=== PATIENT | female | born 1950 | race Caucasian/White ===

== ENCOUNTER 2021-05-14 18:04 | Emergency (ER) | payer OTHER, MEDICAID ==
[~2021-05-14] VITALS: Ht 162.6 cm; Wt 90.7 kg
[~2021-05-14 18:04] MED LIST: ARIP2TAB PO; DULO60CA PO; LEV50T PO; MELO1TAB73 PO; METO25TA93 PO; OMEP20CA74 PO; TRAZ100T3 PO
[2021-05-14] MEDS ORDERED: LORazepam 2MG/ML-1ML VIAL IV ONE (18:45)
[2021-05-14 19:38] LABS: Basophils # (auto) 0 10 ^3/uL (0-0.2); Basophils % (auto) 0.4 % (0.0-2.0); Eosinophils # (auto) 0.1 10 ^3/uL (0-0.8); Eosinophils % (auto) 1.6 % (0.0-7.0); Hematocrit 45.7 % (36.0-46.0); Hemoglobin 14.9 g/dL (12.2-16.2); Lymphocytes # (auto) 1.9 10 ^3/uL (0.4-5.4); Lymphocytes % (auto) 24.9 % (10.0-50.0); Mean Corpuscular Hemoglobin 29.3 pg (28.0-32.0); Mean Corpuscular Hgb Conc. 32.7 g/dL (32.0-36.0); Mean Corpuscular Volume 89.7 fL (80.0-100.0); Monocytes # (auto) 0.6 10 ^3/uL (0-1.3); Monocytes % (auto) 7.2 % (0.0-12.0); Neutrophils # (auto) 5.1 10 ^3/uL (1.6-8.6); Neutrophils % (auto) 65.9 % (37.0-80.0); Nucleated Red Blood Cells % 0.1 %; Red Blood Cells 5.09 10^6/uL (4.0-5.20); Red Cell Distribution Width 13.9 % (11.8-14.3); White Blood Cell 7.8 10^3/uL (4.4-10.8)
[2021-05-14 19:52] LABS: Albumin 3.2 g/dL (3.4-5.0); Calcium 8.7 mg/dL (8.5-10.1)
[2021-05-14 19:56] LABS: BUN/Creatinine Ratio 9.7; Bilirubin, Total 0.7 mg/dL (0.2-1.0); Total Protein 7.4 g/dL (6.4-8.2)
[2021-05-14] MEDS ORDERED: levETIRAcetam 500 MG/5ML INJ IV ONE (20:57)
[2021-05-14 21:04] LABS: Lactic Acid w/Reflex 3.2 mmol/L (0.4-2.0)
[2021-05-14] MEDS ORDERED: KETOROLAC TROMETH 30 MG/ML 1ML VIAL IV ONE (21:45)
[2021-05-14 22:05] LABS: Lipase 110 U/L (73-393)
[2021-05-14 23:00] VITALS: BP 125/66
== END 2021-05-15 00:24 | disposition home or self-care (01) ==
LOC: EDBD 18:04 → ER 18:06
DX: R56.9 Unspecified convulsions (principal); I10 Essential (primary) hypertension; E78.5 Hyperlipidemia, unspecified; M19.90 Unspecified osteoarthritis, unspecified site; Z88.1 Allergy status to other antibiotic agents; Z79.899 Other long term (current) drug therapy
CPT/HCPCS: 36415; 70450; 71045; 80053; 82542; 83605; 83690; 84484; 85025; 96365; 96375; 99285; J1885; J1953; J2060; J7060

== ENCOUNTER 2021-09-11 03:31 | Inpatient (IN) | payer OTHER, MEDICAID ==
[~2021-09-11] VITALS: Ht 172.7 cm; Wt 104.4 kg
[2021-09-11] MEDS ORDERED: LORazepam 2MG/ML-1ML VIAL IV ONE (03:50)
[2021-09-11] MEDS ORDERED: ACETAMINOPHEN 650 MG RECT SUPP PR ONE (04:15)
[2021-09-11 05:03] LABS: Basophils # (auto) 0 10 ^3/uL (0-0.2); Basophils % (auto) 0.3 % (0.0-2.0); Eosinophils # (auto) 0 10 ^3/uL (0-0.8); Hematocrit 42.5 % (36.0-46.0); Hemoglobin 14.4 g/dL (12.2-16.2); Lymphocytes # (auto) 0.7 10 ^3/uL (0.4-5.4); Lymphocytes % (auto) 5.7 % (10.0-50.0); Mean Corpuscular Hgb Conc. 33.9 g/dL (32.0-36.0); Mean Corpuscular Volume 88.4 fL (80.0-100.0); Monocytes # (auto) 0.5 10 ^3/uL (0-1.3); Monocytes % (auto) 4.1 % (0.0-12.0); Neutrophils # (auto) 10.5 10 ^3/uL (1.6-8.6); Neutrophils % (auto) 89.9 % (37.0-80.0); Nucleated Red Blood Cells % 0.2 %; Red Blood Cells 4.81 10^6/uL (4.0-5.20); White Blood Cell 11.7 10^3/uL (4.4-10.8)
[2021-09-11 05:21] LABS: Albumin 3.5 g/dL (3.4-5.0); Calcium 9.4 mg/dL (8.5-10.1); Potassium 4.8 mmol/L (3.5-5.1)
[2021-09-11 05:24] LABS: Lactic Acid w/Reflex 2.2 mmol/L (0.4-2.0)
[2021-09-11 05:28] LABS: BUN/Creatinine Ratio 10.9; Bilirubin, Total 0.7 mg/dL (0.2-1.0); Total Protein 7.4 g/dL (6.4-8.2)
[2021-09-11 05:38] LABS: INR 1.06 (0.9-1.15); Partial Thromboplastin Time 23.6 sec (23.6-33.0)
[2021-09-11] MEDS ORDERED: SODIUM CHLORIDE 0.9% 1,000 ML IV ONE (06:00)
[2021-09-11] MEDS ORDERED: levoFLOXacin 750MG 150 ML IV ONE (06:00)
[2021-09-11] MEDS ORDERED: ENOXAPARIN SOD 100 MG/1 ML SYRINGE SC ONE (06:15)
[2021-09-11] MEDS ORDERED: ASPirin 300 MG RECTAL SUPP PR ONE (06:15)
[2021-09-11 06:29] LABS: Urine Bacteria MANY /hpf (None Seen); Urine Blood 1+ /uL (Negative); Urine Hyaline Cast FEW /lpf (0 - 2); Urine Mucus FEW (None Seen); Urine Specific Gravity 1.019 (1.001-1.035); Urine WBC 1169 /hpf (0 - 5); Urine WBC Clumps PRESENT /hpf (None Seen)
[2021-09-11] MEDS ORDERED: MORPHINE SULFATE INJECTION 2 MG/ML SYRG IV PRN ×2 (10:30→11:45)
[2021-09-11] MEDS ORDERED: NITROGLYCERIN 0.4 MG SL TAB SL PRN (10:30)
[2021-09-11] MEDS ORDERED: METOPROLOL SUCCINATE XL 50 MG TAB PO ONE (11:45)
[2021-09-11] MEDS ORDERED: VANCOMYCIN PER PHARMACY 0 MG IV SCH (11:45)
[2021-09-11] MEDS ORDERED: FOLIC ACID 1 MG TAB PO ONE (11:45)
[2021-09-11] MEDS ORDERED: MEROPENEM 1GM IVPB 100 ML IV ONE (11:45)
[2021-09-11] MEDS ORDERED: LACTULOSE 20Gm/30ML SOLN PO PRN (11:45)
[2021-09-11] MEDS ORDERED: ASPirin 81 mg TAB PO ONE (11:45)
[2021-09-11] MEDS ORDERED: ATORVASTATIN 20 MG TAB PO ONE (11:45)
[2021-09-11] MEDS ORDERED: PANTOPRAZOLE 40 MG/10 ML VIAL INJ IV ONE (11:45)
[2021-09-11] MEDS ORDERED: SUCRALFATE 1 GM/10 ML ORAL SUSP PO ONE (11:45)
[2021-09-11] MEDS ORDERED: HYDROcodone-ACET 5/325MG TAB PO ONE (11:45)
[2021-09-11] MEDS ORDERED: LORazepam 0.5 MG TAB PO PRN (11:45)
[2021-09-11] MEDS ORDERED: DOCUSATE SOD 100 MG CAP PO PRN (11:45)
[2021-09-11] MEDS ORDERED: HYDROcodone-ACET 5/325MG TAB PO PRN (11:45)
[2021-09-11] MEDS ORDERED: LORazepam 2MG/ML-1ML VIAL IV PRN (11:45)
[2021-09-11] MEDS ORDERED: IPRATROPIUM BROM 0.5 MG/2.5ML INH SOL NEB ONE (11:45)
[2021-09-11] MEDS ORDERED: ONDANSETRON HCL 4 MG/2 ML VIAL IV PRN (11:45)
[2021-09-11 13:00] VITALS: BP 94/68
[2021-09-11] MEDS: SODIUM CHLORIDE 0.9% 1,000 ML IV SCH (13:06)
[2021-09-11 13:26] VITALS: BP 110/76
[2021-09-11 14:16] VITALS: BP 99/68
[2021-09-11] MEDS: VANCOMYCIN 1GM/250ML 250 ML IV SCH (16:32)
[2021-09-11] MEDS: SUCRALFATE 1 GM/10 ML ORAL SUSP PO SCH ×2 (16:32→22:00)
[2021-09-11 17:00] VITALS: BP 117/72
[2021-09-11] MEDS: IPRATROPIUM BROM 0.5 MG/2.5ML INH SOL NEB SCH ×2 (18:35→22:00)
[2021-09-11 22:00] VITALS: BP 115/76
[2021-09-11] MEDS ORDERED: MEROPENEM 1GM IVPB 100 ML IV SCH (22:00)
[2021-09-11] MEDS: HEPARIN SODIUM (PORCINE) 5000 UNITS/ML 1ML VIAL SC SCH (22:05)
[2021-09-11] MEDS: CEFEPIME 1 GM in SODIUM CHL 0.9% 50 ML IV SCH (22:40)
[2021-09-12] VITALS (10 sets, daily range): BP systolic 81–113; BP diastolic 36–65
[2021-09-12] MEDS: IPRATROPIUM BROM 0.5 MG/2.5ML INH SOL NEB SCH ×6 (02:00→22:12)
[2021-09-12] MEDS: CEFEPIME 1 GM in SODIUM CHL 0.9% 50 ML IV SCH ×3 (02:40→22:46)
[2021-09-12] MEDS: SODIUM CHLORIDE 0.9% 1,000 ML IV SCH ×2 (04:45→18:54)
[2021-09-12 06:00] LABS: Basophils # (auto) 0 10 ^3/uL (0-0.2); Basophils % (auto) 0.2 % (0.0-2.0); Eosinophils # (auto) 0 10 ^3/uL (0-0.8); Hematocrit 36.6 % (36.0-46.0); Hemoglobin 12.6 g/dL (12.2-16.2); Lymphocytes % (auto) 9.1 % (10.0-50.0); Mean Corpuscular Hgb Conc. 34.3 g/dL (32.0-36.0); Mean Corpuscular Volume 87.3 fL (80.0-100.0); Monocytes # (auto) 0.6 10 ^3/uL (0-1.3); Monocytes % (auto) 5.5 % (0.0-12.0); Neutrophils # (auto) 9.4 10 ^3/uL (1.6-8.6); Neutrophils % (auto) 85.2 % (37.0-80.0); Red Cell Distribution Width 15.2 % (11.8-14.3)
[2021-09-12 06:15] LABS: BUN/Creatinine Ratio 19.1; Calcium 8.8 mg/dL (8.5-10.1); Potassium 3.5 mmol/L (3.5-5.1)
[2021-09-12] MEDS: SUCRALFATE 1 GM/10 ML ORAL SUSP PO SCH ×4 (06:46→22:00)
[2021-09-12] MEDS ORDERED: LEVOTHYROXINE SODIUM 50 MCG TAB PO SCH (07:00)
[2021-09-12] MEDS ORDERED: ASPirin 81 mg TAB PO SCH (10:00)
[2021-09-12] MEDS: CHOLECALCIFEROL (VITD3) 2,000 UNIT CAP/TAB PO SCH (10:00)
[2021-09-12] MEDS: CYANOCOBALAMIN 500 MCG TAB PO SCH (10:00)
[2021-09-12] MEDS: FOLIC ACID 1 MG TAB PO SCH (10:00)
[2021-09-12] MEDS ORDERED: METOPROLOL SUCCINATE XL 50 MG TAB PO SCH (10:00)
[2021-09-12] MEDS ORDERED: DULoxetine HCL 30 MG CAP PO SCH (10:00)
[2021-09-12] MEDS: THIAMINE HCL 100 MG TAB PO SCH (10:00)
[2021-09-12] MEDS: PANTOPRAZOLE 40 MG/10 ML VIAL INJ IV SCH (10:47)
[2021-09-12] MEDS: HEPARIN SODIUM (PORCINE) 5000 UNITS/ML 1ML VIAL SC SCH ×2 (11:02→22:07)
[2021-09-12] MEDS: VANCOMYCIN 1GM/250ML 250 ML IV SCH (11:33)
[2021-09-12] MEDS ORDERED: ACETAMINOPHEN 650 MG RECT SUPP PR PRN (14:30)
[2021-09-12] MEDS ORDERED: SODIUM CHLORIDE 0.9% 1,000 ML IV ONE ×2 (14:30→15:00)
[2021-09-12] MEDS ORDERED: ASPirin 300 MG RECTAL SUPP PR SCH (14:49)
[2021-09-12] MEDS: ACETAMINOPHEN 650 MG RECT SUPP PR PRN ×2 (15:30→17:57)
[2021-09-12] MEDS ORDERED: DEXTROSE (50%) 50ML SYRG IV PRN (16:00)
[2021-09-12] MEDS ORDERED: CLOP75TA28 PO (16:33)
[2021-09-12] MEDS ORDERED: FOLI1TAB6 PO (16:33)
[2021-09-12] MEDS ORDERED: ATOR20TA PO (16:33)
[2021-09-12] MEDS ORDERED: LEVE500T32 PO (16:33)
[2021-09-12] MEDS: InsuLIN REG 1unit/0.01ml Soln (100units/ml) SC SCH (18:00)
[2021-09-12] MEDS: ACCU-CHEK COMFORT CURVE STRIP VI SCH (18:00)
[2021-09-12] MEDS: LEVOTHYROXINE SODIUM 100 MCG/5 ML INJ IV SCH (18:54)
[2021-09-12] MEDS ORDERED: ATORVASTATIN 20 MG TAB PO SCH (22:00)
[2021-09-12] MEDS: ATORVASTATIN 20 MG TAB PO SCH (22:30)
[2021-09-13] VITALS (56 sets, daily range): BP systolic 87–122; BP diastolic 46–97
[2021-09-13] MEDS: InsuLIN REG 1unit/0.01ml Soln (100units/ml) SC SCH ×5 (01:22→23:44)
[2021-09-13] MEDS: ACCU-CHEK COMFORT CURVE STRIP VI SCH ×5 (01:22→23:36)
[2021-09-13] MEDS: SODIUM CHLORIDE 0.9% 1,000 ML IV SCH ×3 (02:00→21:32)
[2021-09-13] MEDS: IPRATROPIUM BROM 0.5 MG/2.5ML INH SOL NEB SCH ×6 (02:17→22:11)
[2021-09-13] MEDS: VANCOMYCIN 1GM/250ML 250 ML IV SCH ×2 (03:43→21:31)
[2021-09-13 05:17] LABS: Calcium 8.8 mg/dL (8.5-10.1); Potassium 3.3 mmol/L (3.5-5.1)
[2021-09-13] MEDS: CEFEPIME 1 GM in SODIUM CHL 0.9% 50 ML IV SCH ×3 (05:50→21:32)
[2021-09-13] MEDS: SUCRALFATE 1 GM/10 ML ORAL SUSP PO SCH ×4 (05:53→22:00)
[2021-09-13] MEDS: PANTOPRAZOLE 40 MG/10 ML VIAL INJ IV SCH (09:31)
[2021-09-13] MEDS: HEPARIN SODIUM (PORCINE) 5000 UNITS/ML 1ML VIAL SC SCH ×2 (09:34→22:28)
[2021-09-13] MEDS: CYANOCOBALAMIN 500 MCG TAB PO SCH (09:37)
[2021-09-13] MEDS: CHOLECALCIFEROL (VITD3) 2,000 UNIT CAP/TAB PO SCH (09:37)
[2021-09-13] MEDS: FOLIC ACID 1 MG TAB PO SCH (09:37)
[2021-09-13] MEDS: THIAMINE HCL 100 MG TAB PO SCH (09:37)
[2021-09-13] MEDS: LEVOTHYROXINE SODIUM 100 MCG/5 ML INJ IV SCH (10:15)
[2021-09-13] MEDS: ASPirin 300 MG RECTAL SUPP PR SCH (10:15)
[2021-09-13] MEDS: LORazepam 2MG/ML-1ML VIAL IV PRN ×3 (10:26→17:22)
[2021-09-13] MEDS ORDERED: FUROSEMIDE 40 MG/4 ML VIAL IV ONE (11:15)
[2021-09-13] MEDS ORDERED: methylPREDNISolone SOD SUCC 125 MG/2 ML VL IV ONE (11:15)
[2021-09-13] MEDS: NOREPINEPHRINE 8 MG/250ML KIT 250 ML IV SCH (12:30)
[2021-09-13] MEDS ORDERED: POTASSIUM CHL 20MEQ/100ML 100 ML IV ONE (13:30)
[2021-09-13] MEDS ORDERED: MEROPENEM 500MG IVPB 50 ML IV SCH (14:00)
[2021-09-13 14:15] LABS: Basophils # (auto) 0 10 ^3/uL (0-0.2); Basophils % (auto) 0.3 % (0.0-2.0); Eosinophils # (auto) 0 10 ^3/uL (0-0.8); Eosinophils % (auto) 0.2 % (0.0-7.0); Hematocrit 41.7 % (36.0-46.0); Hemoglobin 13.8 g/dL (12.2-16.2); Lymphocytes # (auto) 1.7 10 ^3/uL (0.4-5.4); Lymphocytes % (auto) 11.7 % (10.0-50.0); Mean Corpuscular Hemoglobin 29.5 pg (28.0-32.0); Mean Corpuscular Hgb Conc. 33.1 g/dL (32.0-36.0); Mean Corpuscular Volume 88.9 fL (80.0-100.0); Monocytes % (auto) 6.8 % (0.0-12.0); Neutrophils # (auto) 11.5 10 ^3/uL (1.6-8.6); Nucleated Red Blood Cells % 0.1 %; Red Blood Cells 4.69 10^6/uL (4.0-5.20); White Blood Cell 14.2 10^3/uL (4.4-10.8)
[2021-09-13] MEDS ORDERED: ROCURONIUM 10MG/ML 10ML VIAL IV ONE (14:45)
[2021-09-13] MEDS ORDERED: ETOMIDATE (2MG/ML) 20ML VIAL IV ONE (14:45)
[2021-09-13] MEDS ORDERED: MIDAZOLAM DRIP 50 mg/50mL 50 ML IV SCH (14:45)
[2021-09-13] MEDS: PROPOFOL 100 ML IV SCH ×2 (15:11→21:00)
[2021-09-13] MEDS: fentaNYL Drip 2500mCg/250mlNS 250 ML IV SCH (15:13)
[2021-09-13] MEDS: ATORVASTATIN 20 MG TAB PO SCH (22:00)
[2021-09-14] VITALS (50 sets, daily range): BP systolic 80–128; BP diastolic 40–84
[2021-09-14] MEDS: IPRATROPIUM BROM 0.5 MG/2.5ML INH SOL NEB SCH ×6 (02:05→22:16)
[2021-09-14 05:11] LABS: Basophils # (auto) 0 10 ^3/uL (0-0.2); Basophils % (auto) 0.2 % (0.0-2.0); Eosinophils # (auto) 0 10 ^3/uL (0-0.8); Hematocrit 36.3 % (36.0-46.0); Hemoglobin 12.4 g/dL (12.2-16.2); Lymphocytes # (auto) 1.1 10 ^3/uL (0.4-5.4); Lymphocytes % (auto) 10.9 % (10.0-50.0); Mean Corpuscular Hemoglobin 29.8 pg (28.0-32.0); Mean Corpuscular Hgb Conc. 34.1 g/dL (32.0-36.0); Mean Corpuscular Volume 87.4 fL (80.0-100.0); Monocytes # (auto) 0.4 10 ^3/uL (0-1.3); Monocytes % (auto) 4.2 % (0.0-12.0); Neutrophils # (auto) 8.3 10 ^3/uL (1.6-8.6); Neutrophils % (auto) 84.7 % (37.0-80.0); Nucleated Red Blood Cells % 0.1 %; Red Blood Cells 4.15 10^6/uL (4.0-5.20); Red Cell Distribution Width 14.6 % (11.8-14.3); White Blood Cell 9.8 10^3/uL (4.4-10.8)
[2021-09-14] MEDS: PROPOFOL 100 ML IV SCH ×4 (05:15→19:49)
[2021-09-14 05:24] LABS: Calcium 8.7 mg/dL (8.5-10.1); Potassium 3.2 mmol/L (3.5-5.1)
[2021-09-14 05:26] LABS: BUN/Creatinine Ratio 25.7
[2021-09-14] MEDS: CEFEPIME 1 GM in SODIUM CHL 0.9% 50 ML IV SCH ×3 (05:31→22:00)
[2021-09-14] MEDS: ACCU-CHEK COMFORT CURVE STRIP VI SCH ×3 (05:47→18:00)
[2021-09-14] MEDS: InsuLIN REG 1unit/0.01ml Soln (100units/ml) SC SCH ×3 (05:47→17:50)
[2021-09-14] MEDS: SUCRALFATE 1 GM/10 ML ORAL SUSP PO SCH ×4 (05:47→21:17)
[2021-09-14] MEDS: PANTOPRAZOLE 40 MG/10 ML VIAL INJ IV SCH (09:33)
[2021-09-14] MEDS: methylPREDNISolone SOD SUCC 40 MG/ML VL IV SCH ×2 (09:33→21:09)
[2021-09-14] MEDS: HEPARIN SODIUM (PORCINE) 5000 UNITS/ML 1ML VIAL SC SCH ×2 (09:37→21:10)
[2021-09-14] MEDS: SODIUM CHLORIDE 0.9% 1,000 ML IV SCH ×3 (09:40→23:45)
[2021-09-14] MEDS: CHOLECALCIFEROL (VITD3) 2,000 UNIT CAP/TAB PO SCH (10:00)
[2021-09-14] MEDS: FOLIC ACID 1 MG TAB PO SCH (10:00)
[2021-09-14] MEDS: CYANOCOBALAMIN 500 MCG TAB PO SCH (10:00)
[2021-09-14] MEDS: LEVOTHYROXINE SODIUM 100 MCG/5 ML INJ IV SCH (10:00)
[2021-09-14] MEDS: ASPirin 300 MG RECTAL SUPP PR SCH (10:00)
[2021-09-14] MEDS: THIAMINE HCL 100 MG TAB PO SCH (10:00)
[2021-09-14] MEDS: MIDAZOLAM DRIP 50 mg/50mL 50 ML IV SCH (11:44)
[2021-09-14] MEDS: POTASSIUM CHL 20MEQ/100ML 100 ML IV SCH ×2 (13:38→15:23)
[2021-09-14] MEDS: fentaNYL Drip 2500mCg/250mlNS 250 ML IV SCH (14:45)
[2021-09-14] MEDS: NOREPINEPHRINE 8 MG/250ML KIT 250 ML IV SCH (15:31)
[2021-09-14] MEDS: VANCOMYCIN 1GM/250ML 250 ML IV SCH (17:35)
[2021-09-14] MEDS: ATORVASTATIN 20 MG TAB PO SCH (21:09)
[2021-09-15] VITALS (97 sets, daily range): BP systolic 84–138; BP diastolic 33–107
[2021-09-15] MEDS: ACCU-CHEK COMFORT CURVE STRIP VI SCH ×5 (00:05→22:45)
[2021-09-15] MEDS: InsuLIN REG 1unit/0.01ml Soln (100units/ml) SC SCH ×5 (00:06→22:45)
[2021-09-15] MEDS: IPRATROPIUM BROM 0.5 MG/2.5ML INH SOL NEB SCH ×4 (02:00→13:55)
[2021-09-15 03:46] LABS: Basophils # (auto) 0.1 10 ^3/uL (0-0.2); Basophils % (auto) 0.9 % (0.0-2.0); Eosinophils # (auto) 0 10 ^3/uL (0-0.8); Hematocrit 37.2 % (36.0-46.0); Hemoglobin 12.5 g/dL (12.2-16.2); Lymphocytes % (auto) 6.1 % (10.0-50.0); Mean Corpuscular Hemoglobin 29.4 pg (28.0-32.0); Mean Corpuscular Hgb Conc. 33.6 g/dL (32.0-36.0); Mean Corpuscular Volume 87.5 fL (80.0-100.0); Monocytes # (auto) 0.5 10 ^3/uL (0-1.3); Monocytes % (auto) 3.3 % (0.0-12.0); Neutrophils # (auto) 14.3 10 ^3/uL (1.6-8.6); Neutrophils % (auto) 89.7 % (37.0-80.0); Nucleated Red Blood Cells % 0.7 %; Red Blood Cells 4.25 10^6/uL (4.0-5.20)
[2021-09-15 04:06] LABS: BUN/Creatinine Ratio 27.8; Calcium 8.4 mg/dL (8.5-10.1); Potassium 3.4 mmol/L (3.5-5.1)
[2021-09-15] MEDS: CEFEPIME 1 GM in SODIUM CHL 0.9% 50 ML IV SCH ×3 (05:33→14:17)
[2021-09-15] MEDS: SODIUM CHLORIDE 0.9% 1,000 ML IV SCH ×3 (05:34→23:45)
[2021-09-15] MEDS: SUCRALFATE 1 GM/10 ML ORAL SUSP PO SCH ×4 (05:34→22:20)
[2021-09-15] MEDS: HEPARIN SODIUM (PORCINE) 5000 UNITS/ML 1ML VIAL SC SCH ×2 (09:25→22:20)
[2021-09-15] MEDS: FOLIC ACID 1 MG TAB PO SCH (09:34)
[2021-09-15] MEDS: THIAMINE HCL 100 MG TAB PO SCH (09:34)
[2021-09-15] MEDS: PANTOPRAZOLE 40 MG/10 ML VIAL INJ IV SCH (09:34)
[2021-09-15] MEDS: methylPREDNISolone SOD SUCC 40 MG/ML VL IV SCH ×2 (09:34→22:20)
[2021-09-15] MEDS: CHOLECALCIFEROL (VITD3) 2,000 UNIT CAP/TAB PO SCH (09:34)
[2021-09-15] MEDS: CYANOCOBALAMIN 500 MCG TAB PO SCH (09:34)
[2021-09-15] MEDS: ASPirin 300 MG RECTAL SUPP PR SCH (09:35)
[2021-09-15] MEDS: LEVOTHYROXINE SODIUM 100 MCG/5 ML INJ IV SCH (09:35)
[2021-09-15] MEDS: VANCOMYCIN 1GM/250ML 250 ML IV SCH ×2 (09:42→22:59)
[2021-09-15] MEDS: NOREPINEPHRINE 8 MG/250ML KIT 250 ML IV SCH ×2 (11:15→12:06)
[2021-09-15] MEDS: MIDAZOLAM DRIP 50 mg/50mL 50 ML IV SCH (11:30)
[2021-09-15] MEDS ORDERED: POTASSIUM CHL 20MEQ/100ML 100 ML IV ONE (14:00)
[2021-09-15 14:16] LABS: Urine Bacteria FEW /hpf (None Seen); Urine Blood Negative /uL (Negative); Urine Mucus FEW (None Seen); Urine Specific Gravity 1.022 (1.001-1.035); Urine WBC 6 /hpf (0 - 5)
[2021-09-15] MEDS: fentaNYL Drip 2500mCg/250mlNS 250 ML IV SCH (14:43)
[2021-09-16] VITALS (75 sets, daily range): BP systolic 96–143; BP diastolic 43–79
[2021-09-16] MEDS: ATORVASTATIN 20 MG TAB PO SCH ×2 (00:40→23:00)
[2021-09-16] MEDS: CEFEPIME 1 GM in SODIUM CHL 0.9% 50 ML IV SCH ×3 (00:40→14:20)
[2021-09-16 04:22] LABS: Basophils # (auto) 0 10 ^3/uL (0-0.2); Basophils % (auto) 0.2 % (0.0-2.0); Eosinophils # (auto) 0 10 ^3/uL (0-0.8); Hematocrit 35.8 % (36.0-46.0); Hemoglobin 12.2 g/dL (12.2-16.2); Lymphocytes # (auto) 0.9 10 ^3/uL (0.4-5.4); Lymphocytes % (auto) 7.8 % (10.0-50.0); Mean Corpuscular Hgb Conc. 34.2 g/dL (32.0-36.0); Mean Corpuscular Volume 87.7 fL (80.0-100.0); Monocytes # (auto) 0.5 10 ^3/uL (0-1.3); Monocytes % (auto) 3.8 % (0.0-12.0); Neutrophils # (auto) 10.5 10 ^3/uL (1.6-8.6); Neutrophils % (auto) 88.2 % (37.0-80.0); Nucleated Red Blood Cells % 0.1 %; Red Blood Cells 4.08 10^6/uL (4.0-5.20); Red Cell Distribution Width 14.9 % (11.8-14.3); White Blood Cell 11.9 10^3/uL (4.4-10.8)
[2021-09-16 04:37] LABS: BUN/Creatinine Ratio 20.5; Calcium 8.1 mg/dL (8.5-10.1); Potassium 3.7 mmol/L (3.5-5.1)
[2021-09-16] MEDS: ACCU-CHEK COMFORT CURVE STRIP VI SCH ×3 (05:59→17:03)
[2021-09-16] MEDS: InsuLIN REG 1unit/0.01ml Soln (100units/ml) SC SCH ×3 (06:00→17:03)
[2021-09-16] MEDS: SUCRALFATE 1 GM/10 ML ORAL SUSP PO SCH ×4 (06:09→23:00)
[2021-09-16] MEDS: fentaNYL Drip 2500mCg/250mlNS 250 ML IV SCH ×2 (08:02→21:35)
[2021-09-16] MEDS: NOREPINEPHRINE 8 MG/250ML KIT 250 ML IV SCH (08:03)
[2021-09-16] MEDS: SODIUM CHLORIDE 0.9% 1,000 ML IV SCH ×3 (08:05→23:45)
[2021-09-16] MEDS: LEVOTHYROXINE SODIUM 100 MCG/5 ML INJ IV SCH (09:12)
[2021-09-16] MEDS: PANTOPRAZOLE 40 MG/10 ML VIAL INJ IV SCH (09:12)
[2021-09-16] MEDS: methylPREDNISolone SOD SUCC 40 MG/ML VL IV SCH ×2 (09:12→23:00)
[2021-09-16] MEDS: THIAMINE HCL 100 MG TAB PO SCH (09:13)
[2021-09-16] MEDS: FOLIC ACID 1 MG TAB PO SCH (09:13)
[2021-09-16] MEDS: CYANOCOBALAMIN 500 MCG TAB PO SCH (09:13)
[2021-09-16] MEDS: CHOLECALCIFEROL (VITD3) 2,000 UNIT CAP/TAB PO SCH (09:14)
[2021-09-16] MEDS: HEPARIN SODIUM (PORCINE) 5000 UNITS/ML 1ML VIAL SC SCH ×2 (09:21→23:00)
[2021-09-16] MEDS: VANCOMYCIN 1GM/250ML 250 ML IV SCH ×2 (10:11→23:00)
[2021-09-16] MEDS: ASPirin 300 MG RECTAL SUPP PR SCH (10:11)
[2021-09-16 10:50] LABS: INR 1.03 (0.9-1.15)
[2021-09-16] MEDS: MIDAZOLAM DRIP 50 mg/50mL 50 ML IV SCH (11:17)
[2021-09-16] MEDS: PROPOFOL 100 ML IV SCH (14:25)
[2021-09-17] VITALS (103 sets, daily range): BP systolic 61–139; BP diastolic 35–123
[2021-09-17] MEDS: CEFEPIME 1 GM in SODIUM CHL 0.9% 50 ML IV SCH ×4 (00:30→23:50)
[2021-09-17 04:54] LABS: Basophils # (auto) 0 10 ^3/uL (0-0.2); Basophils % (auto) 0.2 % (0.0-2.0); Eosinophils # (auto) 0 10 ^3/uL (0-0.8); Lymphocytes # (auto) 1.1 10 ^3/uL (0.4-5.4); Lymphocytes % (auto) 11.5 % (10.0-50.0); Mean Corpuscular Hemoglobin 29.9 pg (28.0-32.0); Mean Corpuscular Hgb Conc. 34.2 g/dL (32.0-36.0); Mean Corpuscular Volume 87.3 fL (80.0-100.0); Monocytes # (auto) 0.5 10 ^3/uL (0-1.3); Monocytes % (auto) 5.6 % (0.0-12.0); Neutrophils # (auto) 7.8 10 ^3/uL (1.6-8.6); Neutrophils % (auto) 82.7 % (37.0-80.0); Nucleated Red Blood Cells % 0.1 %; Red Blood Cells 4.01 10^6/uL (4.0-5.20); White Blood Cell 9.4 10^3/uL (4.4-10.8)
[2021-09-17 05:02] LABS: Potassium 3.5 mmol/L (3.5-5.1)
[2021-09-17 05:04] LABS: BUN/Creatinine Ratio 17.2
[2021-09-17] MEDS: ACCU-CHEK COMFORT CURVE STRIP VI SCH ×4 (06:00→17:15)
[2021-09-17] MEDS: InsuLIN REG 1unit/0.01ml Soln (100units/ml) SC SCH ×4 (06:00→17:14)
[2021-09-17] MEDS: SUCRALFATE 1 GM/10 ML ORAL SUSP PO SCH ×4 (07:17→21:08)
[2021-09-17] MEDS: SODIUM CHLORIDE 0.9% 1,000 ML IV SCH ×3 (08:04→23:45)
[2021-09-17] MEDS: LEVOTHYROXINE SODIUM 100 MCG/5 ML INJ IV SCH (09:56)
[2021-09-17] MEDS: methylPREDNISolone SOD SUCC 40 MG/ML VL IV SCH ×2 (09:58→21:07)
[2021-09-17] MEDS: FOLIC ACID 1 MG TAB PO SCH (10:00)
[2021-09-17] MEDS: PANTOPRAZOLE 40 MG/10 ML VIAL INJ IV SCH (10:00)
[2021-09-17] MEDS: CHOLECALCIFEROL (VITD3) 2,000 UNIT CAP/TAB PO SCH (10:01)
[2021-09-17] MEDS: CYANOCOBALAMIN 500 MCG TAB PO SCH (10:01)
[2021-09-17] MEDS: ASPirin 81 mg TAB PO SCH (10:02)
[2021-09-17] MEDS: HEPARIN SODIUM (PORCINE) 5000 UNITS/ML 1ML VIAL SC SCH ×2 (10:15→21:08)
[2021-09-17] MEDS: THIAMINE HCL 100 MG TAB PO SCH (10:28)
[2021-09-17] MEDS: NOREPINEPHRINE 8 MG/250ML KIT 250 ML IV SCH ×2 (11:15→18:30)
[2021-09-17] MEDS: MIDAZOLAM DRIP 50 mg/50mL 50 ML IV SCH (12:16)
[2021-09-17] MEDS: PROPOFOL 100 ML IV SCH (14:45)
[2021-09-17] MEDS: fentaNYL Drip 2500mCg/250mlNS 250 ML IV SCH (18:28)
[2021-09-17] MEDS: ATORVASTATIN 20 MG TAB PO SCH (21:09)
[2021-09-17] MEDS ORDERED: VERAPAMIL 2.5MG/ML INJ 2ML VIAL IV ONE ×2 (22:15→23:00)
[2021-09-18] VITALS (91 sets, daily range): BP systolic 88–138; BP diastolic 41–83
[2021-09-18] MEDS: ACCU-CHEK COMFORT CURVE STRIP VI SCH ×5 (00:30→23:37)
[2021-09-18] MEDS: InsuLIN REG 1unit/0.01ml Soln (100units/ml) SC SCH ×5 (00:30→23:37)
[2021-09-18] MEDS: NOREPINEPHRINE 8 MG/250ML KIT 250 ML IV SCH (02:00)
[2021-09-18 04:08] LABS: Basophils # (auto) 0 10 ^3/uL (0-0.2); Basophils % (auto) 0.1 % (0.0-2.0); Eosinophils # (auto) 0 10 ^3/uL (0-0.8); Hematocrit 34.5 % (36.0-46.0); Hemoglobin 11.7 g/dL (12.2-16.2); Lymphocytes # (auto) 1.2 10 ^3/uL (0.4-5.4); Lymphocytes % (auto) 12.1 % (10.0-50.0); Mean Corpuscular Hemoglobin 29.9 pg (28.0-32.0); Mean Corpuscular Volume 87.8 fL (80.0-100.0); Monocytes # (auto) 0.6 10 ^3/uL (0-1.3); Monocytes % (auto) 5.6 % (0.0-12.0); Neutrophils # (auto) 8.1 10 ^3/uL (1.6-8.6); Neutrophils % (auto) 82.2 % (37.0-80.0); Nucleated Red Blood Cells % 0.1 %; Red Blood Cells 3.93 10^6/uL (4.0-5.20); Red Cell Distribution Width 15.3 % (11.8-14.3); White Blood Cell 9.9 10^3/uL (4.4-10.8)
[2021-09-18 04:11] LABS: Calcium 7.9 mg/dL (8.5-10.1); Potassium 3.5 mmol/L (3.5-5.1)
[2021-09-18] MEDS: CEFEPIME 1 GM in SODIUM CHL 0.9% 50 ML IV SCH ×3 (05:21→23:03)
[2021-09-18] MEDS: SUCRALFATE 1 GM/10 ML ORAL SUSP PO SCH ×4 (05:22→21:08)
[2021-09-18] MEDS: HEPARIN SODIUM (PORCINE) 5000 UNITS/ML 1ML VIAL SC SCH (08:41)
[2021-09-18] MEDS: VANCOMYCIN 1GM/250ML 250 ML IV SCH (08:46)
[2021-09-18] MEDS: SODIUM CHLORIDE 0.9% 1,000 ML IV SCH ×3 (08:53→23:37)
[2021-09-18] MEDS: APIXABAN 2.5 MG TAB PO SCH ×2 (10:00→21:08)
[2021-09-18] MEDS: LEVOTHYROXINE SODIUM 100 MCG/5 ML INJ IV SCH (10:58)
[2021-09-18] MEDS: FOLIC ACID 1 MG TAB PO SCH (10:59)
[2021-09-18] MEDS: CYANOCOBALAMIN 500 MCG TAB PO SCH (10:59)
[2021-09-18] MEDS: CHOLECALCIFEROL (VITD3) 2,000 UNIT CAP/TAB PO SCH (10:59)
[2021-09-18] MEDS: THIAMINE HCL 100 MG TAB PO SCH (10:59)
[2021-09-18] MEDS: methylPREDNISolone SOD SUCC 40 MG/ML VL IV SCH ×2 (11:00→22:07)
[2021-09-18] MEDS: AMIODARONE HCL 200 MG TAB PO SCH (11:00)
[2021-09-18] MEDS: ASPirin 81 mg TAB PO SCH (11:00)
[2021-09-18] MEDS: POTASSIUM CHL 20MEQ/100ML 100 ML IV SCH ×2 (11:01→12:47)
[2021-09-18] MEDS: PANTOPRAZOLE 40 MG/10 ML VIAL INJ IV SCH (11:01)
[2021-09-18] MEDS: MIDAZOLAM DRIP 50 mg/50mL 50 ML IV SCH (11:30)
[2021-09-18] MEDS: PROPOFOL 100 ML IV SCH (14:45)
[2021-09-18] MEDS ORDERED: FUROSEMIDE 20 MG/2 ML VIAL IV ONE (18:30)
[2021-09-18] MEDS: ATORVASTATIN 20 MG TAB PO SCH (21:07)
[2021-09-19] VITALS (25 sets, daily range): BP systolic 94–152; BP diastolic 49–102
[2021-09-19] MEDS: InsuLIN REG 1unit/0.01ml Soln (100units/ml) SC SCH ×3 (06:00→18:00)
[2021-09-19 06:01] LABS: Basophils # (auto) 0 10 ^3/uL (0-0.2); Basophils % (auto) 0.3 % (0.0-2.0); Eosinophils # (auto) 0 10 ^3/uL (0-0.8); Hematocrit 36.2 % (36.0-46.0); Hemoglobin 12.4 g/dL (12.2-16.2); Lymphocytes % (auto) 9.7 % (10.0-50.0); Mean Corpuscular Hemoglobin 29.8 pg (28.0-32.0); Mean Corpuscular Hgb Conc. 34.2 g/dL (32.0-36.0); Mean Corpuscular Volume 87.1 fL (80.0-100.0); Monocytes # (auto) 0.9 10 ^3/uL (0-1.3); Monocytes % (auto) 8.2 % (0.0-12.0); Neutrophils # (auto) 8.8 10 ^3/uL (1.6-8.6); Neutrophils % (auto) 81.8 % (37.0-80.0); Nucleated Red Blood Cells % 0.1 %; Red Blood Cells 4.16 10^6/uL (4.0-5.20); Red Cell Distribution Width 14.8 % (11.8-14.3); White Blood Cell 10.8 10^3/uL (4.4-10.8)
[2021-09-19] MEDS: CEFEPIME 1 GM in SODIUM CHL 0.9% 50 ML IV SCH ×3 (06:08→21:28)
[2021-09-19] MEDS: ACCU-CHEK COMFORT CURVE STRIP VI SCH ×3 (06:08→18:17)
[2021-09-19 06:17] LABS: INR 1.16 (0.9-1.15); Partial Thromboplastin Time 22.5 sec (23.6-33.0)
[2021-09-19] MEDS: SUCRALFATE 1 GM/10 ML ORAL SUSP PO SCH ×3 (06:20→21:28)
[2021-09-19 06:24] LABS: Calcium 8.6 mg/dL (8.5-10.1); Potassium 3.5 mmol/L (3.5-5.1)
[2021-09-19 06:26] LABS: BUN/Creatinine Ratio 24.6
[2021-09-19] MEDS: SODIUM CHLORIDE 0.9% 1,000 ML IV SCH ×3 (07:45→23:45)
[2021-09-19] MEDS ORDERED: LORazepam 2MG/ML-1ML VIAL IV ONE (08:30)
[2021-09-19] MEDS: POTASSIUM CHL 20MEQ/100ML 100 ML IV SCH ×2 (09:51→18:16)
[2021-09-19] MEDS: VANCOMYCIN 1GM/250ML 250 ML IV SCH (09:52)
[2021-09-19] MEDS: PANTOPRAZOLE 40 MG/10 ML VIAL INJ IV SCH (09:53)
[2021-09-19] MEDS: ASPirin 81 mg TAB PO SCH (09:54)
[2021-09-19] MEDS: LEVOTHYROXINE SODIUM 100 MCG/5 ML INJ IV SCH (09:54)
[2021-09-19] MEDS: APIXABAN 2.5 MG TAB PO SCH ×2 (09:55→21:29)
[2021-09-19] MEDS: THIAMINE HCL 100 MG TAB PO SCH (09:55)
[2021-09-19] MEDS: AMIODARONE HCL 200 MG TAB PO SCH (09:55)
[2021-09-19] MEDS: FOLIC ACID 1 MG TAB PO SCH (09:55)
[2021-09-19] MEDS: CYANOCOBALAMIN 500 MCG TAB PO SCH (09:56)
[2021-09-19] MEDS: CHOLECALCIFEROL (VITD3) 2,000 UNIT CAP/TAB PO SCH (09:56)
[2021-09-19] MEDS: methylPREDNISolone SOD SUCC 40 MG/ML VL IV SCH ×2 (10:00→21:28)
[2021-09-19] MEDS ORDERED: FUROSEMIDE 20 MG/2 ML VIAL IV SCH (10:00)
[2021-09-19] MEDS: MORPHINE SULFATE INJECTION 2 MG/ML SYRG IV PRN (13:15)
[2021-09-19] MEDS: hydrALAZINE HCL 20 MG/ML VL IV PRN (13:45)
[2021-09-19] MEDS ORDERED: LIDOCAINE 2%HCL (LOCAL ANESTH.) INJ 10ml MDV ONE (14:11)
[2021-09-19] MEDS: LORazepam 2MG/ML-1ML VIAL IV PRN (15:25)
[2021-09-19 17:03] LABS: Protein, CSF 76.4 mg/dL (15-45)
[2021-09-19 17:05] LABS: CSF White Blood Cells 2 CUMM (0-5)
[2021-09-19] MEDS ORDERED: MORPHINE SULFATE INJECTION 2 MG/ML SYRG IV PRN (19:30)
[2021-09-19] MEDS: ATORVASTATIN 20 MG TAB PO SCH (21:29)
[2021-09-20] VITALS (42 sets, daily range): BP systolic 92–174; BP diastolic 46–90
[2021-09-20 04:22] LABS: BUN/Creatinine Ratio 27.5; Calcium 7.9 mg/dL (8.5-10.1); Potassium 3.1 mmol/L (3.5-5.1)
[2021-09-20] MEDS: MORPHINE SULFATE INJECTION 2 MG/ML SYRG IV PRN ×2 (05:30→20:36)
[2021-09-20] MEDS: InsuLIN REG 1unit/0.01ml Soln (100units/ml) SC SCH ×3 (05:54→12:00)
[2021-09-20] MEDS: SUCRALFATE 1 GM/10 ML ORAL SUSP PO SCH ×3 (05:54→22:39)
[2021-09-20] MEDS: ACCU-CHEK COMFORT CURVE STRIP VI SCH ×4 (05:54→17:35)
[2021-09-20] MEDS: CEFEPIME 1 GM in SODIUM CHL 0.9% 50 ML IV SCH (05:54)
[2021-09-20] MEDS: SODIUM CHLORIDE 0.9% 1,000 ML IV SCH ×3 (07:45→23:45)
[2021-09-20] MEDS: APIXABAN 2.5 MG TAB PO SCH ×2 (10:00→21:34)
[2021-09-20] MEDS: AMIODARONE HCL 200 MG TAB PO SCH (10:00)
[2021-09-20] MEDS: LEVOTHYROXINE SODIUM 100 MCG/5 ML INJ IV SCH (10:39)
[2021-09-20] MEDS: PANTOPRAZOLE 40 MG/10 ML VIAL INJ IV SCH (10:39)
[2021-09-20] MEDS: ASPirin 81 mg TAB PO SCH (10:40)
[2021-09-20] MEDS: FOLIC ACID 1 MG TAB PO SCH (10:40)
[2021-09-20] MEDS: THIAMINE HCL 100 MG TAB PO SCH (10:40)
[2021-09-20] MEDS: CYANOCOBALAMIN 500 MCG TAB PO SCH (10:40)
[2021-09-20] MEDS: CHOLECALCIFEROL (VITD3) 2,000 UNIT CAP/TAB PO SCH (10:41)
[2021-09-20] MEDS ORDERED: methylPREDNISolone SOD SUCC 40 MG/ML VL ONE (10:42)
[2021-09-20] MEDS: methylPREDNISolone SOD SUCC 40 MG/ML VL IV SCH ×3 (11:07→21:32)
[2021-09-20] MEDS: ATORVASTATIN 20 MG TAB PO SCH (21:33)
[2021-09-20] MEDS: hydrALAZINE HCL 20 MG/ML VL IV PRN (21:36)
[2021-09-20 22:02] LABS: Cholesterol 128 mg/dL (< 200)
[2021-09-20 22:05] LABS: HDL Cholesterol 52 mg/dL (40-59); LDL Cholesterol 61 mg/dL (< 100); Triglycerides 65 mg/dL (< 150)
[2021-09-21] VITALS (31 sets, daily range): BP systolic 90–159; BP diastolic 47–86
[2021-09-21] MEDS: ACCU-CHEK COMFORT CURVE STRIP VI SCH ×4 (00:16→18:12)
[2021-09-21] MEDS ORDERED: LORazepam 2MG/ML-1ML VIAL ONE (03:53)
[2021-09-21 05:16] LABS: BUN/Creatinine Ratio 27.6
[2021-09-21 05:24] LABS: Potassium 2.9 mmol/L (3.5-5.1)
[2021-09-21] MEDS: InsuLIN REG 1unit/0.01ml Soln (100units/ml) SC SCH ×4 (05:33→18:00)
[2021-09-21] MEDS: methylPREDNISolone SOD SUCC 40 MG/ML VL IV SCH ×3 (05:33→21:40)
[2021-09-21] MEDS: SUCRALFATE 1 GM/10 ML ORAL SUSP PO SCH ×4 (08:17→21:40)
[2021-09-21] MEDS: MORPHINE SULFATE INJECTION 2 MG/ML SYRG IV PRN (09:48)
[2021-09-21] MEDS: THIAMINE HCL 100 MG TAB PO SCH (10:11)
[2021-09-21] MEDS: CHOLECALCIFEROL (VITD3) 2,000 UNIT CAP/TAB PO SCH (10:11)
[2021-09-21] MEDS: CYANOCOBALAMIN 500 MCG TAB PO SCH (10:12)
[2021-09-21] MEDS: ASPirin 81 mg TAB PO SCH (10:12)
[2021-09-21] MEDS: AMIODARONE HCL 200 MG TAB PO SCH (10:12)
[2021-09-21] MEDS: APIXABAN 2.5 MG TAB PO SCH ×2 (10:12→21:40)
[2021-09-21] MEDS: FOLIC ACID 1 MG TAB PO SCH (10:12)
[2021-09-21] MEDS: PANTOPRAZOLE 40 MG/10 ML VIAL INJ IV SCH (10:13)
[2021-09-21] MEDS: LEVOTHYROXINE SODIUM 100 MCG/5 ML INJ IV SCH (10:13)
[2021-09-21] MEDS ORDERED: POTASSIUM EFFERVESENT TAB 25 MEQ GT ONE (12:30)
[2021-09-21] MEDS: POTASSIUM CHL 20MEQ/100ML 100 ML IV SCH ×2 (13:14→15:11)
[2021-09-21] MEDS ORDERED: Glucerna 1.2 Cal 1Liter BOTTLE GT SCH (14:45)
[2021-09-21] MEDS ORDERED: LORazepam 2MG/ML-1ML VIAL IV PRN (15:15)
[2021-09-21] MEDS: SODIUM CHLORIDE 0.9% 1,000 ML IV SCH ×3 (15:45→23:45)
[2021-09-21 19:13] LABS: BUN/Creatinine Ratio 26.5; Calcium 8.3 mg/dL (8.5-10.1); Potassium 4.3 mmol/L (3.5-5.1)
[2021-09-21] MEDS: ATORVASTATIN 20 MG TAB PO SCH (21:41)
[2021-09-21] MEDS: LORazepam 2MG/ML-1ML VIAL IV PRN (22:57)
[2021-09-22] VITALS (25 sets, daily range): BP systolic 89–153; BP diastolic 42–81
[2021-09-22] MEDS: ACCU-CHEK COMFORT CURVE STRIP VI SCH ×5 (00:24→23:54)
[2021-09-22 05:58] LABS: Basophils # (auto) 0 10 ^3/uL (0-0.2); Basophils % (auto) 0.2 % (0.0-2.0); Eosinophils # (auto) 0 10 ^3/uL (0-0.8); Hematocrit 32.1 % (36.0-46.0); Hemoglobin 10.8 g/dL (12.2-16.2); Lymphocytes # (auto) 0.7 10 ^3/uL (0.4-5.4); Lymphocytes % (auto) 7.9 % (10.0-50.0); Mean Corpuscular Hemoglobin 29.6 pg (28.0-32.0); Mean Corpuscular Hgb Conc. 33.8 g/dL (32.0-36.0); Mean Corpuscular Volume 87.8 fL (80.0-100.0); Monocytes # (auto) 0.2 10 ^3/uL (0-1.3); Monocytes % (auto) 2.7 % (0.0-12.0); Neutrophils # (auto) 7.9 10 ^3/uL (1.6-8.6); Neutrophils % (auto) 89.2 % (37.0-80.0); Nucleated Red Blood Cells % 0.1 %; Red Blood Cells 3.65 10^6/uL (4.0-5.20); Red Cell Distribution Width 15.2 % (11.8-14.3); White Blood Cell 8.9 10^3/uL (4.4-10.8)
[2021-09-22] MEDS: InsuLIN REG 1unit/0.01ml Soln (100units/ml) SC SCH ×5 (06:00→23:54)
[2021-09-22] MEDS: methylPREDNISolone SOD SUCC 40 MG/ML VL IV SCH ×3 (06:15→21:33)
[2021-09-22 06:32] LABS: BUN/Creatinine Ratio 34.6; Calcium 7.7 mg/dL (8.5-10.1); Potassium 3.8 mmol/L (3.5-5.1)
[2021-09-22] MEDS: SODIUM CHLORIDE 0.9% 1,000 ML IV SCH ×3 (06:55→23:54)
[2021-09-22] MEDS: SUCRALFATE 1 GM/10 ML ORAL SUSP PO SCH ×4 (07:39→21:34)
[2021-09-22] MEDS: THIAMINE HCL 100 MG TAB PO SCH (09:37)
[2021-09-22] MEDS: ASPirin 81 mg TAB PO SCH (09:37)
[2021-09-22] MEDS: AMIODARONE HCL 200 MG TAB PO SCH (09:37)
[2021-09-22] MEDS: APIXABAN 2.5 MG TAB PO SCH ×2 (09:37→21:34)
[2021-09-22] MEDS: PANTOPRAZOLE 40 MG/10 ML VIAL INJ IV SCH (09:37)
[2021-09-22] MEDS: CHOLECALCIFEROL (VITD3) 2,000 UNIT CAP/TAB PO SCH (09:37)
[2021-09-22] MEDS: LEVOTHYROXINE SODIUM 100 MCG/5 ML INJ IV SCH (09:37)
[2021-09-22] MEDS: CYANOCOBALAMIN 500 MCG TAB PO SCH (09:38)
[2021-09-22] MEDS: FOLIC ACID 1 MG TAB PO SCH (09:38)
[2021-09-22] MEDS: LORazepam 2MG/ML-1ML VIAL IV PRN (17:09)
[2021-09-22] MEDS: ATORVASTATIN 20 MG TAB PO SCH (21:34)
[2021-09-23] VITALS (19 sets, daily range): BP systolic 95–150; BP diastolic 45–65
[2021-09-23] MEDS: LORazepam 2MG/ML-1ML VIAL IV PRN (03:33)
[2021-09-23 03:39] LABS: Basophils # (auto) 0 10 ^3/uL (0-0.2); Basophils % (auto) 0.1 % (0.0-2.0); Eosinophils # (auto) 0 10 ^3/uL (0-0.8); Hematocrit 33.9 % (36.0-46.0); Hemoglobin 11.2 g/dL (12.2-16.2); Lymphocytes # (auto) 0.6 10 ^3/uL (0.4-5.4); Lymphocytes % (auto) 5.6 % (10.0-50.0); Mean Corpuscular Hemoglobin 29.1 pg (28.0-32.0); Mean Corpuscular Volume 88.2 fL (80.0-100.0); Monocytes # (auto) 0.4 10 ^3/uL (0-1.3); Monocytes % (auto) 3.1 % (0.0-12.0); Neutrophils # (auto) 10.5 10 ^3/uL (1.6-8.6); Neutrophils % (auto) 91.2 % (37.0-80.0); Red Blood Cells 3.84 10^6/uL (4.0-5.20); Red Cell Distribution Width 15.6 % (11.8-14.3); White Blood Cell 11.5 10^3/uL (4.4-10.8)
[2021-09-23 03:53] LABS: BUN/Creatinine Ratio 33.3; Calcium 7.8 mg/dL (8.5-10.1); Potassium 3.9 mmol/L (3.5-5.1)
[2021-09-23] MEDS: methylPREDNISolone SOD SUCC 40 MG/ML VL IV SCH ×3 (05:26→22:43)
[2021-09-23] MEDS: ACCU-CHEK COMFORT CURVE STRIP VI SCH ×3 (05:26→17:23)
[2021-09-23] MEDS: InsuLIN REG 1unit/0.01ml Soln (100units/ml) SC SCH ×3 (05:27→17:23)
[2021-09-23] MEDS: SUCRALFATE 1 GM/10 ML ORAL SUSP PO SCH ×4 (06:14→22:43)
[2021-09-23] MEDS: PANTOPRAZOLE 40 MG/10 ML VIAL INJ IV SCH (09:42)
[2021-09-23] MEDS: CYANOCOBALAMIN 500 MCG TAB PO SCH (09:42)
[2021-09-23] MEDS: ASPirin 81 mg TAB PO SCH (09:42)
[2021-09-23] MEDS: CHOLECALCIFEROL (VITD3) 2,000 UNIT CAP/TAB PO SCH (09:43)
[2021-09-23] MEDS: FOLIC ACID 1 MG TAB PO SCH (09:43)
[2021-09-23] MEDS: AMIODARONE HCL 200 MG TAB PO SCH (09:43)
[2021-09-23] MEDS: THIAMINE HCL 100 MG TAB PO SCH (09:43)
[2021-09-23] MEDS: LEVOTHYROXINE SODIUM 100 MCG/5 ML INJ IV SCH (09:44)
[2021-09-23] MEDS: APIXABAN 2.5 MG TAB PO SCH ×2 (09:44→22:43)
[2021-09-23] MEDS: SODIUM CHLORIDE 0.9% 1,000 ML IV SCH (14:11)
[2021-09-23] MEDS: ATORVASTATIN 20 MG TAB PO SCH (22:43)
[2021-09-24] MEDS: InsuLIN REG 1unit/0.01ml Soln (100units/ml) SC SCH ×4 (00:35→17:45)
[2021-09-24 05:00] VITALS: BP 141/79
[2021-09-24] MEDS: SODIUM CHLORIDE 0.9% 1,000 ML IV SCH (05:13)
[2021-09-24] MEDS: methylPREDNISolone SOD SUCC 40 MG/ML VL IV SCH ×2 (05:22→17:35)
[2021-09-24 05:36] LABS: Basophils # (auto) 0 10 ^3/uL (0-0.2); Basophils % (auto) 0.2 % (0.0-2.0); Eosinophils # (auto) 0 10 ^3/uL (0-0.8); Hematocrit 35.9 % (36.0-46.0); Hemoglobin 12.1 g/dL (12.2-16.2); Lymphocytes # (auto) 0.5 10 ^3/uL (0.4-5.4); Lymphocytes % (auto) 4.4 % (10.0-50.0); Mean Corpuscular Hemoglobin 29.6 pg (28.0-32.0); Mean Corpuscular Hgb Conc. 33.6 g/dL (32.0-36.0); Mean Corpuscular Volume 88.1 fL (80.0-100.0); Monocytes # (auto) 0.4 10 ^3/uL (0-1.3); Monocytes % (auto) 3.1 % (0.0-12.0); Neutrophils % (auto) 92.3 % (37.0-80.0); Red Blood Cells 4.07 10^6/uL (4.0-5.20); Red Cell Distribution Width 15.4 % (11.8-14.3); White Blood Cell 11.9 10^3/uL (4.4-10.8)
[2021-09-24] MEDS: ACCU-CHEK COMFORT CURVE STRIP VI SCH ×4 (05:43→17:30)
[2021-09-24 06:01] LABS: Potassium 3.9 mmol/L (3.5-5.1)
[2021-09-24] MEDS: SUCRALFATE 1 GM/10 ML ORAL SUSP PO SCH ×4 (06:07→22:00)
[2021-09-24 06:11] LABS: BUN/Creatinine Ratio 32.8; Calcium 8.1 mg/dL (8.5-10.1)
[2021-09-24 09:09] VITALS: BP 152/74
[2021-09-24] MEDS: APIXABAN 2.5 MG TAB PO SCH (10:00)
[2021-09-24] MEDS: CHOLECALCIFEROL (VITD3) 2,000 UNIT CAP/TAB PO SCH (10:10)
[2021-09-24] MEDS: CYANOCOBALAMIN 500 MCG TAB PO SCH (10:10)
[2021-09-24] MEDS: THIAMINE HCL 100 MG TAB PO SCH (10:10)
[2021-09-24] MEDS: FOLIC ACID 1 MG TAB PO SCH (10:11)
[2021-09-24] MEDS: AMIODARONE HCL 200 MG TAB PO SCH (10:11)
[2021-09-24] MEDS: PANTOPRAZOLE 40 MG/10 ML VIAL INJ IV SCH (10:11)
[2021-09-24] MEDS: LEVOTHYROXINE SODIUM 100 MCG/5 ML INJ IV SCH (10:11)
[2021-09-24] MEDS ORDERED: FUROSEMIDE 20 MG/2 ML VIAL IV ONE (12:15)
[2021-09-24] MEDS ORDERED: POTASSIUM CHL 20MEQ/100ML 100 ML IV PRN (12:15)
[2021-09-24 13:00] VITALS: BP 120/63
[2021-09-24 14:52] VITALS: BP 120/63
[2021-09-24 17:10] VITALS: BP 118/73
[2021-09-24 22:00] VITALS: BP 155/73
[2021-09-24] MEDS: ATORVASTATIN 20 MG TAB PO SCH (22:00)
[2021-09-25] MEDS: ACCU-CHEK COMFORT CURVE STRIP VI SCH ×4 (00:55→18:00)
[2021-09-25] MEDS: InsuLIN REG 1unit/0.01ml Soln (100units/ml) SC SCH ×4 (00:56→18:09)
[2021-09-25 05:00] VITALS: BP 131/59
[2021-09-25] MEDS: methylPREDNISolone SOD SUCC 40 MG/ML VL IV SCH ×2 (06:11→18:08)
[2021-09-25] MEDS: SUCRALFATE 1 GM/10 ML ORAL SUSP PO SCH ×4 (06:12→22:00)
[2021-09-25] MEDS: LORazepam 2MG/ML-1ML VIAL IV PRN ×2 (07:12→23:25)
[2021-09-25 09:00] VITALS: BP 127/72
[2021-09-25] MEDS: PANTOPRAZOLE 40 MG/10 ML VIAL INJ IV SCH (09:11)
[2021-09-25] MEDS: FUROSEMIDE 20 MG/2 ML VIAL IV SCH (09:11)
[2021-09-25] MEDS: LEVOTHYROXINE SODIUM 100 MCG/5 ML INJ IV SCH (09:11)
[2021-09-25] MEDS: CHOLECALCIFEROL (VITD3) 2,000 UNIT CAP/TAB PO SCH (09:11)
[2021-09-25] MEDS: THIAMINE HCL 100 MG TAB PO SCH (09:12)
[2021-09-25] MEDS: AMIODARONE HCL 200 MG TAB PO SCH (09:12)
[2021-09-25] MEDS: CYANOCOBALAMIN 500 MCG TAB PO SCH (09:12)
[2021-09-25] MEDS: FOLIC ACID 1 MG TAB PO SCH (09:12)
[2021-09-25 13:00] VITALS: BP 95/64
[2021-09-25 17:00] VITALS: BP 95/51
[2021-09-25 22:00] VITALS: BP 101/52
[2021-09-25] MEDS: ATORVASTATIN 20 MG TAB PO SCH (22:00)
[2021-09-26] MEDS: ACCU-CHEK COMFORT CURVE STRIP VI SCH ×4 (00:26→18:00)
[2021-09-26 05:30] VITALS: BP 127/70
[2021-09-26] MEDS: InsuLIN REG 1unit/0.01ml Soln (100units/ml) SC SCH ×4 (06:00→18:00)
[2021-09-26 06:23] LABS: Basophils # (auto) 0 10 ^3/uL (0-0.2); Basophils % (auto) 0.1 % (0.0-2.0); Eosinophils # (auto) 0 10 ^3/uL (0-0.8); Hematocrit 36.9 % (36.0-46.0); Hemoglobin 12.6 g/dL (12.2-16.2); Lymphocytes # (auto) 1.1 10 ^3/uL (0.4-5.4); Lymphocytes % (auto) 9.1 % (10.0-50.0); Mean Corpuscular Hgb Conc. 34.3 g/dL (32.0-36.0); Mean Corpuscular Volume 87.6 fL (80.0-100.0); Monocytes # (auto) 0.7 10 ^3/uL (0-1.3); Neutrophils # (auto) 10.4 10 ^3/uL (1.6-8.6); Neutrophils % (auto) 84.8 % (37.0-80.0); Nucleated Red Blood Cells % 0.1 %; Red Blood Cells 4.21 10^6/uL (4.0-5.20); Red Cell Distribution Width 15.3 % (11.8-14.3); White Blood Cell 12.3 10^3/uL (4.4-10.8)
[2021-09-26] MEDS: methylPREDNISolone SOD SUCC 40 MG/ML VL IV SCH ×2 (06:23→18:42)
[2021-09-26] MEDS: SUCRALFATE 1 GM/10 ML ORAL SUSP PO SCH ×4 (06:24→22:00)
[2021-09-26 06:39] LABS: Potassium 3.4 mmol/L (3.5-5.1)
[2021-09-26 06:47] LABS: BUN/Creatinine Ratio 30.5; Calcium 8.2 mg/dL (8.5-10.1)
[2021-09-26 08:00] VITALS: BP 124/72
[2021-09-26] MEDS: LEVOTHYROXINE SODIUM 100 MCG/5 ML INJ IV SCH (09:07)
[2021-09-26] MEDS: PANTOPRAZOLE 40 MG/10 ML VIAL INJ IV SCH (09:08)
[2021-09-26] MEDS: FUROSEMIDE 20 MG/2 ML VIAL IV SCH (09:09)
[2021-09-26] MEDS: THIAMINE HCL 100 MG TAB PO SCH (10:00)
[2021-09-26] MEDS: CYANOCOBALAMIN 500 MCG TAB PO SCH (10:00)
[2021-09-26] MEDS: FOLIC ACID 1 MG TAB PO SCH (10:00)
[2021-09-26] MEDS: AMIODARONE HCL 200 MG TAB PO SCH (10:00)
[2021-09-26] MEDS: CHOLECALCIFEROL (VITD3) 2,000 UNIT CAP/TAB PO SCH (10:00)
[2021-09-26 13:00] VITALS: BP 102/60
[2021-09-26 17:04] VITALS: BP 102/61
[2021-09-26] MEDS ORDERED: CLINIMIX PER PHARMACY 0 ML IV SCH (18:15)
[2021-09-26] MEDS: AMINO ACID INFUSION IN D10W 1,000 ML IV SCH (20:09)
[2021-09-26 22:00] VITALS: BP 128/70
[2021-09-26] MEDS: ATORVASTATIN 20 MG TAB PO SCH (22:00)
[2021-09-26 23:56] VITALS: BP 128/70
[2021-09-27] MEDS: ACCU-CHEK COMFORT CURVE STRIP VI SCH ×4 (00:24→17:51)
[2021-09-27] MEDS: InsuLIN REG 1unit/0.01ml Soln (100units/ml) SC SCH ×4 (00:25→18:03)
[2021-09-27] MEDS: LORazepam 2MG/ML-1ML VIAL IV PRN (03:40)
[2021-09-27 05:00] VITALS: BP 132/65
[2021-09-27] MEDS: methylPREDNISolone SOD SUCC 40 MG/ML VL IV SCH ×2 (06:03→17:51)
[2021-09-27] MEDS: SUCRALFATE 1 GM/10 ML ORAL SUSP PO SCH ×4 (06:26→22:00)
[2021-09-27 07:33] LABS: Albumin 2.4 g/dL (3.4-5.0); BUN/Creatinine Ratio 29.7; Calcium 8.1 mg/dL (8.5-10.1); Magnesium 2.2 mg/dL (1.6-2.6); Phosphorus 2.8 mg/dL (2.5-4.90)
[2021-09-27] MEDS: FOLIC ACID 1 MG TAB PO SCH (08:02)
[2021-09-27] MEDS: AMIODARONE HCL 200 MG TAB PO SCH (08:03)
[2021-09-27] MEDS: THIAMINE HCL 100 MG TAB PO SCH (08:03)
[2021-09-27] MEDS: CYANOCOBALAMIN 500 MCG TAB PO SCH (08:03)
[2021-09-27] MEDS: CHOLECALCIFEROL (VITD3) 2,000 UNIT CAP/TAB PO SCH (08:03)
[2021-09-27 09:00] VITALS: BP_SYST 113; BP_DIAS 65; BP_DIAS 68
[2021-09-27] MEDS: FUROSEMIDE 20 MG/2 ML VIAL IV SCH (11:05)
[2021-09-27] MEDS: POTASSIUM CHL 20MEQ/100ML 100 ML IV SCH ×2 (11:06→14:10)
[2021-09-27] MEDS: PANTOPRAZOLE 40 MG/10 ML VIAL INJ IV SCH (11:07)
[2021-09-27] MEDS: LEVOTHYROXINE SODIUM 100 MCG/5 ML INJ IV SCH (11:11)
[2021-09-27 13:00] VITALS: BP 105/54
[2021-09-27 17:00] VITALS: BP 89/51
[2021-09-27 21:01] VITALS: BP 96/55
[2021-09-27] MEDS: ATORVASTATIN 20 MG TAB PO SCH (22:00)
[2021-09-27] MEDS: AMINO ACID INFUSION IN D10W 1,000 ML IV SCH (22:56)
[2021-09-27] MEDS: LEVETIRACETAM IV SCH (22:56)
[2021-09-27] MEDS: SODIUM CHL 0.9% IV SCH (22:56)
[2021-09-28 05:08] VITALS: BP 105/61
[2021-09-28 05:32] LABS: Basophils # (auto) 0 10 ^3/uL (0-0.2); Basophils % (auto) 0.3 % (0.0-2.0); Eosinophils # (auto) 0 10 ^3/uL (0-0.8); Eosinophils % (auto) 0.1 % (0.0-7.0); Hematocrit 34.3 % (36.0-46.0); Hemoglobin 11.9 g/dL (12.2-16.2); Lymphocytes # (auto) 0.9 10 ^3/uL (0.4-5.4); Lymphocytes % (auto) 7.7 % (10.0-50.0); Mean Corpuscular Hemoglobin 30.5 pg (28.0-32.0); Mean Corpuscular Hgb Conc. 34.9 g/dL (32.0-36.0); Mean Corpuscular Volume 87.4 fL (80.0-100.0); Monocytes # (auto) 0.6 10 ^3/uL (0-1.3); Neutrophils # (auto) 10.2 10 ^3/uL (1.6-8.6); Neutrophils % (auto) 86.9 % (37.0-80.0); Nucleated Red Blood Cells % 0.1 %; Red Blood Cells 3.92 10^6/uL (4.0-5.20); Red Cell Distribution Width 15.6 % (11.8-14.3); White Blood Cell 11.7 10^3/uL (4.4-10.8)
[2021-09-28 05:50] LABS: Potassium 3.6 mmol/L (3.5-5.1)
[2021-09-28 05:53] LABS: INR 1.16 (0.9-1.15)
[2021-09-28 06:32] LABS: Albumin 2.3 g/dL (3.4-5.0); BUN/Creatinine Ratio 34.9; Bilirubin, Total 0.8 mg/dL (0.2-1.0); Calcium 7.7 mg/dL (8.5-10.1); Magnesium 2.2 mg/dL (1.6-2.6); Phosphorus 2.8 mg/dL (2.5-4.90); Total Protein 5.1 g/dL (6.4-8.2)
[2021-09-28] MEDS: methylPREDNISolone SOD SUCC 40 MG/ML VL IV SCH (06:45)
[2021-09-28] MEDS: ACCU-CHEK COMFORT CURVE STRIP VI SCH ×5 (06:45→23:27)
[2021-09-28] MEDS: SUCRALFATE 1 GM/10 ML ORAL SUSP PO SCH ×4 (06:46→21:05)
[2021-09-28] MEDS: InsuLIN REG 1unit/0.01ml Soln (100units/ml) SC SCH ×5 (06:46→23:27)
[2021-09-28] MEDS: FOLIC ACID 1 MG TAB PO SCH (07:16)
[2021-09-28] MEDS: THIAMINE HCL 100 MG TAB PO SCH (07:16)
[2021-09-28] MEDS: AMIODARONE HCL 200 MG TAB PO SCH (07:16)
[2021-09-28] MEDS: CYANOCOBALAMIN 500 MCG TAB PO SCH (07:17)
[2021-09-28] MEDS: CHOLECALCIFEROL (VITD3) 2,000 UNIT CAP/TAB PO SCH (07:17)
[2021-09-28 08:31] VITALS: BP 122/64
[2021-09-28] MEDS: LEVOTHYROXINE SODIUM 100 MCG/5 ML INJ IV SCH (10:31)
[2021-09-28] MEDS: PANTOPRAZOLE 40 MG/10 ML VIAL INJ IV SCH (10:31)
[2021-09-28] MEDS: SODIUM CHL 0.9% IV SCH ×2 (10:31→21:02)
[2021-09-28] MEDS: LEVETIRACETAM IV SCH ×2 (10:31→21:02)
[2021-09-28] MEDS: FUROSEMIDE 20 MG/2 ML VIAL IV SCH (10:32)
[2021-09-28 12:49] VITALS: BP 116/59
[2021-09-28 17:26] VITALS: BP 118/62
[2021-09-28] MEDS: AMINO ACID INFUSION IN D10W 1,000 ML IV SCH (21:04)
[2021-09-28] MEDS: ATORVASTATIN 20 MG TAB PO SCH (21:05)
[2021-09-28 22:00] VITALS: BP 130/64
[2021-09-29 05:00] VITALS: BP 126/72
[2021-09-29 05:15] LABS: Basophils # (auto) 0 10 ^3/uL (0-0.2); Basophils % (auto) 0.2 % (0.0-2.0); Eosinophils # (auto) 0 10 ^3/uL (0-0.8); Eosinophils % (auto) 0.2 % (0.0-7.0); Hematocrit 38.5 % (36.0-46.0); Hemoglobin 13.1 g/dL (12.2-16.2); Lymphocytes # (auto) 2.5 10 ^3/uL (0.4-5.4); Mean Corpuscular Hemoglobin 29.5 pg (28.0-32.0); Mean Corpuscular Hgb Conc. 34.1 g/dL (32.0-36.0); Mean Corpuscular Volume 86.5 fL (80.0-100.0); Monocytes # (auto) 0.8 10 ^3/uL (0-1.3); Monocytes % (auto) 4.1 % (0.0-12.0); Neutrophils # (auto) 16.2 10 ^3/uL (1.6-8.6); Neutrophils % (auto) 82.5 % (37.0-80.0); Red Blood Cells 4.45 10^6/uL (4.0-5.20); Red Cell Distribution Width 15.6 % (11.8-14.3); White Blood Cell 19.6 10^3/uL (4.4-10.8)
[2021-09-29 05:22] LABS: INR 1.16 (0.9-1.15); Partial Thromboplastin Time 22.8 sec (23.6-33.0)
[2021-09-29 05:30] LABS: Albumin 2.6 g/dL (3.4-5.0); Calcium 8.3 mg/dL (8.5-10.1)
[2021-09-29 05:37] LABS: BUN/Creatinine Ratio 39.1; Phosphorus 1.6 mg/dL (2.5-4.90)
[2021-09-29 06:00] LABS: Potassium 2.9 mmol/L (3.5-5.1)
[2021-09-29] MEDS: InsuLIN REG 1unit/0.01ml Soln (100units/ml) SC SCH ×3 (06:00→18:27)
[2021-09-29] MEDS: SUCRALFATE 1 GM/10 ML ORAL SUSP PO SCH ×4 (06:08→21:42)
[2021-09-29] MEDS: ACCU-CHEK COMFORT CURVE STRIP VI SCH ×3 (06:09→18:00)
[2021-09-29] MEDS: POTASSIUM CHL 20MEQ/100ML 100 ML IV SCH ×3 (06:35→10:16)
[2021-09-29] MEDS ORDERED: SODIUM PHOSPHATES 24 MEQ in SODIUM CHL 0.9% 100 ML IV ONE (08:15)
[2021-09-29 08:56] VITALS: BP 94/51
[2021-09-29] MEDS: CHOLECALCIFEROL (VITD3) 2,000 UNIT CAP/TAB PO SCH (10:00)
[2021-09-29] MEDS: FUROSEMIDE 20 MG/2 ML VIAL IV SCH (10:00)
[2021-09-29] MEDS: CYANOCOBALAMIN 500 MCG TAB PO SCH (10:00)
[2021-09-29] MEDS: FOLIC ACID 1 MG TAB PO SCH (10:00)
[2021-09-29] MEDS: THIAMINE HCL 100 MG TAB PO SCH (10:00)
[2021-09-29] MEDS: AMIODARONE HCL 200 MG TAB PO SCH (10:00)
[2021-09-29] MEDS: methylPREDNISolone SOD SUCC 40 MG/ML VL IV SCH (10:04)
[2021-09-29] MEDS: PANTOPRAZOLE 40 MG/10 ML VIAL INJ IV SCH (10:04)
[2021-09-29] MEDS: LEVOTHYROXINE SODIUM 100 MCG/5 ML INJ IV SCH (10:04)
[2021-09-29] MEDS: LEVETIRACETAM IV SCH ×2 (11:20→21:43)
[2021-09-29] MEDS: SODIUM CHL 0.9% IV SCH ×2 (11:20→21:43)
[2021-09-29] MEDS ORDERED: POTASSIUM CHL 20MEQ/100ML 100 ML IV ONE (12:00)
[2021-09-29 12:37] VITALS: BP 96/62
[2021-09-29] MEDS ORDERED: CLINDAMYCIN 600MG IV 50 ML IV ONE (14:16)
[2021-09-29] MEDS ORDERED: fentaNYL CITRATE 100 MCG/2 ML VL ONE (14:20)
[2021-09-29] MEDS ORDERED: MIDAZOLAM HCL 2MG/2ML 2ml VIAL (1mg/ml) ONE (14:20)
[2021-09-29] MEDS ORDERED: PROPOFOL 10 MG/ML 20 ML IV ONE (14:43)
[2021-09-29] MEDS ORDERED: ONDANSETRON HCL 4 MG/2 ML VIAL ONE (14:43)
[2021-09-29] MEDS ORDERED: ePHEDrine SULFATE 50 MG/ML AMP IV ONE ×2 (14:45→14:50)
[2021-09-29] MEDS ORDERED: ePHEDrine SULFATE 50 MG/ML AMP ONE (14:48)
[2021-09-29] MEDS: ePHEDrine SULFATE 50 MG/ML AMP IV PRN ×4 (15:00→15:50)
[2021-09-29] MEDS ORDERED: ONDANSETRON HCL 4 MG/2 ML VIAL IV PRN (15:15)
[2021-09-29 17:26] VITALS: BP 76/49
[2021-09-29] MEDS: AMINO ACID INFUSION IN D10W 1,000 ML IV SCH (20:45)
[2021-09-29] MEDS: ATORVASTATIN 20 MG TAB PO SCH (21:42)
[2021-09-29 21:43] VITALS: BP 98/45
[2021-09-30] MEDS: InsuLIN REG 1unit/0.01ml Soln (100units/ml) SC SCH ×4 (00:36→17:30)
[2021-09-30] MEDS: ACCU-CHEK COMFORT CURVE STRIP VI SCH ×4 (00:39→17:30)
[2021-09-30 04:08] VITALS: BP 96/56
[2021-09-30] MEDS: SUCRALFATE 1 GM/10 ML ORAL SUSP PO SCH ×4 (05:57→21:24)
[2021-09-30 06:53] LABS: Potassium 3.5 mmol/L (3.5-5.1)
[2021-09-30 07:00] LABS: Albumin 2.4 g/dL (3.4-5.0); BUN/Creatinine Ratio 34.8; Calcium 7.9 mg/dL (8.5-10.1); Magnesium 2.3 mg/dL (1.6-2.6)
[2021-09-30 07:02] LABS: Bilirubin, Total 0.9 mg/dL (0.2-1.0); Phosphorus 2.9 mg/dL (2.5-4.90); Total Protein 5.5 g/dL (6.4-8.2)
[2021-09-30 08:00] VITALS: BP 115/64
[2021-09-30] MEDS: PANTOPRAZOLE 40 MG/10 ML VIAL INJ IV SCH (09:38)
[2021-09-30] MEDS: methylPREDNISolone SOD SUCC 40 MG/ML VL IV SCH (09:38)
[2021-09-30] MEDS: LEVOTHYROXINE SODIUM 100 MCG/5 ML INJ IV SCH (09:38)
[2021-09-30] MEDS: THIAMINE HCL 100 MG TAB PO SCH (09:39)
[2021-09-30] MEDS: FOLIC ACID 1 MG TAB PO SCH (09:39)
[2021-09-30] MEDS: POTASSIUM CHL 20MEQ/100ML 100 ML IV SCH ×2 (09:39→12:11)
[2021-09-30] MEDS: AMIODARONE HCL 200 MG TAB PO SCH (09:40)
[2021-09-30] MEDS: CYANOCOBALAMIN 500 MCG TAB PO SCH (09:40)
[2021-09-30] MEDS: CHOLECALCIFEROL (VITD3) 2,000 UNIT CAP/TAB PO SCH (09:40)
[2021-09-30] MEDS: LEVETIRACETAM IV SCH ×2 (11:43→21:26)
[2021-09-30] MEDS: SODIUM CHL 0.9% IV SCH ×2 (11:43→21:26)
[2021-09-30 12:00] VITALS: BP 125/66
[2021-09-30 16:00] VITALS: BP 113/63
[2021-09-30] MEDS: AMINO ACID INFUSION IN D10W 1,000 ML IV SCH (21:22)
[2021-09-30] MEDS: ATORVASTATIN 20 MG TAB PO SCH (21:26)
[2021-10-01 05:30] VITALS: BP 101/44
[2021-10-01] MEDS: InsuLIN REG 1unit/0.01ml Soln (100units/ml) SC SCH ×4 (05:40→17:53)
[2021-10-01] MEDS: ACCU-CHEK COMFORT CURVE STRIP VI SCH ×4 (05:41→17:53)
[2021-10-01] MEDS: SUCRALFATE 1 GM/10 ML ORAL SUSP PO SCH ×4 (05:41→22:00)
[2021-10-01 07:05] LABS: Basophils # (auto) 0 10 ^3/uL (0-0.2); Basophils % (auto) 0.2 % (0.0-2.0); Eosinophils # (auto) 0 10 ^3/uL (0-0.8); Eosinophils % (auto) 0.1 % (0.0-7.0); Hematocrit 35.1 % (36.0-46.0); Lymphocytes # (auto) 1.7 10 ^3/uL (0.4-5.4); Lymphocytes % (auto) 13.3 % (10.0-50.0); Mean Corpuscular Hgb Conc. 34.2 g/dL (32.0-36.0); Mean Corpuscular Volume 87.7 fL (80.0-100.0); Monocytes # (auto) 0.8 10 ^3/uL (0-1.3); Monocytes % (auto) 6.1 % (0.0-12.0); Neutrophils # (auto) 10.1 10 ^3/uL (1.6-8.6); Neutrophils % (auto) 80.3 % (37.0-80.0); Red Cell Distribution Width 15.8 % (11.8-14.3); White Blood Cell 12.6 10^3/uL (4.4-10.8)
[2021-10-01 07:10] LABS: Potassium 3.8 mmol/L (3.5-5.1)
[2021-10-01 07:25] LABS: Albumin 2.4 g/dL (3.4-5.0); BUN/Creatinine Ratio 37.7; Calcium 8.3 mg/dL (8.5-10.1); Magnesium 2.6 mg/dL (1.6-2.6); Phosphorus 2.3 mg/dL (2.5-4.90)
[2021-10-01 08:30] VITALS: BP 127/66
[2021-10-01] MEDS ORDERED: SODIUM PHOSPHATES 24 MEQ in SODIUM CHL 0.9% 100 ML IV ONE (08:45)
[2021-10-01] MEDS: FOLIC ACID 1 MG TAB PO SCH (10:00)
[2021-10-01] MEDS: THIAMINE HCL 100 MG TAB PO SCH (10:00)
[2021-10-01] MEDS: CYANOCOBALAMIN 500 MCG TAB PO SCH (10:00)
[2021-10-01] MEDS: AMIODARONE HCL 200 MG TAB PO SCH (10:00)
[2021-10-01] MEDS: CHOLECALCIFEROL (VITD3) 2,000 UNIT CAP/TAB PO SCH (10:00)
[2021-10-01] MEDS: PANTOPRAZOLE 40 MG/10 ML VIAL INJ IV SCH (10:33)
[2021-10-01] MEDS: methylPREDNISolone SOD SUCC 40 MG/ML VL IV SCH (10:33)
[2021-10-01] MEDS: LEVOTHYROXINE SODIUM 100 MCG/5 ML INJ IV SCH (10:34)
[2021-10-01 12:00] VITALS: BP 106/56
[2021-10-01 17:00] VITALS: BP 116/65
[2021-10-01 21:30] VITALS: BP 114/59
[2021-10-01] MEDS: ATORVASTATIN 20 MG TAB PO SCH (22:00)
[2021-10-01] MEDS: AMINO ACID INFUSION IN D10W 1,000 ML IV SCH (22:06)
[2021-10-02] MEDS: InsuLIN REG 1unit/0.01ml Soln (100units/ml) SC SCH ×4 (01:52→17:55)
[2021-10-02] MEDS: ACCU-CHEK COMFORT CURVE STRIP VI SCH ×4 (01:52→17:55)
[2021-10-02] MEDS: LORazepam 2MG/ML-1ML VIAL IV PRN (04:06)
[2021-10-02 04:30] VITALS: BP 104/60
[2021-10-02] MEDS: SUCRALFATE 1 GM/10 ML ORAL SUSP PO SCH ×4 (05:47→21:35)
[2021-10-02 06:29] LABS: INR 1.09 (0.9-1.15); Partial Thromboplastin Time 23.4 sec (23.6-33.0)
[2021-10-02 06:34] LABS: Potassium 3.2 mmol/L (3.5-5.1)
[2021-10-02 06:42] LABS: Albumin 2.4 g/dL (3.4-5.0); BUN/Creatinine Ratio 34.6; Calcium 8.1 mg/dL (8.5-10.1); Phosphorus 2.8 mg/dL (2.5-4.90); Total Protein 5.8 g/dL (6.4-8.2)
[2021-10-02 08:46] VITALS: BP 99/55
[2021-10-02] MEDS: POTASSIUM CHL 20MEQ/100ML 100 ML IV SCH ×3 (09:16→16:18)
[2021-10-02] MEDS: CYANOCOBALAMIN 500 MCG TAB PO SCH (10:00)
[2021-10-02] MEDS: AMIODARONE HCL 200 MG TAB PO SCH (10:00)
[2021-10-02] MEDS: CHOLECALCIFEROL (VITD3) 2,000 UNIT CAP/TAB PO SCH (10:00)
[2021-10-02] MEDS: THIAMINE HCL 100 MG TAB PO SCH (10:00)
[2021-10-02] MEDS: FOLIC ACID 1 MG TAB PO SCH (10:00)
[2021-10-02] MEDS ORDERED: ROCURONIUM 10MG/ML 10ML VIAL IV ONE (10:26)
[2021-10-02] MEDS ORDERED: ONDANSETRON HCL 4 MG/2 ML VIAL ONE (10:26)
[2021-10-02] MEDS ORDERED: ETOMIDATE (2MG/ML) 20ML VIAL IV ONE (10:26)
[2021-10-02] MEDS ORDERED: HYDROmorphone HCL 2 MG/ML VL ONE ×2 (10:26→13:11)
[2021-10-02] MEDS ORDERED: fentaNYL CITRATE 100 MCG/2 ML VL ONE (10:26)
[2021-10-02] MEDS ORDERED: SODIUM CHLORIDE LOCK 10 ML ONE (10:26)
[2021-10-02] MEDS ORDERED: MIDAZOLAM HCL 2MG/2ML 2ml VIAL (1mg/ml) ONE (10:26)
[2021-10-02] MEDS ORDERED: DexAMETHasone SOD PHOS 10MG/1ML VIAL INJ IV ONE (10:30)
[2021-10-02] MEDS ORDERED: levoFLOXacin 500MG 100 ML IV ONE (10:53)
[2021-10-02] MEDS ORDERED: KETAMINE HCL 10 ML ONE (11:06)
[2021-10-02] MEDS ORDERED: LIDOCAINE W/ EPINEPHRINE 1% 20ML VIAL ONE (11:34)
[2021-10-02] MEDS ORDERED: BUPIVACAINE 0.5% P/F INJ 10 ML VIAL ONE (11:34)
[2021-10-02] MEDS ORDERED: BUPIVACAINE 0.25% INJ 50ML VIAL ONE (11:36)
[2021-10-02] MEDS ORDERED: HYDROmorphone HCL 2 MG/ML VL IV PRN (13:15)
[2021-10-02] MEDS ORDERED: ONDANSETRON HCL 4 MG/2 ML VIAL IV PRN (13:15)
[2021-10-02] MEDS ORDERED: MORPHINE SULFATE 4 MG/ML SYR/VIAL IV PRN (13:15)
[2021-10-02] MEDS: PANTOPRAZOLE 40 MG/10 ML VIAL INJ IV SCH (14:20)
[2021-10-02] MEDS: LEVOTHYROXINE SODIUM 100 MCG/5 ML INJ IV SCH (14:20)
[2021-10-02] MEDS: methylPREDNISolone SOD SUCC 40 MG/ML VL IV SCH (14:21)
[2021-10-02 14:53] VITALS: BP 102/63
[2021-10-02 16:36] VITALS: BP 100/66
[2021-10-02 21:21] VITALS: BP 110/56
[2021-10-02] MEDS: AMINO ACID INFUSION IN D10W 1,000 ML IV SCH (21:34)
[2021-10-02] MEDS: ATORVASTATIN 20 MG TAB PO SCH (21:35)
[2021-10-03] MEDS: InsuLIN REG 1unit/0.01ml Soln (100units/ml) SC SCH ×4 (00:11→17:56)
[2021-10-03] MEDS: ACCU-CHEK COMFORT CURVE STRIP VI SCH ×4 (00:12→17:55)
[2021-10-03 05:00] VITALS: BP 113/67
[2021-10-03] MEDS: SUCRALFATE 1 GM/10 ML ORAL SUSP PO SCH ×4 (05:55→22:25)
[2021-10-03 06:03] LABS: Basophils # (auto) 0 10 ^3/uL (0-0.2); Basophils % (auto) 0.1 % (0.0-2.0); Eosinophils # (auto) 0 10 ^3/uL (0-0.8); Hematocrit 33.5 % (36.0-46.0); Hemoglobin 11.4 g/dL (12.2-16.2); Lymphocytes # (auto) 0.7 10 ^3/uL (0.4-5.4); Lymphocytes % (auto) 7.2 % (10.0-50.0); Mean Corpuscular Hemoglobin 29.9 pg (28.0-32.0); Monocytes # (auto) 0.5 10 ^3/uL (0-1.3); Monocytes % (auto) 5.5 % (0.0-12.0); Neutrophils # (auto) 8.4 10 ^3/uL (1.6-8.6); Neutrophils % (auto) 87.2 % (37.0-80.0); Red Blood Cells 3.81 10^6/uL (4.0-5.20); Red Cell Distribution Width 15.2 % (11.8-14.3); White Blood Cell 9.6 10^3/uL (4.4-10.8)
[2021-10-03 06:15] LABS: Albumin 2.3 g/dL (3.4-5.0); Calcium 8.3 mg/dL (8.5-10.1); Potassium 3.7 mmol/L (3.5-5.1)
[2021-10-03 06:19] LABS: BUN/Creatinine Ratio 32.7; Bilirubin, Total 0.8 mg/dL (0.2-1.0); Phosphorus 2.5 mg/dL (2.5-4.90); Total Protein 5.7 g/dL (6.4-8.2)
[2021-10-03 09:00] VITALS: BP 106/53
[2021-10-03] MEDS: LEVOTHYROXINE SODIUM 100 MCG/5 ML INJ IV SCH (10:34)
[2021-10-03] MEDS: FOLIC ACID 1 MG TAB PO SCH (10:34)
[2021-10-03] MEDS: methylPREDNISolone SOD SUCC 40 MG/ML VL IV SCH (10:34)
[2021-10-03] MEDS: AMIODARONE HCL 200 MG TAB PO SCH (10:35)
[2021-10-03] MEDS: PANTOPRAZOLE 40 MG/10 ML VIAL INJ IV SCH (10:35)
[2021-10-03] MEDS: CHOLECALCIFEROL (VITD3) 2,000 UNIT CAP/TAB PO SCH (10:35)
[2021-10-03] MEDS: THIAMINE HCL 100 MG TAB PO SCH (10:35)
[2021-10-03] MEDS: CYANOCOBALAMIN 500 MCG TAB PO SCH (10:35)
[2021-10-03 13:00] VITALS: BP 107/54
[2021-10-03 17:02] VITALS: BP 109/68
[2021-10-03] MEDS ORDERED: Ensure Enlive Vanilla 8oz Bottle PO SCH (17:30)
[2021-10-03] MEDS ORDERED: Glucerna 1.2 Cal 1Liter BOTTLE GT SCH (18:30)
[2021-10-03] MEDS ORDERED: AMINO ACID INFUSION IN D10W 1,000 ML IV SCH (19:00)
[2021-10-03 21:45] VITALS: BP 108/60
[2021-10-03] MEDS ORDERED: APIXABAN 2.5 MG TAB PO SCH (22:00)
[2021-10-03] MEDS: ATORVASTATIN 20 MG TAB PO SCH (22:25)
[2021-10-03] MEDS: APIXABAN 5 MG TAB PO SCH (22:26)
[2021-10-04 05:00] VITALS: BP 101/50
[2021-10-04] MEDS: InsuLIN REG 1unit/0.01ml Soln (100units/ml) SC SCH ×4 (06:00→17:24)
[2021-10-04] MEDS: SUCRALFATE 1 GM/10 ML ORAL SUSP PO SCH ×4 (06:47→22:50)
[2021-10-04] MEDS: ACCU-CHEK COMFORT CURVE STRIP VI SCH ×4 (07:00→17:23)
[2021-10-04 09:00] VITALS: BP 97/53
[2021-10-04] MEDS: PANTOPRAZOLE 40 MG/10 ML VIAL INJ IV SCH (10:16)
[2021-10-04] MEDS: LEVOTHYROXINE SODIUM 100 MCG/5 ML INJ IV SCH (10:16)
[2021-10-04] MEDS: methylPREDNISolone SOD SUCC 40 MG/ML VL IV SCH (10:16)
[2021-10-04] MEDS: APIXABAN 5 MG TAB PO SCH ×2 (10:17→22:51)
[2021-10-04] MEDS: FOLIC ACID 1 MG TAB PO SCH (10:17)
[2021-10-04] MEDS: THIAMINE HCL 100 MG TAB PO SCH (10:17)
[2021-10-04] MEDS: AMIODARONE HCL 200 MG TAB PO SCH (10:17)
[2021-10-04] MEDS: CHOLECALCIFEROL (VITD3) 2,000 UNIT CAP/TAB PO SCH (10:18)
[2021-10-04] MEDS: CYANOCOBALAMIN 500 MCG TAB PO SCH (10:18)
[2021-10-04 10:35] LABS: Albumin 2.4 g/dL (3.4-5.0); Calcium 8.6 mg/dL (8.5-10.1); Magnesium 2.3 mg/dL (1.6-2.6)
[2021-10-04 10:40] LABS: BUN/Creatinine Ratio 36.5; Bilirubin, Total 0.9 mg/dL (0.2-1.0); Phosphorus 2.2 mg/dL (2.5-4.90); Total Protein 6.1 g/dL (6.4-8.2)
[2021-10-04 13:00] VITALS: BP 94/36
[2021-10-04 17:00] VITALS: BP 95/55
[2021-10-04 21:27] VITALS: BP 112/61
[2021-10-04] MEDS: levETIRAcetam 500 MG TAB PO SCH (22:51)
[2021-10-04] MEDS: ATORVASTATIN 20 MG TAB PO SCH (22:51)
[2021-10-05] MEDS: InsuLIN REG 1unit/0.01ml Soln (100units/ml) SC SCH ×4 (00:53→18:04)
[2021-10-05] MEDS: ACCU-CHEK COMFORT CURVE STRIP VI SCH ×4 (00:56→18:03)
[2021-10-05 05:00] VITALS: BP 138/87
[2021-10-05] MEDS: SUCRALFATE 1 GM/10 ML ORAL SUSP PO SCH ×4 (06:28→21:51)
[2021-10-05 09:08] VITALS: BP 150/79
[2021-10-05] MEDS: APIXABAN 5 MG TAB PO SCH ×2 (09:55→21:51)
[2021-10-05] MEDS: FOLIC ACID 1 MG TAB PO SCH (09:55)
[2021-10-05] MEDS: THIAMINE HCL 100 MG TAB PO SCH (09:55)
[2021-10-05] MEDS: CYANOCOBALAMIN 500 MCG TAB PO SCH (09:56)
[2021-10-05] MEDS: CHOLECALCIFEROL (VITD3) 2,000 UNIT CAP/TAB PO SCH (09:56)
[2021-10-05] MEDS: levETIRAcetam 500 MG TAB PO SCH ×2 (09:56→21:51)
[2021-10-05] MEDS: LORazepam 2MG/ML-1ML VIAL IV PRN (09:57)
[2021-10-05] MEDS ORDERED: LEVOTHYROXINE SODIUM 50 MCG TAB PO SCH (10:00)
[2021-10-05] MEDS ORDERED: predniSONE 20 MG TAB PO SCH (10:00)
[2021-10-05] MEDS ORDERED: PANTOPRAZOLE 40 MG TAB PO SCH (10:00)
[2021-10-05] MEDS: AMIODARONE HCL 200 MG TAB PO SCH (10:13)
[2021-10-05 13:00] VITALS: BP 121/89
[2021-10-05 17:03] VITALS: BP 113/83
[2021-10-05] MEDS: ATORVASTATIN 20 MG TAB PO SCH (21:51)
[2021-10-05 22:00] VITALS: BP 126/79
[2021-10-06] MEDS: ACCU-CHEK COMFORT CURVE STRIP VI SCH ×5 (02:34→23:57)
[2021-10-06] MEDS: InsuLIN REG 1unit/0.01ml Soln (100units/ml) SC SCH ×5 (02:34→23:57)
[2021-10-06] MEDS: LORazepam 2MG/ML-1ML VIAL IV PRN (02:36)
[2021-10-06 05:00] VITALS: BP 116/79
[2021-10-06] MEDS: SUCRALFATE 1 GM/10 ML ORAL SUSP PO SCH (06:38)
[2021-10-06 08:15] VITALS: BP 114/68
[2021-10-06] MEDS: OMEPRAZOLE 20MG/10ML ORAL SUSP GT SCH (10:00)
[2021-10-06] MEDS ORDERED: LACTULOSE 20Gm/30ML SOLN GT PRN (10:00)
[2021-10-06] MEDS: LEVOTHYROXINE SODIUM 50 MCG TAB GT SCH (11:51)
[2021-10-06] MEDS: AMIODARONE HCL 200 MG TAB GT SCH (11:51)
[2021-10-06] MEDS: APIXABAN 5 MG TAB GT SCH ×2 (11:52→21:52)
[2021-10-06] MEDS: CHOLECALCIFEROL (VITD3) 2,000 UNIT CAP/TAB GT SCH (11:52)
[2021-10-06] MEDS: levETIRAcetam 500 MG TAB PO SCH ×2 (11:53→21:52)
[2021-10-06] MEDS: CYANOCOBALAMIN 500 MCG TAB GT SCH (11:57)
[2021-10-06] MEDS: SUCRALFATE 1 GM/10 ML ORAL SUSP GT SCH ×3 (11:58→21:52)
[2021-10-06] MEDS: FOLIC ACID 1 MG TAB GT SCH (11:58)
[2021-10-06] MEDS: predniSONE 20 MG TAB GT SCH (11:58)
[2021-10-06] MEDS: THIAMINE HCL 100 MG TAB GT SCH (11:58)
[2021-10-06 12:10] VITALS: BP 108/73
[2021-10-06 13:35] LABS: Magnesium 2.5 mg/dL (1.6-2.6); Potassium 3.8 mmol/L (3.5-5.1)
[2021-10-06 16:10] VITALS: BP 97/50
[2021-10-06] MEDS ORDERED: SODIUM CHLORIDE 0.9% 1,000 ML IV ONE (17:30)
[2021-10-06] MEDS ORDERED: levoFLOXacin 250 MG TAB PO ONE (17:30)
[2021-10-06] MEDS ORDERED: levoFLOXacin 750MG 150 ML IV ONE (17:45)
[2021-10-06 19:19] LABS: Basophils # (auto) 0 10 ^3/uL (0-0.2); Basophils % (auto) 0.2 % (0.0-2.0); Eosinophils # (auto) 0 10 ^3/uL (0-0.8); Eosinophils % (auto) 0.3 % (0.0-7.0); Hemoglobin 11.5 g/dL (12.2-16.2); Lymphocytes # (auto) 0.9 10 ^3/uL (0.4-5.4); Lymphocytes % (auto) 7.7 % (10.0-50.0); Mean Corpuscular Hemoglobin 29.3 pg (28.0-32.0); Mean Corpuscular Hgb Conc. 32.7 g/dL (32.0-36.0); Mean Corpuscular Volume 89.4 fL (80.0-100.0); Monocytes # (auto) 0.5 10 ^3/uL (0-1.3); Neutrophils # (auto) 10.2 10 ^3/uL (1.6-8.6); Neutrophils % (auto) 87.8 % (37.0-80.0); Nucleated Red Blood Cells % 0.1 %; Red Blood Cells 3.92 10^6/uL (4.0-5.20); Red Cell Distribution Width 16.2 % (11.8-14.3); White Blood Cell 11.6 10^3/uL (4.4-10.8)
[2021-10-06 19:39] LABS: Urine Bacteria NONE SEEN /hpf (None Seen); Urine Blood 1+ /uL (Negative); Urine Budding Yeast MODERATE /hpf (None Seen); Urine Mucus FEW (None Seen); Urine Specific Gravity 1.026 (1.001-1.035); Urine WBC 181 /hpf (0 - 5)
[2021-10-06] MEDS: ATORVASTATIN 20 MG TAB GT SCH (21:52)
[2021-10-06 22:00] VITALS: BP 114/61
[2021-10-07] MEDS: LORazepam 2MG/ML-1ML VIAL IV PRN (04:27)
[2021-10-07 05:00] VITALS: BP 130/63
[2021-10-07] MEDS: ACCU-CHEK COMFORT CURVE STRIP VI SCH ×4 (05:32→23:44)
[2021-10-07] MEDS: InsuLIN REG 1unit/0.01ml Soln (100units/ml) SC SCH ×4 (05:32→23:44)
[2021-10-07] MEDS: SUCRALFATE 1 GM/10 ML ORAL SUSP GT SCH ×4 (05:33→21:49)
[2021-10-07 08:05] VITALS: BP 110/56
[2021-10-07 09:47] LABS: Basophils # (auto) 0 10 ^3/uL (0-0.2); Basophils % (auto) 0.3 % (0.0-2.0); Eosinophils # (auto) 0.2 10 ^3/uL (0-0.8); Eosinophils % (auto) 2.2 % (0.0-7.0); Hematocrit 31.8 % (36.0-46.0); Hemoglobin 10.7 g/dL (12.2-16.2); Lymphocytes # (auto) 1.1 10 ^3/uL (0.4-5.4); Lymphocytes % (auto) 10.1 % (10.0-50.0); Mean Corpuscular Hemoglobin 29.8 pg (28.0-32.0); Mean Corpuscular Hgb Conc. 33.6 g/dL (32.0-36.0); Mean Corpuscular Volume 88.6 fL (80.0-100.0); Monocytes # (auto) 0.7 10 ^3/uL (0-1.3); Monocytes % (auto) 6.1 % (0.0-12.0); Neutrophils % (auto) 81.3 % (37.0-80.0); Nucleated Red Blood Cells % 0.1 %; Red Blood Cells 3.59 10^6/uL (4.0-5.20); Red Cell Distribution Width 16.3 % (11.8-14.3); White Blood Cell 11.1 10^3/uL (4.4-10.8)
[2021-10-07] MEDS ORDERED: levoFLOXacin 500MG 100 ML IV ONE (10:00)
[2021-10-07] MEDS ORDERED: levoFLOXacin 500 MG TAB PO SCH (10:00)
[2021-10-07 10:04] LABS: Calcium 8.2 mg/dL (8.5-10.1); Potassium 3.8 mmol/L (3.5-5.1)
[2021-10-07] MEDS: CYANOCOBALAMIN 500 MCG TAB GT SCH (11:26)
[2021-10-07] MEDS: FOLIC ACID 1 MG TAB GT SCH (11:26)
[2021-10-07] MEDS: LEVOTHYROXINE SODIUM 50 MCG TAB GT SCH (11:26)
[2021-10-07] MEDS: APIXABAN 5 MG TAB GT SCH ×2 (11:27→21:49)
[2021-10-07] MEDS: predniSONE 20 MG TAB GT SCH (11:27)
[2021-10-07] MEDS: AMIODARONE HCL 200 MG TAB GT SCH (11:27)
[2021-10-07] MEDS: levETIRAcetam 500 MG TAB PO SCH ×2 (11:28→21:49)
[2021-10-07] MEDS: CHOLECALCIFEROL (VITD3) 2,000 UNIT CAP/TAB GT SCH (11:28)
[2021-10-07] MEDS: THIAMINE HCL 100 MG TAB GT SCH (11:28)
[2021-10-07] MEDS: OMEPRAZOLE 20MG/10ML ORAL SUSP GT SCH (11:31)
[2021-10-07 12:05] VITALS: BP 107/64
[2021-10-07 16:15] VITALS: BP 101/51
[2021-10-07] MEDS: ATORVASTATIN 20 MG TAB GT SCH (21:49)
[2021-10-07 21:56] VITALS: BP 104/69
[2021-10-08] MEDS: LORazepam 2MG/ML-1ML VIAL IV PRN (04:41)
[2021-10-08 05:00] VITALS: BP 147/70
[2021-10-08] MEDS: ACCU-CHEK COMFORT CURVE STRIP VI SCH ×4 (05:02→23:31)
[2021-10-08] MEDS: SUCRALFATE 1 GM/10 ML ORAL SUSP GT SCH ×4 (05:02→21:32)
[2021-10-08] MEDS: InsuLIN REG 1unit/0.01ml Soln (100units/ml) SC SCH ×4 (05:02→23:31)
[2021-10-08 08:10] VITALS: BP 123/49
[2021-10-08] MEDS: D5W/SOD CHL 0.45% 1,000 ML IV SCH (09:12)
[2021-10-08] MEDS: PANTOPRAZOLE 40 MG/10 ML VIAL INJ IV SCH (09:13)
[2021-10-08] MEDS: LEVOTHYROXINE SODIUM 100 MCG/5 ML INJ IV SCH (09:13)
[2021-10-08] MEDS: levoFLOXacin 500MG 100 ML IV SCH (09:13)
[2021-10-08] MEDS: APIXABAN 5 MG TAB GT SCH ×2 (10:00→21:32)
[2021-10-08] MEDS: THIAMINE HCL 100 MG TAB GT SCH (10:00)
[2021-10-08] MEDS: FOLIC ACID 1 MG TAB GT SCH (10:00)
[2021-10-08] MEDS: AMIODARONE HCL 200 MG TAB GT SCH (10:00)
[2021-10-08] MEDS: CYANOCOBALAMIN 500 MCG TAB GT SCH (10:00)
[2021-10-08] MEDS ORDERED: levoFLOXacin 500 MG TAB PO SCH (10:00)
[2021-10-08] MEDS: CHOLECALCIFEROL (VITD3) 2,000 UNIT CAP/TAB GT SCH (10:00)
[2021-10-08 12:09] VITALS: BP 92/52
[2021-10-08] MEDS ORDERED: SODIUM CHLORIDE 0.9% 1,000 ML IV ONE (13:30)
[2021-10-08 16:10] VITALS: BP 107/59
[2021-10-08 18:16] LABS: Basophils # (auto) 0 10 ^3/uL (0-0.2); Basophils % (auto) 0.4 % (0.0-2.0); Eosinophils # (auto) 0.1 10 ^3/uL (0-0.8); Eosinophils % (auto) 0.8 % (0.0-7.0); Hematocrit 31.4 % (36.0-46.0); Hemoglobin 10.5 g/dL (12.2-16.2); Lymphocytes # (auto) 1.5 10 ^3/uL (0.4-5.4); Lymphocytes % (auto) 14.1 % (10.0-50.0); Mean Corpuscular Hemoglobin 29.5 pg (28.0-32.0); Mean Corpuscular Hgb Conc. 33.4 g/dL (32.0-36.0); Mean Corpuscular Volume 88.2 fL (80.0-100.0); Monocytes # (auto) 0.7 10 ^3/uL (0-1.3); Monocytes % (auto) 6.3 % (0.0-12.0); Neutrophils # (auto) 8.2 10 ^3/uL (1.6-8.6); Neutrophils % (auto) 78.4 % (37.0-80.0); Red Blood Cells 3.56 10^6/uL (4.0-5.20); Red Cell Distribution Width 15.8 % (11.8-14.3); White Blood Cell 10.4 10^3/uL (4.4-10.8)
[2021-10-08] MEDS: ATORVASTATIN 20 MG TAB GT SCH (21:32)
[2021-10-08 22:00] VITALS: BP 109/57
[2021-10-09] MEDS: D5W/SOD CHL 0.45% 1,000 ML IV SCH (04:15)
[2021-10-09 05:00] VITALS: BP 116/62
[2021-10-09] MEDS: ACCU-CHEK COMFORT CURVE STRIP VI SCH ×3 (05:24→19:46)
[2021-10-09] MEDS: InsuLIN REG 1unit/0.01ml Soln (100units/ml) SC SCH ×3 (05:25→18:00)
[2021-10-09] MEDS: SUCRALFATE 1 GM/10 ML ORAL SUSP GT SCH ×3 (05:25→17:00)
[2021-10-09 09:00] VITALS: BP 112/58
[2021-10-09] MEDS: LEVOTHYROXINE SODIUM 100 MCG/5 ML INJ IV SCH (09:52)
[2021-10-09] MEDS: PANTOPRAZOLE 40 MG/10 ML VIAL INJ IV SCH (09:52)
[2021-10-09] MEDS: levoFLOXacin 500MG 100 ML IV SCH (09:52)
[2021-10-09] MEDS: CHOLECALCIFEROL (VITD3) 2,000 UNIT CAP/TAB GT SCH (10:00)
[2021-10-09] MEDS: AMIODARONE HCL 200 MG TAB GT SCH (10:00)
[2021-10-09] MEDS: FOLIC ACID 1 MG TAB GT SCH (10:00)
[2021-10-09] MEDS: THIAMINE HCL 100 MG TAB GT SCH (10:00)
[2021-10-09] MEDS: APIXABAN 5 MG TAB GT SCH (10:00)
[2021-10-09] MEDS: CYANOCOBALAMIN 500 MCG TAB GT SCH (10:00)
[2021-10-09 13:00] VITALS: BP 101/55
[2021-10-09 17:00] VITALS: BP 104/56
== END 2021-10-09 19:39 | DRG 870 ==
LOC: EDBD 03:31 → ER 03:31 → TELE 10:22 → TELE-EAST 11:36 → ICU CENTRL 09-12 23:34 → DOU IN ICU 09-12 23:41 → ICU WEST 09-14 22:27 → TELE-EAST 09-23 17:59
PROVIDERS: ADMIT Hospitalist; ATTEND Internal Medicine
PROC: 05HB33Z Insertion of Infusion Device into Right Basilic Vein, Percutaneous Approach (ICD-10-PCS; 2021-09-12)
PROC: B54MZZA Ultrasonography of Right Upper Extremity Veins, Guidance (ICD-10-PCS; 2021-09-12)
PROC: 5A1955Z Respiratory Ventilation, Greater than 96 Consecutive Hours (ICD-10-PCS; principal; 2021-09-13)
PROC: 0BH17EZ Insertion of Endotracheal Airway into Trachea, Via Natural or Artificial Opening (ICD-10-PCS; 2021-09-13)
PROC: 02HV33Z Insertion of Infusion Device into Superior Vena Cava, Percutaneous Approach (ICD-10-PCS; 2021-09-13)
PROC: B548ZZA Ultrasonography of Superior Vena Cava, Guidance (ICD-10-PCS; 2021-09-13)
PROC: 009U3ZX Drainage of Spinal Canal, Percutaneous Approach, Diagnostic (ICD-10-PCS; 2021-09-19)
PROC: B01B1ZZ Fluoroscopy of Spinal Cord using Low Osmolar Contrast (ICD-10-PCS; 2021-09-19)
PROC: 0DJ08ZZ Inspection of Upper Intestinal Tract, Via Natural or Artificial Opening Endoscopic (ICD-10-PCS; 2021-09-29)
PROC: 0DH60UZ Insertion of Feeding Device into Stomach, Open Approach (ICD-10-PCS; 2021-10-02)
DX: A41.9 Sepsis, unspecified organism (principal); I50.33 Acute on chronic diastolic (congestive) heart failure; J96.01 Acute respiratory failure with hypoxia; R65.21 Severe sepsis with septic shock; G03.9 Meningitis, unspecified; G92.8 Other toxic encephalopathy; J18.9 Pneumonia, unspecified organism; J44.1 Chronic obstructive pulmonary disease with (acute) exacerbation; M62.82 Rhabdomyolysis; N39.0 Urinary tract infection, site not specified; R18.8 Other ascites; I13.0 Hypertensive heart and chronic kidney disease with heart failure and stage 1 through stage 4 chronic kidney disease, or unspecified chronic kidney disease; J44.0 Chronic obstructive pulmonary disease with (acute) lower respiratory infection; N17.9 Acute kidney failure, unspecified; I47.1 Supraventricular tachycardia; E03.9 Hypothyroidism, unspecified; E11.22 Type 2 diabetes mellitus with diabetic chronic kidney disease; E11.40 Type 2 diabetes mellitus with diabetic neuropathy, unspecified; E66.01 Morbid (severe) obesity due to excess calories; E87.6 Hypokalemia; I25.10 Atherosclerotic heart disease of native coronary artery without angina pectoris; K21.9 Gastro-esophageal reflux disease without esophagitis; M19.90 Unspecified osteoarthritis, unspecified site; N18.31 Chronic kidney disease, stage 3a; F41.9 Anxiety disorder, unspecified; Z68.36 Body mass index [BMI] 36.0-36.9, adult; K44.9 Diaphragmatic hernia without obstruction or gangrene; E11.65 Type 2 diabetes mellitus with hyperglycemia; E78.5 Hyperlipidemia, unspecified; F17.200 Nicotine dependence, unspecified, uncomplicated; G40.401 Other generalized epilepsy and epileptic syndromes, not intractable, with status epilepticus; I48.91 Unspecified atrial fibrillation; E07.9 Disorder of thyroid, unspecified; M06.9 Rheumatoid arthritis, unspecified; R13.10 Dysphagia, unspecified; F32.A Depression, unspecified; H57.02 Anisocoria; R00.1 Bradycardia, unspecified; Z20.822 Contact with and (suspected) exposure to COVID-19; Z51.5 Encounter for palliative care; Z75.1 Person awaiting admission to adequate facility elsewhere; Z79.02 Long term (current) use of antithrombotics/antiplatelets; Z79.4 Long term (current) use of insulin; Z79.899 Other long term (current) drug therapy; Z82.49 Family history of ischemic heart disease and other diseases of the circulatory system; Z86.73 Personal history of transient ischemic attack (TIA), and cerebral infarction without residual deficits; Z90.710 Acquired absence of both cervix and uterus; Z91.14 Patient's other noncompliance with medication regimen
CPT/HCPCS: 31720; 36415; 36600; 62272; 70450; 70551; 71045; 80048; 80053; 80061; 80069; 80202; 81001; 82542; 82550; 82805; 82945; 82962; 83605; 83690; 83735; 83880; 84100; 84132; 84157; 84443; 84484; 85025; 85610; 85730; 86850; 86900; 86901; 87040; 87070; 87077; 87081; 87086; 87205; 87529; 88108; 89051; 93005; 93306; 93886; 93971; 94002; 94003; 94640; 95819; 96365; 96367; 96372; 96375; 99291; C9113; G0378; J1100; J1815; J1956; J2001; J2185; J2250; J2405; J2704; J3480; J3490; J7060

== ENCOUNTER 2021-10-10 12:50 | Inpatient (IN) | payer OTHER, MEDICAID ==
[~2021-10-10] VITALS: Ht 172.7 cm; Wt 109.5 kg
[~2021-10-10 12:50] MED LIST changes: -ARIP2TAB PO; +ATOR20TA PO; +CLOP75TA28 PO; -DULO60CA PO; +FOLI1TAB6 PO; +LEVE500T32 PO; -MELO1TAB73 PO; -METO25TA93 PO; -TRAZ100T3 PO
[2021-10-10] MEDS ORDERED: GASTROGRAFIN 30 ML SOL ONE (13:53)
[2021-10-10 16:21] LABS: Basophils # (auto) 0 10 ^3/uL (0-0.2); Basophils % (auto) 0.3 % (0.0-2.0); Eosinophils # (auto) 0 10 ^3/uL (0-0.8); Eosinophils % (auto) 0.1 % (0.0-7.0); Hemoglobin 10.8 g/dL (12.2-16.2); Mean Corpuscular Hemoglobin 29.7 pg (28.0-32.0); Mean Corpuscular Hgb Conc. 33.9 g/dL (32.0-36.0); Mean Corpuscular Volume 87.7 fL (80.0-100.0); Monocytes # (auto) 0.7 10 ^3/uL (0-1.3); Monocytes % (auto) 7.4 % (0.0-12.0); Neutrophils # (auto) 8.1 10 ^3/uL (1.6-8.6); Neutrophils % (auto) 82.2 % (37.0-80.0); Nucleated Red Blood Cells % 0.1 %; Red Blood Cells 3.65 10^6/uL (4.0-5.20); Red Cell Distribution Width 15.8 % (11.8-14.3); White Blood Cell 9.8 10^3/uL (4.4-10.8)
[2021-10-10 16:37] LABS: Albumin 1.9 g/dL (3.4-5.0); Anion Gap 7 (5-15); BUN/Creatinine Ratio 17.4; Blood Urea Nitrogen 16 mg/dL (7-18); Calcium 7.9 mg/dL (8.5-10.1); Carbon Dioxide 24 mmol/L (21-32); Chloride 110 mmol/L (98-107); GFR African American 77 mL/min; GFR Non-African American 64 mL/min; Glucose 127 mg/dL (74-106); Magnesium 2.3 mg/dL (1.6-2.6); Potassium 3.4 mmol/L (3.5-5.1); Sodium 141 mmol/L (136-145)
[2021-10-10 16:39] LABS: Lactic Acid w/Reflex 2.1 mmol/L (0.4-2.0)
[2021-10-10] MEDS ORDERED: levoFLOXacin 750MG 150 ML IV ONE (16:45)
[2021-10-10 16:53] LABS: Alanine Aminotransferase 102 U/L (13-56); Alkaline Phosphatase 65 U/L (45-117); Aspartate Aminotransferase 53 U/L (15-37); Bilirubin, Total 1.5 mg/dL (0.2-1.0)
[2021-10-10 17:09] LABS: Urine Bacteria NONE SEEN /hpf (None Seen); Urine Blood 2+ /uL (Negative); Urine Budding Yeast MANY /hpf (None Seen); Urine Hyaline Cast FEW /lpf (0 - 2); Urine Mucus FEW (None Seen); Urine Specific Gravity 1.025 (1.001-1.035); Urine WBC 60 /hpf (0 - 5)
[2021-10-10] MEDS ORDERED: ONDANSETRON HCL 4 MG/2 ML VIAL IV PRN (19:00)
[2021-10-10] MEDS ORDERED: MORPHINE SULFATE INJECTION 2 MG/ML SYRG IV PRN (19:00)
[2021-10-10] MEDS ORDERED: SODIUM CHLORIDE 0.9% 1,000 ML IV ONE (19:00)
[2021-10-10] MEDS ORDERED: NITROGLYCERIN 0.4 MG SL TAB SL PRN (19:00)
[2021-10-10] MEDS ORDERED: D5W/SOD CHL 0.45%/KCL 20MEQ 1,000 ML IV ONE (19:00)
[2021-10-10] MEDS ORDERED: ALBUTEROL SULF 2.5 MG/0.5ML(0.5%) NEB SOLN NEB PRN (19:30)
[2021-10-10 19:44] VITALS: BP 97/60
[2021-10-10] MEDS ORDERED: FUROSEMIDE 40 MG/4 ML VIAL IV ONE (20:00)
[2021-10-10 23:00] VITALS: BP 88/44
[2021-10-11 09:00] VITALS: BP 91/58
[2021-10-11] MEDS: levoFLOXacin 500MG 100 ML IV SCH (10:27)
[2021-10-11] MEDS: ENOXAPARIN SOD 40 MG/0.4 ML SYRINGE SC SCH (10:27)
[2021-10-11] MEDS: PANTOPRAZOLE 40 MG/10 ML VIAL INJ IV SCH (10:27)
[2021-10-11 10:37] LABS: Basophils # (auto) 0 10 ^3/uL (0-0.2); Basophils % (auto) 0.2 % (0.0-2.0); Eosinophils # (auto) 0.1 10 ^3/uL (0-0.8); Eosinophils % (auto) 0.6 % (0.0-7.0); Hematocrit 32.8 % (36.0-46.0); Hemoglobin 10.7 g/dL (12.2-16.2); Lymphocytes # (auto) 1.1 10 ^3/uL (0.4-5.4); Lymphocytes % (auto) 11.4 % (10.0-50.0); Mean Corpuscular Hemoglobin 28.8 pg (28.0-32.0); Mean Corpuscular Hgb Conc. 32.7 g/dL (32.0-36.0); Mean Corpuscular Volume 87.9 fL (80.0-100.0); Monocytes # (auto) 0.8 10 ^3/uL (0-1.3); Monocytes % (auto) 8.6 % (0.0-12.0); Neutrophils # (auto) 7.8 10 ^3/uL (1.6-8.6); Neutrophils % (auto) 79.2 % (37.0-80.0); Nucleated Red Blood Cells % 0.2 %; Red Blood Cells 3.73 10^6/uL (4.0-5.20); Red Cell Distribution Width 15.7 % (11.8-14.3); White Blood Cell 9.9 10^3/uL (4.4-10.8)
[2021-10-11 10:55] LABS: Albumin 1.8 g/dL (3.4-5.0); Calcium 8.1 mg/dL (8.5-10.1)
[2021-10-11 10:59] LABS: Bilirubin, Total 1.3 mg/dL (0.2-1.0); Total Protein 6.1 g/dL (6.4-8.2)
[2021-10-11 11:14] LABS: Potassium 2.7 mmol/L (3.5-5.1)
[2021-10-11] MEDS: MORPHINE SULFATE INJECTION 2 MG/ML SYRG IV PRN (12:12)
[2021-10-11] MEDS: POTASSIUM CHL 20MEQ/100ML 100 ML IV SCH ×3 (12:36→16:47)
[2021-10-11] MEDS: metroNIDAZOLE 500MG/100ML 100 ML IV SCH ×2 (14:30→22:30)
[2021-10-11] MEDS ORDERED: PPN PER PHARMACY 0 ML IV SCH (16:45)
[2021-10-11 18:27] LABS: INR 1.28 (0.9-1.15); Partial Thromboplastin Time 25.4 sec (23.6-33.0)
[2021-10-11] MEDS: AMINO ACID INFUSION IN D10W 1,000 ML IV NR (20:29)
[2021-10-11 21:53] VITALS: BP 95/56
[2021-10-11 23:26] VITALS: BP 98/67
[2021-10-11 23:31] LABS: Potassium 3.1 mmol/L (3.5-5.1)
[2021-10-12] MEDS ORDERED: DEXTROSE (50%) 50ML SYRG IV SCH
[2021-10-12] MEDS: InsuLIN REG 1unit/0.01ml Soln (100units/ml) SC SCH ×4 (00:40→18:00)
[2021-10-12] MEDS: ACCU-CHEK COMFORT CURVE STRIP VI SCH ×4 (00:40→18:26)
[2021-10-12 05:00] VITALS: BP 99/49
[2021-10-12] MEDS: metroNIDAZOLE 500MG/100ML 100 ML IV SCH ×3 (05:45→22:17)
[2021-10-12] MEDS: levoFLOXacin 500MG 100 ML IV SCH (08:22)
[2021-10-12] MEDS: PANTOPRAZOLE 40 MG/10 ML VIAL INJ IV SCH (08:22)
[2021-10-12] MEDS: ENOXAPARIN SOD 40 MG/0.4 ML SYRINGE SC SCH (08:22)
[2021-10-12 10:48] LABS: Albumin 1.7 g/dL (3.4-5.0); Magnesium 1.9 mg/dL (1.6-2.6)
[2021-10-12 10:53] LABS: Phosphorus 1.5 mg/dL (2.5-4.90); Total Protein 5.5 g/dL (6.4-8.2)
[2021-10-12 11:08] LABS: Potassium 2.9 mmol/L (3.5-5.1)
[2021-10-12] MEDS: POTASSIUM CHL 20MEQ/100ML 100 ML IV SCH ×2 (13:40→14:47)
[2021-10-12 14:00] VITALS: BP 107/53
[2021-10-12] MEDS ORDERED: POTASSIUM PHOSPHATE 44 MEQ in D5W 5% 250 ML IV ONE (16:45)
[2021-10-12 17:00] VITALS: BP 146/65
[2021-10-12] MEDS: AMINO ACID INFUSION IN D10W 1,000 ML IV NR (19:49)
[2021-10-12] MEDS ORDERED: PPN PER PHARMACY IV NR ×9 (20:00)
[2021-10-12 22:00] VITALS: BP 85/48
[2021-10-13] VITALS (24 sets, daily range): BP systolic 70–131; BP diastolic 45–74
[2021-10-13] MEDS: ACCU-CHEK COMFORT CURVE STRIP VI SCH ×4 (00:09→17:44)
[2021-10-13] MEDS: InsuLIN REG 1unit/0.01ml Soln (100units/ml) SC SCH ×4 (00:10→17:44)
[2021-10-13 05:47] LABS: Albumin 1.7 g/dL (3.4-5.0); BUN/Creatinine Ratio 25.5; Calcium 7.7 mg/dL (8.5-10.1); Potassium 3.8 mmol/L (3.5-5.1)
[2021-10-13 05:50] LABS: Bilirubin, Total 0.7 mg/dL (0.2-1.0); Phosphorus 3.6 mg/dL (2.5-4.90); Total Protein 5.9 g/dL (6.4-8.2)
[2021-10-13] MEDS: metroNIDAZOLE 500MG/100ML 100 ML IV SCH ×3 (05:52→21:07)
[2021-10-13] MEDS ORDERED: ALBUMIN 5% 250 ML IV ONE (06:30)
[2021-10-13] MEDS: ENOXAPARIN SOD 40 MG/0.4 ML SYRINGE SC SCH (09:51)
[2021-10-13] MEDS: PANTOPRAZOLE 40 MG/10 ML VIAL INJ IV SCH (09:51)
[2021-10-13] MEDS: levoFLOXacin 500MG 100 ML IV SCH (09:51)
[2021-10-13] MEDS ORDERED: PPN PER PHARMACY IV NR ×9 (20:00)
[2021-10-13] MEDS ORDERED: GLYCOPYRROLATE 0.2 MG/ML 1ML VIAL IV ONE (20:00)
[2021-10-13] MEDS: SODIUM CHLOR 0.9% PF (SALINE LOCK) 10ML VIAL/SYR IV SCH (21:08)
[2021-10-14] VITALS (73 sets, daily range): BP systolic 86–131; BP diastolic 41–76
[2021-10-14] MEDS: ACCU-CHEK COMFORT CURVE STRIP VI SCH ×4 (00:27→18:00)
[2021-10-14] MEDS: metroNIDAZOLE 500MG/100ML 100 ML IV SCH ×3 (05:05→20:36)
[2021-10-14] MEDS: InsuLIN REG 1unit/0.01ml Soln (100units/ml) SC SCH ×4 (05:45→18:00)
[2021-10-14 06:38] LABS: Albumin 1.8 g/dL (3.4-5.0); Calcium 7.8 mg/dL (8.5-10.1); Magnesium 2.1 mg/dL (1.6-2.6); Potassium 3.7 mmol/L (3.5-5.1)
[2021-10-14 06:41] LABS: BUN/Creatinine Ratio 28.3; Bilirubin, Total 0.6 mg/dL (0.2-1.0); Phosphorus 2.4 mg/dL (2.5-4.90)
[2021-10-14] MEDS ORDERED: SODIUM PHOSPHATES 20 MEQ in SODIUM CHL 0.9% 100 ML IV ONE (08:45)
[2021-10-14] MEDS: MORPHINE SULFATE INJECTION 2 MG/ML SYRG IV PRN (09:22)
[2021-10-14] MEDS: levoFLOXacin 500MG 100 ML IV SCH (09:43)
[2021-10-14] MEDS: ENOXAPARIN SOD 40 MG/0.4 ML SYRINGE SC SCH (09:44)
[2021-10-14] MEDS: SODIUM CHLOR 0.9% PF (SALINE LOCK) 10ML VIAL/SYR IV SCH ×2 (09:44→20:30)
[2021-10-14] MEDS: PANTOPRAZOLE 40 MG/10 ML VIAL INJ IV SCH (09:44)
[2021-10-14] MEDS ORDERED: TPN PER PHARMACY IV NR ×9 (20:00)
[2021-10-14] MEDS: MUPIROCIN 2% OINT 15gm or 22gm TOP SCH (20:36)
[2021-10-15] VITALS (21 sets, daily range): BP systolic 79–151; BP diastolic 44–121
[2021-10-15] MEDS: InsuLIN REG 1unit/0.01ml Soln (100units/ml) SC SCH ×4 (06:00→18:00)
[2021-10-15] MEDS: ACCU-CHEK COMFORT CURVE STRIP VI SCH ×4 (06:20→18:07)
[2021-10-15] MEDS: metroNIDAZOLE 500MG/100ML 100 ML IV SCH ×3 (06:30→22:46)
[2021-10-15 08:30] LABS: Potassium 4.1 mmol/L (3.5-5.1)
[2021-10-15 08:38] LABS: Albumin 1.5 g/dL (3.4-5.0); BUN/Creatinine Ratio 43.2; Bilirubin, Total 0.4 mg/dL (0.2-1.0); Calcium 7.7 mg/dL (8.5-10.1); Total Protein 5.4 g/dL (6.4-8.2)
[2021-10-15] MEDS: SODIUM CHLOR 0.9% PF (SALINE LOCK) 10ML VIAL/SYR IV SCH ×2 (10:22→22:12)
[2021-10-15] MEDS: levoFLOXacin 500MG 100 ML IV SCH (10:22)
[2021-10-15] MEDS: PANTOPRAZOLE 40 MG/10 ML VIAL INJ IV SCH (10:22)
[2021-10-15] MEDS: MUPIROCIN 2% OINT 15gm or 22gm TOP SCH ×2 (10:23→22:12)
[2021-10-15] MEDS: ENOXAPARIN SOD 40 MG/0.4 ML SYRINGE SC SCH (10:23)
[2021-10-15] MEDS ORDERED: VANCOMYCIN PER PHARMACY 0 MG IV SCH (14:00)
[2021-10-15] MEDS: MORPHINE SULFATE INJECTION 2 MG/ML SYRG IV PRN ×2 (14:08→18:12)
[2021-10-15] MEDS ORDERED: AMINO ACID INFUSION IN D10W 1,000 ML IV NR ×2 (14:45→15:00)
[2021-10-15] MEDS: VANCOMYCIN 1GM/250ML 250 ML IV SCH (15:00)
[2021-10-15 15:42] LABS: INR 1.29 (0.9-1.15); Partial Thromboplastin Time 31.6 sec (23.6-33.0)
[2021-10-15] MEDS ORDERED: TPN PER PHARMACY IV NR ×9 (20:00)
[2021-10-15] MEDS ORDERED: GLYCOPYRROLATE 0.2 MG/ML 1ML VIAL IV ONE (21:00)
[2021-10-15] MEDS: HYDROmorphone HCL 2 MG/ML VL/or syr IV PRN (21:26)
[2021-10-15] MEDS ORDERED: ACETAMINOPHEN 650 MG RECT SUPP PR PRN (22:00)
[2021-10-16] VITALS (85 sets, daily range): BP systolic 82–139; BP diastolic 34–113
[2021-10-16] MEDS: InsuLIN REG 1unit/0.01ml Soln (100units/ml) SC SCH ×5 (01:21→23:56)
[2021-10-16] MEDS: ACCU-CHEK COMFORT CURVE STRIP VI SCH ×5 (01:21→23:56)
[2021-10-16] MEDS: HYDROmorphone HCL 2 MG/ML VL/or syr IV PRN ×4 (01:23→21:12)
[2021-10-16] MEDS: VANCOMYCIN 1GM/250ML 250 ML IV SCH (03:06)
[2021-10-16] MEDS ORDERED: SODIUM CHLORIDE 0.9% 500 ML IV ONE (03:15)
[2021-10-16] MEDS: metroNIDAZOLE 500MG/100ML 100 ML IV SCH (05:53)
[2021-10-16 06:32] LABS: Potassium 4.8 mmol/L (3.5-5.1)
[2021-10-16 06:33] LABS: Albumin 1.4 g/dL (3.4-5.0); BUN/Creatinine Ratio 26.7; Bilirubin, Total 0.6 mg/dL (0.2-1.0); Calcium 7.4 mg/dL (8.5-10.1); Magnesium 1.9 mg/dL (1.6-2.6); Phosphorus 3.3 mg/dL (2.5-4.90); Total Protein 5.7 g/dL (6.4-8.2)
[2021-10-16 09:40] LABS: Hematocrit 30.1 % (36.0-46.0); Hemoglobin 9.5 g/dL (12.2-16.2); Mean Corpuscular Hemoglobin 29.5 pg (28.0-32.0); Mean Corpuscular Hgb Conc. 31.7 g/dL (32.0-36.0); Red Blood Cells 3.23 10^6/uL (4.0-5.20); Red Cell Distribution Width 16.9 % (11.8-14.3); White Blood Cell 25.4 10^3/uL (4.4-10.8)
[2021-10-16] MEDS: ENOXAPARIN SOD 40 MG/0.4 ML SYRINGE SC SCH (10:00)
[2021-10-16] MEDS: SODIUM CHLOR 0.9% PF (SALINE LOCK) 10ML VIAL/SYR IV SCH ×2 (10:00→20:59)
[2021-10-16] MEDS: PANTOPRAZOLE 40 MG/10 ML VIAL INJ IV SCH (10:00)
[2021-10-16] MEDS: MUPIROCIN 2% OINT 15gm or 22gm TOP SCH ×2 (10:00→21:00)
[2021-10-16 10:03] LABS: Basophils % (manual) 0 (0.0-2.0); Blast Cells 0; Eosinophils % (manual) 0 (0-7); Metamyelocytes % 0; Myelocytes % 0; Promyelocytes % 0; Reactive Lymphocytes 0
[2021-10-16 10:45] LABS: Band Neutrophils % (manual) 57; Lymphocytes % (manual) 1 (10.0-50.0); Monocytes % (manual) 4 (0-12)
[2021-10-16] MEDS ORDERED: NOREPINEPHRINE 8 MG/250ML KIT 250 ML IV ONE (10:53)
[2021-10-16] MEDS: NOREPINEPHRINE 8 MG/250ML KIT 250 ML IV SCH (11:50)
[2021-10-16] MEDS ORDERED: cefTRIAXone 1GM/50ML D5W 50 ML IV ONE (15:00)
[2021-10-16] MEDS ORDERED: LIDOCAINE 1% (LOCAL ANESTH.) PF 5ml SDV ID ONE (18:00)
[2021-10-16] MEDS: MEROPENEM 1GM IVPB 100 ML IV SCH (19:00)
[2021-10-16] MEDS ORDERED: TPN PER PHARMACY IV NR ×8 (20:00)
[2021-10-16] MEDS ORDERED: VANCOMYCIN 1GM/250ML 250 ML IV SCH (22:00)
[2021-10-17] VITALS (72 sets, daily range): BP systolic 79–144; BP diastolic 36–101
[2021-10-17] MEDS: HYDROmorphone HCL 2 MG/ML VL/or syr IV PRN ×4 (03:02→23:08)
[2021-10-17] MEDS: NOREPINEPHRINE 8 MG/250ML KIT 250 ML IV SCH (03:15)
[2021-10-17] MEDS: MEROPENEM 1GM IVPB 100 ML IV SCH ×3 (03:39→18:30)
[2021-10-17 05:18] LABS: Basophils # (auto) 0.1 10 ^3/uL (0-0.2); Basophils % (auto) 0.7 % (0.0-2.0); Eosinophils # (auto) 0.4 10 ^3/uL (0-0.8); Eosinophils % (auto) 2.3 % (0.0-7.0); Hematocrit 29.7 % (36.0-46.0); Hemoglobin 9.6 g/dL (12.2-16.2); Lymphocytes # (auto) 1.5 10 ^3/uL (0.4-5.4); Lymphocytes % (auto) 9.2 % (10.0-50.0); Mean Corpuscular Hemoglobin 28.9 pg (28.0-32.0); Mean Corpuscular Hgb Conc. 32.2 g/dL (32.0-36.0); Mean Corpuscular Volume 89.6 fL (80.0-100.0); Monocytes # (auto) 0.8 10 ^3/uL (0-1.3); Monocytes % (auto) 5.4 % (0.0-12.0); Neutrophils # (auto) 12.9 10 ^3/uL (1.6-8.6); Neutrophils % (auto) 82.4 % (37.0-80.0); Nucleated Red Blood Cells % 0.1 %; Red Blood Cells 3.32 10^6/uL (4.0-5.20); Red Cell Distribution Width 16.7 % (11.8-14.3); White Blood Cell 15.7 10^3/uL (4.4-10.8)
[2021-10-17 05:48] LABS: Albumin 1.6 g/dL (3.4-5.0); BUN/Creatinine Ratio 42.9; Calcium 7.8 mg/dL (8.5-10.1); Magnesium 2.2 mg/dL (1.6-2.6)
[2021-10-17] MEDS: ACCU-CHEK COMFORT CURVE STRIP VI SCH ×4 (05:50→23:24)
[2021-10-17] MEDS: InsuLIN REG 1unit/0.01ml Soln (100units/ml) SC SCH ×4 (05:50→23:24)
[2021-10-17 05:51] LABS: Bilirubin, Total 0.5 mg/dL (0.2-1.0); Phosphorus 3.1 mg/dL (2.5-4.90); Total Protein 6.1 g/dL (6.4-8.2)
[2021-10-17] MEDS ORDERED: cefTRIAXone 1GM/50ML D5W 50 ML IV SCH (09:00)
[2021-10-17] MEDS: PANTOPRAZOLE 40 MG/10 ML VIAL INJ IV SCH (09:52)
[2021-10-17] MEDS: ENOXAPARIN SOD 40 MG/0.4 ML SYRINGE SC SCH (09:53)
[2021-10-17] MEDS: MUPIROCIN 2% OINT 15gm or 22gm TOP SCH ×2 (09:53→21:43)
[2021-10-17] MEDS: SODIUM CHLOR 0.9% PF (SALINE LOCK) 10ML VIAL/SYR IV SCH ×2 (09:53→21:43)
[2021-10-17] MEDS ORDERED: TPN PER PHARMACY 0 ML IV SCH (10:45)
[2021-10-17] MEDS ORDERED: InsuLIN REG 1unit/0.01ml Soln (100units/ml) ONE (11:24)
[2021-10-17] MEDS ORDERED: VANCOMYCIN 1GM/250ML 250 ML IV SCH (13:00)
[2021-10-17] MEDS ORDERED: TPN PER PHARMACY IV NR ×7 (20:00)
[2021-10-18] VITALS (27 sets, daily range): BP systolic 83–119; BP diastolic 44–57
[2021-10-18] MEDS: VANCOMYCIN 1GM/250ML 250 ML IV SCH ×2 (01:12→16:25)
[2021-10-18] MEDS: MEROPENEM 1GM IVPB 100 ML IV SCH ×3 (03:01→18:41)
[2021-10-18] MEDS: NOREPINEPHRINE 8 MG/250ML KIT 250 ML IV SCH (03:03)
[2021-10-18] MEDS: InsuLIN REG 1unit/0.01ml Soln (100units/ml) SC SCH ×4 (06:00→23:40)
[2021-10-18] MEDS: ACCU-CHEK COMFORT CURVE STRIP VI SCH ×4 (06:00→23:39)
[2021-10-18 06:06] LABS: Albumin 1.4 g/dL (3.4-5.0); BUN/Creatinine Ratio 72.7; Bilirubin, Total 0.4 mg/dL (0.2-1.0); Magnesium 1.8 mg/dL (1.6-2.6); Phosphorus 4.2 mg/dL (2.5-4.90); Total Protein 5.2 g/dL (6.4-8.2)
[2021-10-18] MEDS: HYDROmorphone HCL 2 MG/ML VL/or syr IV PRN ×3 (06:32→23:00)
[2021-10-18] MEDS ORDERED: BISACODYL 10 MG RECT SUPP PR PRN (09:45)
[2021-10-18] MEDS: PANTOPRAZOLE 40 MG/10 ML VIAL INJ IV SCH (10:19)
[2021-10-18] MEDS: ENOXAPARIN SOD 40 MG/0.4 ML SYRINGE SC SCH (10:20)
[2021-10-18] MEDS: MUPIROCIN 2% OINT 15gm or 22gm TOP SCH ×2 (10:20→22:59)
[2021-10-18] MEDS: SODIUM CHLOR 0.9% PF (SALINE LOCK) 10ML VIAL/SYR IV SCH ×2 (10:20→22:59)
[2021-10-18] MEDS: POTASSIUM CHL 20MEQ/100ML 100 ML IV SCH ×2 (13:14→14:55)
[2021-10-18] MEDS ORDERED: TPN PER PHARMACY IV NR ×8 (20:00)
[2021-10-19] VITALS (20 sets, daily range): BP systolic 93–125; BP diastolic 51–70
[2021-10-19] MEDS: MEROPENEM 1GM IVPB 100 ML IV SCH ×3 (03:02→22:04)
[2021-10-19] MEDS: NOREPINEPHRINE 8 MG/250ML KIT 250 ML IV SCH (03:15)
[2021-10-19] MEDS: HYDROmorphone HCL 2 MG/ML VL/or syr IV PRN ×3 (04:00→15:19)
[2021-10-19 05:01] LABS: Albumin 1.7 g/dL (3.4-5.0); Magnesium 1.8 mg/dL (1.6-2.6)
[2021-10-19 05:05] LABS: BUN/Creatinine Ratio 56.6; Bilirubin, Total 0.6 mg/dL (0.2-1.0); Phosphorus 2.5 mg/dL (2.5-4.90); Total Protein 6.5 g/dL (6.4-8.2)
[2021-10-19] MEDS: ACCU-CHEK COMFORT CURVE STRIP VI SCH ×3 (06:00→18:00)
[2021-10-19] MEDS: InsuLIN REG 1unit/0.01ml Soln (100units/ml) SC SCH ×3 (06:00→18:00)
[2021-10-19] MEDS: VANCOMYCIN 1GM/250ML 250 ML IV SCH (06:11)
[2021-10-19 09:18] LABS: Basophils # (auto) 0 10 ^3/uL (0-0.2); Basophils % (auto) 0.5 % (0.0-2.0); Eosinophils # (auto) 0.2 10 ^3/uL (0-0.8); Eosinophils % (auto) 1.5 % (0.0-7.0); Hematocrit 33.3 % (36.0-46.0); Hemoglobin 10.5 g/dL (12.2-16.2); Lymphocytes # (auto) 1.7 10 ^3/uL (0.4-5.4); Mean Corpuscular Hemoglobin 29.2 pg (28.0-32.0); Mean Corpuscular Hgb Conc. 31.5 g/dL (32.0-36.0); Mean Corpuscular Volume 92.5 fL (80.0-100.0); Monocytes # (auto) 1.1 10 ^3/uL (0-1.3); Monocytes % (auto) 10.3 % (0.0-12.0); Neutrophils # (auto) 7.2 10 ^3/uL (1.6-8.6); Neutrophils % (auto) 70.7 % (37.0-80.0); Nucleated Red Blood Cells % 0.3 %; Red Cell Distribution Width 17.2 % (11.8-14.3); White Blood Cell 10.2 10^3/uL (4.4-10.8)
[2021-10-19] MEDS: SODIUM CHLOR 0.9% PF (SALINE LOCK) 10ML VIAL/SYR IV SCH ×2 (10:18→22:04)
[2021-10-19] MEDS: PANTOPRAZOLE 40 MG/10 ML VIAL INJ IV SCH (10:18)
[2021-10-19] MEDS: ENOXAPARIN SOD 40 MG/0.4 ML SYRINGE SC SCH (10:18)
[2021-10-19] MEDS: MUPIROCIN 2% OINT 15gm or 22gm TOP SCH (10:18)
[2021-10-19] MEDS ORDERED: LORazepam 2MG/ML-1ML VIAL IV PRN (18:30)
[2021-10-19] MEDS: TPN PER PHARMACY IV NR ×9 (22:09)
[2021-10-20] VITALS (25 sets, daily range): BP systolic 93–147; BP diastolic 50–76
[2021-10-20] MEDS: HYDROmorphone HCL 2 MG/ML VL/or syr IV PRN ×2 (00:59→11:51)
[2021-10-20] MEDS: NOREPINEPHRINE 8 MG/250ML KIT 250 ML IV SCH (03:15)
[2021-10-20] MEDS: InsuLIN REG 1unit/0.01ml Soln (100units/ml) SC SCH ×4 (06:00→17:57)
[2021-10-20] MEDS: VANCOMYCIN 1GM/250ML 250 ML IV SCH (06:00)
[2021-10-20] MEDS: MEROPENEM 1GM IVPB 100 ML IV SCH ×3 (06:00→22:10)
[2021-10-20] MEDS: ACCU-CHEK COMFORT CURVE STRIP VI SCH ×4 (06:00→17:57)
[2021-10-20 06:22] LABS: Potassium 3.7 mmol/L (3.5-5.1)
[2021-10-20 06:33] LABS: Albumin 1.6 g/dL (3.4-5.0); BUN/Creatinine Ratio 77.3; Bilirubin, Total 0.7 mg/dL (0.2-1.0); Calcium 7.8 mg/dL (8.5-10.1); Magnesium 2.2 mg/dL (1.6-2.6); Phosphorus 2.8 mg/dL (2.5-4.90); Total Protein 6.4 g/dL (6.4-8.2)
[2021-10-20] MEDS: ENOXAPARIN SOD 40 MG/0.4 ML SYRINGE SC SCH (10:00)
[2021-10-20] MEDS: SODIUM CHLOR 0.9% PF (SALINE LOCK) 10ML VIAL/SYR IV SCH ×2 (10:00→22:29)
[2021-10-20] MEDS: PANTOPRAZOLE 40 MG/10 ML VIAL INJ IV SCH (10:46)
[2021-10-20] MEDS: TPN PER PHARMACY IV NR ×9 (19:54)
[2021-10-20] MEDS ORDERED: TPN PER PHARMACY IV NR ×9 (20:00)
[2021-10-21] VITALS (17 sets, daily range): BP systolic 99–129; BP diastolic 48–60
[2021-10-21] MEDS: NOREPINEPHRINE 8 MG/250ML KIT 250 ML IV SCH (03:15)
[2021-10-21] MEDS: MEROPENEM 1GM IVPB 100 ML IV SCH ×3 (04:27→20:21)
[2021-10-21 05:50] LABS: Potassium 3.6 mmol/L (3.5-5.1)
[2021-10-21 05:58] LABS: Albumin 1.5 g/dL (3.4-5.0); Bilirubin, Total 0.9 mg/dL (0.2-1.0); Calcium 7.6 mg/dL (8.5-10.1); Magnesium 2.2 mg/dL (1.6-2.6); Phosphorus 2.8 mg/dL (2.5-4.90)
[2021-10-21] MEDS: InsuLIN REG 1unit/0.01ml Soln (100units/ml) SC SCH ×4 (06:00→18:00)
[2021-10-21] MEDS: ACCU-CHEK COMFORT CURVE STRIP VI SCH ×4 (06:08→18:00)
[2021-10-21] MEDS: VANCOMYCIN 1GM/250ML 250 ML IV SCH (06:59)
[2021-10-21] MEDS: HYDROmorphone HCL 2 MG/ML VL/or syr IV PRN ×3 (07:46→20:24)
[2021-10-21 08:52] LABS: Basophils # (auto) 0.1 10 ^3/uL (0-0.2); Basophils % (auto) 0.8 % (0.0-2.0); Eosinophils # (auto) 0.3 10 ^3/uL (0-0.8); Eosinophils % (auto) 3.4 % (0.0-7.0); Hemoglobin 8.6 g/dL (12.2-16.2); Lymphocytes # (auto) 1.8 10 ^3/uL (0.4-5.4); Lymphocytes % (auto) 19.2 % (10.0-50.0); Mean Corpuscular Hemoglobin 29.5 pg (28.0-32.0); Mean Corpuscular Hgb Conc. 33.2 g/dL (32.0-36.0); Mean Corpuscular Volume 88.6 fL (80.0-100.0); Monocytes # (auto) 0.9 10 ^3/uL (0-1.3); Monocytes % (auto) 9.4 % (0.0-12.0); Neutrophils # (auto) 6.1 10 ^3/uL (1.6-8.6); Neutrophils % (auto) 67.2 % (37.0-80.0); Nucleated Red Blood Cells % 0.1 %; Red Blood Cells 2.93 10^6/uL (4.0-5.20); Red Cell Distribution Width 16.6 % (11.8-14.3); White Blood Cell 9.1 10^3/uL (4.4-10.8)
[2021-10-21] MEDS: SODIUM CHLOR 0.9% PF (SALINE LOCK) 10ML VIAL/SYR IV SCH ×2 (10:00→22:10)
[2021-10-21] MEDS: ENOXAPARIN SOD 40 MG/0.4 ML SYRINGE SC SCH (10:57)
[2021-10-21] MEDS: PANTOPRAZOLE 40 MG/10 ML VIAL INJ IV SCH (10:57)
[2021-10-21] MEDS ORDERED: fentaNYL 50MCG/HR 50 MCG/HR PAT TD SCH (12:15)
[2021-10-21] MEDS ORDERED: TPN PER PHARMACY IV NR ×9 (20:00)
[2021-10-22] VITALS (24 sets, daily range): BP systolic 106–128; BP diastolic 51–63
[2021-10-22] MEDS: ACCU-CHEK COMFORT CURVE STRIP VI SCH ×4 (00:16→18:16)
[2021-10-22] MEDS: HYDROmorphone HCL 2 MG/ML VL/or syr IV PRN ×3 (00:40→13:33)
[2021-10-22] MEDS: MEROPENEM 1GM IVPB 100 ML IV SCH ×3 (03:14→18:16)
[2021-10-22] MEDS: InsuLIN REG 1unit/0.01ml Soln (100units/ml) SC SCH ×4 (05:38→18:00)
[2021-10-22] MEDS: VANCOMYCIN 1GM/250ML 250 ML IV SCH (05:38)
[2021-10-22 07:29] LABS: Albumin 1.5 g/dL (3.4-5.0); Calcium 7.6 mg/dL (8.5-10.1); Potassium 3.6 mmol/L (3.5-5.1)
[2021-10-22 07:32] LABS: BUN/Creatinine Ratio 87.9; Bilirubin, Total 0.7 mg/dL (0.2-1.0); Phosphorus 2.8 mg/dL (2.5-4.90)
[2021-10-22] MEDS: NOREPINEPHRINE 8 MG/250ML KIT 250 ML IV SCH (08:04)
[2021-10-22] MEDS: PANTOPRAZOLE 40 MG/10 ML VIAL INJ IV SCH (10:09)
[2021-10-22] MEDS: SODIUM CHLOR 0.9% PF (SALINE LOCK) 10ML VIAL/SYR IV SCH ×2 (10:10→22:45)
[2021-10-22] MEDS: ENOXAPARIN SOD 40 MG/0.4 ML SYRINGE SC SCH (10:10)
[2021-10-22] MEDS: fentaNYL 25MCG/HR 25 MCG/HR PAT TD SCH (18:27)
[2021-10-22] MEDS ORDERED: TPN PER PHARMACY IV NR ×9 (20:00)
[2021-10-23] MEDS: ACCU-CHEK COMFORT CURVE STRIP VI SCH ×4 (00:52→17:31)
[2021-10-23 03:00] VITALS: BP 106/60
[2021-10-23] MEDS: MEROPENEM 1GM IVPB 100 ML IV SCH ×3 (03:00→18:31)
[2021-10-23] MEDS: NOREPINEPHRINE 8 MG/250ML KIT 250 ML IV SCH (03:15)
[2021-10-23 04:00] VITALS: BP 117/60
[2021-10-23 05:00] VITALS: BP 120/67
[2021-10-23 05:15] LABS: Basophils # (auto) 0.1 10 ^3/uL (0-0.2); Basophils % (auto) 0.7 % (0.0-2.0); Eosinophils # (auto) 0.1 10 ^3/uL (0-0.8); Eosinophils % (auto) 1.5 % (0.0-7.0); Hematocrit 26.6 % (36.0-46.0); Hemoglobin 9.2 g/dL (12.2-16.2); Lymphocytes # (auto) 1.2 10 ^3/uL (0.4-5.4); Lymphocytes % (auto) 13.2 % (10.0-50.0); Mean Corpuscular Hgb Conc. 34.4 g/dL (32.0-36.0); Mean Corpuscular Volume 87.2 fL (80.0-100.0); Monocytes # (auto) 0.4 10 ^3/uL (0-1.3); Monocytes % (auto) 4.6 % (0.0-12.0); Nucleated Red Blood Cells % 0.1 %; Red Blood Cells 3.05 10^6/uL (4.0-5.20); Red Cell Distribution Width 17.4 % (11.8-14.3); White Blood Cell 8.8 10^3/uL (4.4-10.8)
[2021-10-23 05:31] LABS: Potassium 4.1 mmol/L (3.5-5.1)
[2021-10-23 05:43] LABS: Albumin 1.5 g/dL (3.4-5.0); BUN/Creatinine Ratio 63.4; Bilirubin, Total 0.6 mg/dL (0.2-1.0); Calcium 7.7 mg/dL (8.5-10.1); Magnesium 1.9 mg/dL (1.6-2.6); Phosphorus 3.1 mg/dL (2.5-4.90); Total Protein 6.2 g/dL (6.4-8.2)
[2021-10-23] MEDS: InsuLIN REG 1unit/0.01ml Soln (100units/ml) SC SCH ×4 (05:50→17:31)
[2021-10-23] MEDS: VANCOMYCIN 1GM/250ML 250 ML IV SCH (06:00)
[2021-10-23 08:29] VITALS: BP 120/67
[2021-10-23] MEDS: SODIUM CHLOR 0.9% PF (SALINE LOCK) 10ML VIAL/SYR IV SCH ×2 (10:00→22:32)
[2021-10-23] MEDS: PANTOPRAZOLE 40 MG/10 ML VIAL INJ IV SCH (10:00)
[2021-10-23 17:00] VITALS: BP 92/52
[2021-10-23] MEDS ORDERED: TPN PER PHARMACY IV NR ×10 (20:00)
[2021-10-23 22:00] VITALS: BP 110/58
[2021-10-24] MEDS: ACCU-CHEK COMFORT CURVE STRIP VI SCH ×4 (00:32→17:13)
[2021-10-24] MEDS: InsuLIN REG 1unit/0.01ml Soln (100units/ml) SC SCH ×4 (00:32→17:14)
[2021-10-24] MEDS: MEROPENEM 1GM IVPB 100 ML IV SCH ×3 (03:34→18:40)
[2021-10-24 06:00] VITALS: BP 132/65
[2021-10-24 06:07] LABS: Potassium 4.1 mmol/L (3.5-5.1)
[2021-10-24 06:19] LABS: Albumin 1.6 g/dL (3.4-5.0); BUN/Creatinine Ratio 56.1; Bilirubin, Total 0.6 mg/dL (0.2-1.0); Calcium 7.7 mg/dL (8.5-10.1); Magnesium 2.2 mg/dL (1.6-2.6); Phosphorus 2.9 mg/dL (2.5-4.90); Total Protein 6.6 g/dL (6.4-8.2)
[2021-10-24] MEDS: VANCOMYCIN 1GM/250ML 250 ML IV SCH (07:10)
[2021-10-24 09:00] VITALS: BP 101/59
[2021-10-24] MEDS: PANTOPRAZOLE 40 MG/10 ML VIAL INJ IV SCH (10:32)
[2021-10-24] MEDS: SODIUM CHLOR 0.9% PF (SALINE LOCK) 10ML VIAL/SYR IV SCH ×2 (10:32→22:25)
[2021-10-24] MEDS: HYDROmorphone HCL 2 MG/ML VL/or syr IV PRN (12:42)
[2021-10-24 13:00] VITALS: BP 100/66
[2021-10-24 17:00] VITALS: BP 97/60
[2021-10-24] MEDS ORDERED: TPN PER PHARMACY IV NR ×10 (20:00)
[2021-10-24 22:00] VITALS: BP 106/59
[2021-10-25] MEDS: ACCU-CHEK COMFORT CURVE STRIP VI SCH ×4 (00:45→18:00)
[2021-10-25] MEDS: InsuLIN REG 1unit/0.01ml Soln (100units/ml) SC SCH ×4 (00:48→18:00)
[2021-10-25] MEDS: VANCOMYCIN 1GM/250ML 250 ML IV SCH ×2 (02:19→22:06)
[2021-10-25] MEDS: MEROPENEM 1GM IVPB 100 ML IV SCH ×3 (03:49→20:04)
[2021-10-25 05:00] VITALS: BP 104/49
[2021-10-25 07:26] LABS: Albumin 1.5 g/dL (3.4-5.0); Calcium 7.5 mg/dL (8.5-10.1); Potassium 3.8 mmol/L (3.5-5.1)
[2021-10-25 07:29] LABS: BUN/Creatinine Ratio 70.3; Bilirubin, Total 0.6 mg/dL (0.2-1.0); Phosphorus 3.5 mg/dL (2.5-4.90); Total Protein 5.9 g/dL (6.4-8.2)
[2021-10-25 09:06] VITALS: BP 121/61
[2021-10-25] MEDS: PANTOPRAZOLE 40 MG/10 ML VIAL INJ IV SCH (10:00)
[2021-10-25] MEDS: SODIUM CHLOR 0.9% PF (SALINE LOCK) 10ML VIAL/SYR IV SCH ×2 (10:00→22:04)
[2021-10-25 13:00] VITALS: BP 102/54
[2021-10-25] MEDS: fentaNYL 25MCG/HR 25 MCG/HR PAT TD SCH (15:15)
[2021-10-25 17:00] VITALS: BP 90/54
[2021-10-25] MEDS ORDERED: TPN PER PHARMACY IV NR ×10 (20:00)
[2021-10-25 22:01] VITALS: BP 105/65
[2021-10-26] MEDS: ACCU-CHEK COMFORT CURVE STRIP VI SCH ×4 (03:26→18:30)
[2021-10-26] MEDS: InsuLIN REG 1unit/0.01ml Soln (100units/ml) SC SCH ×4 (03:26→18:30)
[2021-10-26] MEDS: MEROPENEM 1GM IVPB 100 ML IV SCH ×3 (03:26→20:01)
[2021-10-26 05:00] VITALS: BP 116/62
[2021-10-26 07:41] LABS: Albumin 1.6 g/dL (3.4-5.0); BUN/Creatinine Ratio 87.5; Bilirubin, Total 0.5 mg/dL (0.2-1.0); Calcium 7.6 mg/dL (8.5-10.1); Magnesium 2.4 mg/dL (1.6-2.6); Phosphorus 2.8 mg/dL (2.5-4.90); Total Protein 5.9 g/dL (6.4-8.2)
[2021-10-26 09:00] VITALS: BP 105/53
[2021-10-26 10:15] VITALS: BP 105/53
[2021-10-26] MEDS: PANTOPRAZOLE 40 MG/10 ML VIAL INJ IV SCH (10:40)
[2021-10-26] MEDS: SODIUM CHLOR 0.9% PF (SALINE LOCK) 10ML VIAL/SYR IV SCH ×2 (10:40→22:07)
[2021-10-26 13:00] VITALS: BP 99/50
[2021-10-26 17:27] VITALS: BP 93/60
[2021-10-26] MEDS: VANCOMYCIN 1GM/250ML 250 ML IV SCH (18:30)
[2021-10-26] MEDS ORDERED: TPN PER PHARMACY IV NR ×11 (20:00)
[2021-10-26 22:00] VITALS: BP 101/53
[2021-10-27] MEDS: ACCU-CHEK COMFORT CURVE STRIP VI SCH ×3 (00:11→11:53)
[2021-10-27] MEDS: MEROPENEM 1GM IVPB 100 ML IV SCH ×2 (03:08→11:36)
[2021-10-27 05:00] VITALS: BP 118/55
[2021-10-27] MEDS: InsuLIN REG 1unit/0.01ml Soln (100units/ml) SC SCH ×3 (06:00→11:52)
[2021-10-27 06:28] LABS: Potassium 4.7 mmol/L (3.5-5.1)
[2021-10-27 06:45] LABS: Albumin 1.5 g/dL (3.4-5.0); BUN/Creatinine Ratio 83.3; Bilirubin, Total 0.5 mg/dL (0.2-1.0); Calcium 7.5 mg/dL (8.5-10.1); Magnesium 2.4 mg/dL (1.6-2.6); Phosphorus 2.8 mg/dL (2.5-4.90); Total Protein 5.7 g/dL (6.4-8.2)
[2021-10-27 08:00] VITALS: BP 103/52
[2021-10-27] MEDS: PANTOPRAZOLE 40 MG/10 ML VIAL INJ IV SCH (09:38)
[2021-10-27] MEDS: SODIUM CHLOR 0.9% PF (SALINE LOCK) 10ML VIAL/SYR IV SCH (09:39)
[2021-10-27 12:59] VITALS: BP 90/52
[2021-10-27] MEDS: VANCOMYCIN 1GM/250ML 250 ML IV SCH (14:14)
[2021-10-27 16:00] VITALS: BP 105/81
[2021-10-27 16:48] VITALS: BP 103/61
[2021-10-27] MEDS ORDERED: TPN PER PHARMACY IV NR ×11 (20:00)
== END 2021-10-27 17:30 | disposition home health service (06) | DRG 393 ==
LOC: ER 12:50 → EDBD 12:50 → TELE 19:16 → TELE-EAST 21:43 → DOU IN ICU 10-13 16:11 → ICU CENTRL 10-17 05:19 → DOU IN ICU 10-18 20:42 → TELE-WESTW 10-23 10:50
PROVIDERS: ADMIT Registered Nurse; ATTEND Internal Medicine
PROC: 05HB33Z Insertion of Infusion Device into Right Basilic Vein, Percutaneous Approach (ICD-10-PCS; principal; 2021-10-10)
PROC: B54MZZA Ultrasonography of Right Upper Extremity Veins, Guidance (ICD-10-PCS; 2021-10-10)
PROC: B54MZZA Ultrasonography of Right Upper Extremity Veins, Guidance (ICD-10-PCS; 2021-10-13)
PROC: 05HY33Z Insertion of Infusion Device into Upper Vein, Percutaneous Approach (ICD-10-PCS; 2021-10-13)
PROC: B54MZZA Ultrasonography of Right Upper Extremity Veins, Guidance (ICD-10-PCS; 2021-10-16)
PROC: 05HY33Z Insertion of Infusion Device into Upper Vein, Percutaneous Approach (ICD-10-PCS; 2021-10-16)
DX: K94.23 Gastrostomy malfunction (principal); A41.9 Sepsis, unspecified organism; J69.0 Pneumonitis due to inhalation of food and vomit; G92.8 Other toxic encephalopathy; J96.01 Acute respiratory failure with hypoxia; E46 Unspecified protein-calorie malnutrition; J44.0 Chronic obstructive pulmonary disease with (acute) lower respiratory infection; N39.0 Urinary tract infection, site not specified; I48.20 Chronic atrial fibrillation, unspecified; L03.311 Cellulitis of abdominal wall; I69.354 Hemiplegia and hemiparesis following cerebral infarction affecting left non-dominant side; R53.81 Other malaise; G47.33 Obstructive sleep apnea (adult) (pediatric); Z20.822 Contact with and (suspected) exposure to COVID-19; E11.9 Type 2 diabetes mellitus without complications; L89.152 Pressure ulcer of sacral region, stage 2; E87.6 Hypokalemia; G40.909 Epilepsy, unspecified, not intractable, without status epilepticus; E78.5 Hyperlipidemia, unspecified; R74.01 Elevation of levels of liver transaminase levels; E66.9 Obesity, unspecified; K21.9 Gastro-esophageal reflux disease without esophagitis; K56.41 Fecal impaction; M19.90 Unspecified osteoarthritis, unspecified site; E03.9 Hypothyroidism, unspecified; I10 Essential (primary) hypertension; Z68.36 Body mass index [BMI] 36.0-36.9, adult; Z79.899 Other long term (current) drug therapy; Z88.0 Allergy status to penicillin; Z88.1 Allergy status to other antibiotic agents
CPT/HCPCS: 31720; 36415; 36569; 36600; 51702; 70450; 71045; 74176; 80053; 80185; 80202; 81001; 82140; 82542; 82805; 82962; 83605; 83735; 83880; 84100; 84132; 84439; 84443; 84478; 84484; 85007; 85025; 85027; 85610; 85730; 87040; 87077; 87081; 87086; 87088; 87186; 87205; 92610; 93005; 93886; 93971; 94640; 96365; 96367; 96375; 97163; 99291; C9113; G0378; J1815; J1956; J2185; J2405; J3480; J3490; J7060

== ENCOUNTER 2021-12-23 13:42 | Emergency (ER) | payer OTHER, MEDICAID ==
[~2021-12-23] VITALS: Ht 172.7 cm; Wt 81.6 kg
[2021-12-23 19:20] LABS: Basophils # (auto) 0 10 ^3/uL (0-0.2); Basophils % (auto) 0.6 % (0.0-2.0); Eosinophils # (auto) 0.2 10 ^3/uL (0-0.8); Hemoglobin 11.9 g/dL (12.2-16.2); Lymphocytes # (auto) 2.4 10 ^3/uL (0.4-5.4); Lymphocytes % (auto) 31.2 % (10.0-50.0); Mean Corpuscular Hemoglobin 25.1 pg (28.0-32.0); Mean Corpuscular Hgb Conc. 31.3 g/dL (32.0-36.0); Mean Corpuscular Volume 80.4 fL (80.0-100.0); Monocytes # (auto) 0.6 10 ^3/uL (0-1.3); Monocytes % (auto) 8.4 % (0.0-12.0); Neutrophils # (auto) 4.3 10 ^3/uL (1.6-8.6); Neutrophils % (auto) 56.8 % (37.0-80.0); Nucleated Red Blood Cells % 0.1 %; Red Blood Cells 4.72 10^6/uL (4.0-5.20); Red Cell Distribution Width 16.8 % (11.8-14.3); White Blood Cell 7.6 10^3/uL (4.4-10.8)
[2021-12-23 19:46] LABS: Albumin 2.7 g/dL (3.4-5.0); Calcium 9.2 mg/dL (8.5-10.1); Potassium 3.7 mmol/L (3.5-5.1)
[2021-12-23 19:49] LABS: BUN/Creatinine Ratio 44.3; Bilirubin, Total 0.5 mg/dL (0.2-1.0); Total Protein 7.6 g/dL (6.4-8.2)
[2021-12-23 20:02] LABS: INR 1.12 (0.9-1.15); Partial Thromboplastin Time 28.5 sec (23.6-33.0)
[2021-12-23] MEDS ORDERED: LIDOCAINE 1% (LOCAL ANESTH.) PF 5ml SDV ID ONE (23:30)
[2021-12-24] MEDS: IBUPROFEN 600 MG TAB PO PRN ×2 (00:12→01:33)
[2021-12-24] MEDS ORDERED: HALOPERIDOL LACTATE 5 MG/ML INJ VIAL IM ONE (00:30)
[2021-12-24] MEDS ORDERED: HALOPERIDOL LACTATE 5 MG/ML INJ VIAL IV PRN (00:30)
[2021-12-24] MEDS ORDERED: LORazepam 2MG/ML-1ML VIAL IV ONE ×2 (00:30→01:15)
[2021-12-24] MEDS ORDERED: HALOPERIDOL LACTATE 5 MG/ML INJ VIAL ONE (00:37)
[2021-12-24] MEDS ORDERED: diphenhdrAMINE HCL 50 MG/1 ML VL IV ONE (01:15)
[2021-12-24] MEDS ORDERED: SODIUM CHLOR 0.9% PF (SALINE LOCK) 10ML VIAL/SYR IV SCH (10:00)
[2021-12-24 15:24] VITALS: BP 104/59
== END 2021-12-24 15:55 | disposition home or self-care (01) ==
LOC: EDBD 13:42 → ER 13:42
DX: K21.9 Gastro-esophageal reflux disease without esophagitis (principal); E78.5 Hyperlipidemia, unspecified; I10 Essential (primary) hypertension; Z45.2 Encounter for adjustment and management of vascular access device; Z86.73 Personal history of transient ischemic attack (TIA), and cerebral infarction without residual deficits; Z88.0 Allergy status to penicillin; Z88.1 Allergy status to other antibiotic agents
CPT/HCPCS: 36415; 36569; 71045; 80053; 85025; 85610; 85730; 93005; 96365; 96375; 96376; 99285; C1751; J1200; J1630; J1953; J2060; J7050; J7060

== ENCOUNTER 2022-01-13 13:17 | Inpatient (IN) | payer OTHER, MEDICAID ==
[~2022-01-13] VITALS: Ht 165.1 cm; Wt 100.7 kg
[2022-01-13] MEDS ORDERED: SODIUM CHLORIDE 0.9% 1,000 ML IV ONE (13:30)
[2022-01-13 14:38] LABS: Albumin 3.1 g/dL (3.4-5.0); Calcium 9.1 mg/dL (8.5-10.1)
[2022-01-13 14:41] LABS: BUN/Creatinine Ratio 50.9
[2022-01-13 14:43] LABS: Bilirubin, Total 0.4 mg/dL (0.2-1.0); Total Protein 7.2 g/dL (6.4-8.2)
[2022-01-13 14:45] LABS: Basophils # (auto) 0 10 ^3/uL (0-0.2); Eosinophils # (auto) 0.2 10 ^3/uL (0-0.8); Lymphocytes # (auto) 1.2 10 ^3/uL (0.4-5.4); Monocytes # (auto) 0.4 10 ^3/uL (0-1.3); Neutrophils # (auto) 4.2 10 ^3/uL (1.6-8.6)
[2022-01-13 14:50] LABS: Basophils % (auto) 0.5 % (0.0-2.0); Eosinophils % (auto) 3.4 % (0.0-7.0); Hematocrit 37.4 % (36.0-46.0); Hemoglobin 12.1 g/dL (12.2-16.2); Lymphocytes % (auto) 19.9 % (10.0-50.0); Mean Corpuscular Hemoglobin 25.3 pg (28.0-32.0); Mean Corpuscular Hgb Conc. 32.4 g/dL (32.0-36.0); Mean Corpuscular Volume 78.1 fL (80.0-100.0); Neutrophils % (auto) 70.2 % (37.0-80.0); Nucleated Red Blood Cells % 0.3 %; Red Blood Cells 4.79 10^6/uL (4.0-5.20); Red Cell Distribution Width 16.2 % (11.8-14.3); White Blood Cell 5.9 10^3/uL (4.4-10.8)
[2022-01-13] MEDS ORDERED: AZITHROMYCIN 500MG/ 250ML 250 ML IV ONE (16:00)
[2022-01-13] MEDS ORDERED: cefTRIAXone 1GM/50ML D5W 50 ML IV ONE (16:00)
[2022-01-13] MEDS ORDERED: LEVE500T32 PO (16:03)
[2022-01-13 16:12] LABS: Urine Bacteria FEW /hpf (None Seen); Urine Blood Negative /uL (Negative); Urine Budding Yeast FEW /hpf (None Seen); Urine Hyaline Cast FEW /lpf (0 - 2); Urine Mucus FEW (None Seen); Urine Specific Gravity 1.022 (1.001-1.035); Urine WBC 137 /hpf (0 - 5)
[2022-01-13] MEDS ORDERED: MORPHINE SULFATE INJ 2 MG/ml SYRG IV PRN (17:15)
[2022-01-13] MEDS ORDERED: ONDANSETRON HCL 4 MG/2 ML VIAL IV PRN (17:15)
[2022-01-13] MEDS ORDERED: LORazepam 2MG/ML-1ML VIAL IV PRN (21:45)
[2022-01-13] MEDS ORDERED: levETIRAcetam 500 MG/5ML INJ IV ONE (21:51)
[2022-01-14 05:17] LABS: Basophils # (auto) 0 10 ^3/uL (0-0.2); Eosinophils # (auto) 0.2 10 ^3/uL (0-0.8); Hemoglobin 10.7 g/dL (12.2-16.2); Lymphocytes # (auto) 1.9 10 ^3/uL (0.4-5.4); Red Cell Distribution Width 16.2 % (11.8-14.3); White Blood Cell 5.7 10^3/uL (4.4-10.8)
[2022-01-14 05:27] LABS: Basophils % (auto) 0.5 % (0.0-2.0); Eosinophils % (auto) 3.7 % (0.0-7.0); Hematocrit 34.4 % (36.0-46.0); Lymphocytes % (auto) 34.2 % (10.0-50.0); Mean Corpuscular Hemoglobin 24.4 pg (28.0-32.0); Mean Corpuscular Volume 78.6 fL (80.0-100.0); Monocytes # (auto) 0.6 10 ^3/uL (0-1.3); Monocytes % (auto) 9.7 % (0.0-12.0); Neutrophils % (auto) 51.9 % (37.0-80.0); Red Blood Cells 4.37 10^6/uL (4.0-5.20)
[2022-01-14 05:33] LABS: Albumin 2.4 g/dL (3.4-5.0); Calcium 8.2 mg/dL (8.5-10.1); Potassium 3.3 mmol/L (3.5-5.1)
[2022-01-14 05:37] LABS: BUN/Creatinine Ratio 40.8; Bilirubin, Total 0.6 mg/dL (0.2-1.0); Total Protein 6.1 g/dL (6.4-8.2)
[2022-01-14 09:00] VITALS: BP 90/51
[2022-01-14] MEDS ORDERED: cefTRIAXone 1GM/50ML D5W 50 ML IV SCH (10:00)
[2022-01-14] MEDS: ENOXAPARIN SOD 40 MG/0.4 ML SYRINGE SC SCH (10:29)
[2022-01-14 11:05] VITALS: BP 90/51
[2022-01-14 13:00] VITALS: BP 98/58
[2022-01-14] MEDS ORDERED: levoFLOXacin 250MG 50 ML IV ONE (14:15)
[2022-01-14] MEDS ORDERED: POTASSIUM CHL 20MEQ/100ML 100 ML IV ONE (14:15)
[2022-01-14] MEDS ORDERED: SODIUM CHLORIDE 0.9% 1,000 ML IV ONE (14:15)
[2022-01-14] MEDS: SODIUM CHLORIDE 0.9% 1,000 ML IV SCH (15:56)
[2022-01-14 16:50] VITALS: BP 108/57
[2022-01-14 22:37] VITALS: BP 95/46
[2022-01-15 05:20] VITALS: BP 102/49
[2022-01-15] MEDS: SODIUM CHLORIDE 0.9% 1,000 ML IV SCH ×3 (05:29→15:24)
[2022-01-15 06:16] LABS: Basophils # (auto) 0 10 ^3/uL (0-0.2); Basophils % (auto) 0.7 % (0.0-2.0); Eosinophils # (auto) 0.2 10 ^3/uL (0-0.8); Lymphocytes # (auto) 1.4 10 ^3/uL (0.4-5.4); Mean Corpuscular Hgb Conc. 31.5 g/dL (32.0-36.0); Monocytes # (auto) 0.5 10 ^3/uL (0-1.3); Neutrophils # (auto) 2.4 10 ^3/uL (1.6-8.6); Nucleated Red Blood Cells % 0.1 %; Red Blood Cells 4.38 10^6/uL (4.0-5.20); Red Cell Distribution Width 16.1 % (11.8-14.3)
[2022-01-15 06:20] LABS: Eosinophils % (auto) 4.8 % (0.0-7.0); Hemoglobin 10.7 g/dL (12.2-16.2); Lymphocytes % (auto) 31.5 % (10.0-50.0); Mean Corpuscular Hemoglobin 24.4 pg (28.0-32.0); Mean Corpuscular Volume 77.6 fL (80.0-100.0); Monocytes % (auto) 10.1 % (0.0-12.0); Neutrophils % (auto) 52.9 % (37.0-80.0); White Blood Cell 4.6 10^3/uL (4.4-10.8)
[2022-01-15 06:24] LABS: BUN/Creatinine Ratio 32.6; Calcium 8.5 mg/dL (8.5-10.1); Potassium 3.6 mmol/L (3.5-5.1)
[2022-01-15 09:15] VITALS: BP_SYST 102; BP_SYST 106; BP_DIAS 52; BP_DIAS 81
[2022-01-15] MEDS: ENOXAPARIN SOD 40 MG/0.4 ML SYRINGE SC SCH (09:21)
[2022-01-15] MEDS ORDERED: AZITHROMYCIN 500MG/ 250ML 250 ML IV SCH (10:00)
[2022-01-15 12:23] VITALS: BP 101/47
[2022-01-15] MEDS ORDERED: DEXTROSE (50%) 50ML SYRG IV PRN (15:45)
[2022-01-15 16:56] VITALS: BP 110/63
[2022-01-15] MEDS: ACCU-CHEK COMFORT CURVE STRIP VI SCH ×2 (17:07→23:30)
[2022-01-15] MEDS: InsuLIN REG 1unit/0.01ml Soln (100units/ml) SC SCH ×2 (17:08→23:43)
[2022-01-15 21:53] VITALS: BP 93/53
[2022-01-16 05:00] VITALS: BP 117/67
[2022-01-16] MEDS: InsuLIN REG 1unit/0.01ml Soln (100units/ml) SC SCH ×2 (06:00→11:46)
[2022-01-16] MEDS: ACCU-CHEK COMFORT CURVE STRIP VI SCH ×2 (06:38→11:46)
[2022-01-16] MEDS: SODIUM CHLORIDE 0.9% 1,000 ML IV SCH (06:38)
[2022-01-16 08:00] VITALS: BP 99/51
[2022-01-16] MEDS ORDERED: FOLIC ACID 1 MG TAB PO SCH (10:00)
[2022-01-16] MEDS ORDERED: PANTOPRAZOLE 40 MG TAB PO SCH (10:00)
[2022-01-16] MEDS ORDERED: CLOPIDOGREL BISULFATE 75 MG TAB PO SCH (10:00)
[2022-01-16] MEDS ORDERED: ATORVASTATIN 20 MG TAB PO SCH (10:00)
[2022-01-16] MEDS ORDERED: LEVOTHYROXINE SODIUM 50 MCG TAB PO SCH (10:00)
[2022-01-16] MEDS: ENOXAPARIN SOD 40 MG/0.4 ML SYRINGE SC SCH (10:36)
[2022-01-16 12:39] LABS: Basophils # (auto) 0 10 ^3/uL (0-0.2); Eosinophils # (auto) 0.2 10 ^3/uL (0-0.8); Hemoglobin 10.2 g/dL (12.2-16.2); Lymphocytes # (auto) 1.4 10 ^3/uL (0.4-5.4); Monocytes # (auto) 0.4 10 ^3/uL (0-1.3); Monocytes % (auto) 9.2 % (0.0-12.0); Neutrophils # (auto) 2.6 10 ^3/uL (1.6-8.6); White Blood Cell 4.6 10^3/uL (4.4-10.8)
[2022-01-16 12:40] LABS: Basophils % (auto) 0.4 % (0.0-2.0); Eosinophils % (auto) 3.8 % (0.0-7.0); Hematocrit 33.8 % (36.0-46.0); Lymphocytes % (auto) 30.3 % (10.0-50.0); Mean Corpuscular Hemoglobin 24.2 pg (28.0-32.0); Mean Corpuscular Hgb Conc. 30.2 g/dL (32.0-36.0); Neutrophils % (auto) 56.3 % (37.0-80.0); Nucleated Red Blood Cells % 0.2 %; Red Blood Cells 4.22 10^6/uL (4.0-5.20); Red Cell Distribution Width 16.1 % (11.8-14.3)
[2022-01-16 12:55] LABS: Calcium 8.6 mg/dL (8.5-10.1); Potassium 3.4 mmol/L (3.5-5.1)
[2022-01-16 12:57] LABS: BUN/Creatinine Ratio 24.3
[2022-01-16 13:00] VITALS: BP 91/45
[2022-01-16] MEDS ORDERED: LEVE500T32 PO (16:42)
== END 2022-01-16 18:42 | disposition home health service (06) | DRG 100 ==
LOC: EDBD 13:17 → ER 13:17 → OVERFLOW 17:01 → WEST WING 01-14 07:53 → TELE-WESTW 01-14 09:29
PROVIDERS: ADMIT Internal Medicine; ATTEND Internal Medicine
DX: G40.401 Other generalized epilepsy and epileptic syndromes, not intractable, with status epilepticus (principal); J18.9 Pneumonia, unspecified organism; E44.1 Mild protein-calorie malnutrition; N39.0 Urinary tract infection, site not specified; J44.0 Chronic obstructive pulmonary disease with (acute) lower respiratory infection; E03.9 Hypothyroidism, unspecified; Z20.822 Contact with and (suspected) exposure to COVID-19; E11.9 Type 2 diabetes mellitus without complications; E78.5 Hyperlipidemia, unspecified; E88.09 Other disorders of plasma-protein metabolism, not elsewhere classified; F17.200 Nicotine dependence, unspecified, uncomplicated; G47.30 Sleep apnea, unspecified; I10 Essential (primary) hypertension; I48.91 Unspecified atrial fibrillation; K21.9 Gastro-esophageal reflux disease without esophagitis; M06.9 Rheumatoid arthritis, unspecified; R09.02 Hypoxemia; E66.9 Obesity, unspecified; E87.6 Hypokalemia; I69.391 Dysphagia following cerebral infarction; Z93.1 Gastrostomy status; Z68.36 Body mass index [BMI] 36.0-36.9, adult; Z74.01 Bed confinement status; Z79.02 Long term (current) use of antithrombotics/antiplatelets; Z79.899 Other long term (current) drug therapy; Z82.49 Family history of ischemic heart disease and other diseases of the circulatory system; Z88.0 Allergy status to penicillin; Z90.710 Acquired absence of both cervix and uterus; Z88.8 Allergy status to other drugs, medicaments and biological substances; Z79.4 Long term (current) use of insulin
CPT/HCPCS: 36415; 70450; 71045; 80048; 80053; 81001; 82962; 84484; 85025; 87040; 87086; 92610; 96361; 96365; 96368; 97163; G0378; J0696; J3480; J7060

== ENCOUNTER 2023-05-04 12:58 | Inpatient (IN) | payer OTHER, MEDICAID ==
[~2023-05-04] VITALS: Ht 165.1 cm; Wt 65.0 kg
[~2023-05-04 12:58] MED LIST changes: +FOLI-119 PO; -FOLI1TAB6 PO; -LEVE500T32 PO; +LEVE500T40 PO
[2023-05-04 13:40] VITALS: PULSE 99; RESP 19; O2SAT 99
[2023-05-04 13:56] LABS: Eosinophils # (auto) 0.1 10 ^3/uL (0-0.8); Hemoglobin 7.4 g/dL (12.2-16.2); Lymphocytes # (auto) 2.8 10 ^3/uL (0.4-5.4); Monocytes # (auto) 1.2 10 ^3/uL (0-1.3); Monocytes % (auto) 7.2 % (0.0-12.0); Nucleated Red Blood Cells % 0.1 %; Red Cell Distribution Width 16.1 % (11.8-14.3)
[2023-05-04 13:58] LABS: Basophils # (auto) 0.1 10 ^3/uL (0-0.2); Basophils % (auto) 0.3 % (0.0-2.0); Eosinophils % (auto) 0.7 % (0.0-7.0); Hematocrit 23.8 % (36.0-46.0); Lymphocytes % (auto) 16.4 % (10.0-50.0); Mean Corpuscular Hemoglobin 25.8 pg (28.0-32.0); Mean Corpuscular Hgb Conc. 31.1 g/dL (32.0-36.0); Mean Corpuscular Volume 82.9 fL (80.0-100.0); Neutrophils # (auto) 12.8 10 ^3/uL (1.6-8.6); Neutrophils % (auto) 75.4 % (37.0-80.0); Red Blood Cells 2.87 10^6/uL (4.0-5.20)
[2023-05-04 14:16] LABS: Alanine Aminotransferase 14 U/L (7-40); Albumin 3.1 g/dL (3.2-4.8); Alkaline Phosphatase 77 U/L (46-116); Anion Gap 7 (5-15); Aspartate Aminotransferase 16 U/L (13-40); BUN/Creatinine Ratio 57.1 (10.0-20.0); Bilirubin, Total 0.3 mg/dL (0.2-1.0); Blood Urea Nitrogen 28 mg/dL (9-23); Calcium 8.1 mg/dL (8.7-10.4); Carbon Dioxide 23 mmol/L (20-30); Chloride 112 mmol/L (98-107); Glucose 114 mg/dL (74-106); Lipase 17 U/L (12-53); Potassium 3.8 mmol/L (3.5-5.1); Sodium 142 mmol/L (136-145); Total Protein 5.9 g/dL (5.7-8.2)
[2023-05-04 14:18] LABS: Urine Bacteria FEW /hpf (None Seen); Urine Blood 1+ /uL (Negative); Urine Budding Yeast FEW /hpf (None Seen); Urine Clarity CLOUDY (Clear); Urine Color Yellow (Yellow); Urine Hyaline Cast FEW /lpf (0 - 2); Urine Mucus FEW (None Seen); Urine Protein, UAD 1+ (Negative); Urine Specific Gravity 1.026 (1.001-1.035); Urine Urobilinogen Normal (Negative); Urine WBC 503 /hpf (0 - 5); Urine WBC Clumps PRESENT /hpf (None Seen)
[2023-05-04] MEDS ORDERED: SODIUM CHLORIDE 0.9% 500 ML IV ONE (14:30)
[2023-05-04] MEDS ORDERED: metroNIDAZOLE 500MG/100ML 100 ML IV ONE (14:30)
[2023-05-04] MEDS ORDERED: PANTOPRAZOLE 40 MG/10 ML VIAL INJ IV ONE (14:30)
[2023-05-04 15:30] LABS: INR 1.08 (0.9-1.15); Partial Thromboplastin Time 25.4 SEC (24.5-34.5); Prothrombin Time 11.3 sec (9.3-11.8)
[2023-05-04] MEDS ORDERED: SODIUM CHLORIDE 0.9% 1,000 ML IV ONE ×2 (16:30→18:30)
[2023-05-04] MEDS ORDERED: FLEET MINERAL OIL ENEMA 133 ML PR ONE (17:19)
[2023-05-04] MEDS ORDERED: D5W/SOD CHL 0.45%/KCL 20MEQ 1,000 ML IV ONE (17:45)
[2023-05-04] MEDS ORDERED: CALCIUM GLUC 1,000mg/50ml-NS 50 ML IV ONE (18:30)
[2023-05-04] MEDS ORDERED: ACETAMINOPHEN 325 MG TAB PO PRN (19:00)
[2023-05-04] MEDS ORDERED: ONDANSETRON HCL 4 MG/2 ML VIAL IV PRN (19:00)
[2023-05-04] MEDS ORDERED: VANCOMYCIN PER PHARMACY 0 MG IV SCH (19:00)
[2023-05-04] MEDS ORDERED: levoFLOXacin 500MG 100 ML IV SCH (19:14)
[2023-05-04] MEDS: NOREPINEPHRINE 8 MG/250ML KIT 250 ML IV SCH (19:30)
[2023-05-04 20:00] VITALS: PULSE 83; RESP 19; O2SAT 100
[2023-05-04] MEDS ORDERED: VANCOMYCIN 1GM/250ML 250 ML IV ONE (20:00)
[2023-05-04] MEDS: SODIUM CHLORIDE 0.9% 1,000 ML IV SCH (22:04)
[2023-05-05] VITALS (25 sets, daily range): BP systolic 85–130; BP diastolic 42–81; PULSE 56–112; RESP 13–26; TEMP 98.3–98.9; O2SAT 96–100
[2023-05-05] MEDS: DOCUSATE SOD 100 MG CAP PO SCH ×4 (00:22→21:35)
[2023-05-05] MEDS: LACTULOSE 20Gm/30ML SOLN PO SCH ×3 (00:22→21:35)
[2023-05-05] MEDS: SODIUM CHLORIDE 0.9% 1,000 ML IV SCH ×2 (05:00→15:11)
[2023-05-05 07:32] LABS: Basophils # (auto) 0.1 10 ^3/uL (0-0.2); Basophils % (auto) 0.3 % (0.0-2.0); Eosinophils # (auto) 0.1 10 ^3/uL (0-0.8); Eosinophils % (auto) 0.7 % (0.0-7.0); Hemoglobin 7.2 g/dL (12.2-16.2); Lymphocytes # (auto) 1.1 10 ^3/uL (0.4-5.4); Monocytes # (auto) 1.1 10 ^3/uL (0-1.3); Neutrophils # (auto) 16.3 10 ^3/uL (1.6-8.6); White Blood Cell 18.7 10^3/uL (4.4-10.8)
[2023-05-05 07:34] LABS: Hematocrit 23.4 % (36.0-46.0); Lymphocytes % (auto) 5.7 % (10.0-50.0); Mean Corpuscular Hemoglobin 26.1 pg (28.0-32.0); Mean Corpuscular Volume 84.1 fL (80.0-100.0); Monocytes % (auto) 6.1 % (0.0-12.0); Neutrophils % (auto) 87.2 % (37.0-80.0); Red Blood Cells 2.78 10^6/uL (4.0-5.20); Red Cell Distribution Width 15.8 % (11.8-14.3)
[2023-05-05 07:54] LABS: Alanine Aminotransferase 12 U/L (7-40); Albumin 3.1 g/dL (3.2-4.8); Alkaline Phosphatase 76 U/L (46-116); Anion Gap 11 (5-15); Aspartate Aminotransferase 15 U/L (13-40); BUN/Creatinine Ratio 26.1 (10.0-20.0); Bilirubin, Total 0.3 mg/dL (0.2-1.0); Blood Urea Nitrogen 12 mg/dL (9-23); Calcium 7.9 mg/dL (8.5-10.1); Carbon Dioxide 18 mmol/L (20-30); Chloride 114 mmol/L (98-107); Glucose 130 mg/dL (74-106); Potassium 3.3 mmol/L (3.5-5.1); Sodium 143 mmol/L (136-145); Total Protein 5.9 g/dL (5.7-8.2)
[2023-05-05] MEDS ORDERED: POLYETHYLENE GLYCOL 17 GM PWDR PO ONE (09:30)
[2023-05-05] MEDS ORDERED: POTASSIUM CHL 20MEQ/100ML 100 ML IV ONE (09:45)
[2023-05-05] MEDS: levETIRAcetam 500 MG TAB PO SCH ×2 (10:09→21:35)
[2023-05-05 10:37] LABS: % Iron Saturation 7.4 % (15-50)
[2023-05-05] MEDS: PANTOPRAZOLE 40 MG/10 ML VIAL INJ IV SCH ×2 (10:42→21:35)
[2023-05-05 11:18] LABS: Ferritin 70.5 ng/mL (10-291)
[2023-05-05] MEDS: VANCOMYCIN HCL 125MG/5ML ORAL SOL PO SCH ×2 (18:00→21:36)
[2023-05-05] MEDS: VANCOMYCIN 1GM/250ML 250 ML IV SCH (19:55)
[2023-05-05] MEDS: levoFLOXacin 500MG 100 ML IV SCH (20:42)
[2023-05-05] MEDS: SODIUM FERR GLUC 62.5MG/5ML 125 MG in SODIUM CHL 0.9% 100 ML IV SCH (21:08)
[2023-05-05] MEDS: ACETAMINOPHEN 325 MG TAB PO PRN (21:34)
[2023-05-05] MEDS: ATORVASTATIN 20 MG TAB PO SCH (21:35)
[2023-05-06] VITALS (115 sets, daily range): BP systolic 84–116; BP diastolic 38–87; PULSE 58–129; RESP 10–27; TEMP 96.8–98.5; O2SAT 84–100
[2023-05-06] MEDS: SODIUM CHLORIDE 0.9% 1,000 ML IV SCH ×3 (01:50→21:18)
[2023-05-06] MEDS ORDERED: BUSP10TA90 PO (04:47)
[2023-05-06] MEDS: ACETAMINOPHEN 325 MG TAB PO PRN (06:00)
[2023-05-06] MEDS: VANCOMYCIN HCL 125MG/5ML ORAL SOL PO SCH ×4 (06:02→21:31)
[2023-05-06] MEDS: DOCUSATE SOD 100 MG CAP PO SCH ×3 (06:03→21:31)
[2023-05-06] MEDS: LEVOTHYROXINE SODIUM 50 MCG TAB PO SCH (06:03)
[2023-05-06] MEDS: NOREPINEPHRINE 8 MG/250ML KIT 250 ML IV SCH ×3 (06:08→22:00)
[2023-05-06] MEDS: levETIRAcetam 500 MG TAB PO SCH ×3 (08:22→21:31)
[2023-05-06] MEDS: PANTOPRAZOLE 40 MG/10 ML VIAL INJ IV SCH ×2 (08:22→21:29)
[2023-05-06] MEDS: VANCOMYCIN 1GM/250ML 250 ML IV SCH ×2 (08:22→23:27)
[2023-05-06] MEDS: LACTULOSE 20Gm/30ML SOLN PO SCH ×3 (08:22→21:29)
[2023-05-06] MEDS ORDERED: POLYETHYLENE GLYCOL 17 GM PWDR PO ONE (09:00)
[2023-05-06] MEDS ORDERED: SODIUM CHLORIDE 0.9% 500 ML IV ONE ×2 (09:00→21:45)
[2023-05-06 10:04] LABS: Basophils # (auto) 0.1 10 ^3/uL (0-0.2); Eosinophils # (auto) 0.5 10 ^3/uL (0-0.8); Hemoglobin 8.9 g/dL (12.2-16.2); Lymphocytes # (auto) 1.4 10 ^3/uL (0.4-5.4); Monocytes # (auto) 0.8 10 ^3/uL (0-1.3)
[2023-05-06 10:07] LABS: Basophils % (auto) 0.6 % (0.0-2.0); Eosinophils % (auto) 6.1 % (0.0-7.0); Hematocrit 28.4 % (36.0-46.0); Lymphocytes % (auto) 16.5 % (10.0-50.0); Mean Corpuscular Hemoglobin 27.3 pg (28.0-32.0); Mean Corpuscular Hgb Conc. 31.4 g/dL (32.0-36.0); Mean Corpuscular Volume 86.8 fL (80.0-100.0); Monocytes % (auto) 8.7 % (0.0-12.0); Neutrophils # (auto) 5.9 10 ^3/uL (1.6-8.6); Neutrophils % (auto) 68.1 % (37.0-80.0); Nucleated Red Blood Cells % 0.2 %; Red Blood Cells 3.27 10^6/uL (4.0-5.20); Red Cell Distribution Width 16.4 % (11.8-14.3); White Blood Cell 8.7 10^3/uL (4.4-10.8)
[2023-05-06 10:10] LABS: Chloride 114 mmol/L (98-107); Potassium 2.9 mmol/L (3.5-5.1); Sodium 141 mmol/L (136-145)
[2023-05-06 10:11] LABS: Anion Gap 8 (5-15); Carbon Dioxide 19 mmol/L (20-30)
[2023-05-06 10:12] LABS: Calcium 7.5 mg/dL (8.5-10.1)
[2023-05-06] MEDS ORDERED: DULO60CA41 PO (10:13)
[2023-05-06] MEDS ORDERED: METH-928 PO (10:15)
[2023-05-06 10:16] LABS: Glucose 154 mg/dL (74-106)
[2023-05-06 10:26] LABS: BUN/Creatinine Ratio 11.1 (10.0-20.0); Blood Urea Nitrogen < 5 mg/dL (9-23)
[2023-05-06] MEDS: POTASSIUM CHL 20MEQ/100ML 100 ML IV SCH ×2 (11:42→13:45)
[2023-05-06] MEDS: SODIUM FERR GLUC 62.5MG/5ML 125 MG in SODIUM CHL 0.9% 100 ML IV SCH (12:53)
[2023-05-06] MEDS: levoFLOXacin 500MG 100 ML IV SCH (17:13)
[2023-05-06] MEDS: MUPIROCIN 2% OINT 15gm or 22gm FOR MRSA NARES EACHNOSTRI SCH (21:31)
[2023-05-06] MEDS: ATORVASTATIN 20 MG TAB PO SCH (21:31)
[2023-05-07] VITALS (101 sets, daily range): BP systolic 77–125; BP diastolic 40–76; PULSE 51–119; RESP 10–37; TEMP 96.4–98.4; O2SAT 79–100
[2023-05-07 05:16] LABS: Basophils # (auto) 0 10 ^3/uL (0-0.2); Eosinophils # (auto) 0.5 10 ^3/uL (0-0.8); Hemoglobin 8.3 g/dL (12.2-16.2); Lymphocytes # (auto) 1.2 10 ^3/uL (0.4-5.4); Lymphocytes % (auto) 16.2 % (10.0-50.0); Monocytes # (auto) 0.6 10 ^3/uL (0-1.3); Neutrophils # (auto) 5.2 10 ^3/uL (1.6-8.6)
[2023-05-07 05:20] LABS: Basophils % (auto) 0.4 % (0.0-2.0); Eosinophils % (auto) 6.1 % (0.0-7.0); Hematocrit 25.5 % (36.0-46.0); Mean Corpuscular Hemoglobin 27.6 pg (28.0-32.0); Mean Corpuscular Hgb Conc. 32.4 g/dL (32.0-36.0); Mean Corpuscular Volume 85.1 fL (80.0-100.0); Monocytes % (auto) 8.2 % (0.0-12.0); Neutrophils % (auto) 69.1 % (37.0-80.0); Red Cell Distribution Width 16.8 % (11.8-14.3); White Blood Cell 7.5 10^3/uL (4.4-10.8)
[2023-05-07 05:32] LABS: INR 1.21 (0.9-1.15); Partial Thromboplastin Time 34.4 SEC (24.5-34.5); Prothrombin Time 12.5 sec (9.3-11.8)
[2023-05-07 05:34] LABS: Chloride 117 mmol/L (98-107); Sodium 145 mmol/L (136-145)
[2023-05-07 05:35] LABS: Anion Gap 9 (5-15); Calcium 7.3 mg/dL (8.7-10.4); Carbon Dioxide 19 mmol/L (20-30)
[2023-05-07] MEDS: VANCOMYCIN HCL 125MG/5ML ORAL SOL PO SCH ×5 (05:38→21:24)
[2023-05-07] MEDS: DOCUSATE SOD 100 MG CAP PO SCH ×3 (05:38→21:24)
[2023-05-07] MEDS: SODIUM CHLORIDE 0.9% 1,000 ML IV SCH ×2 (05:38→09:51)
[2023-05-07] MEDS: LEVOTHYROXINE SODIUM 50 MCG TAB PO SCH (05:38)
[2023-05-07 05:40] LABS: Glucose 96 mg/dL (74-106)
[2023-05-07 05:51] LABS: BUN/Creatinine Ratio 10.9 (10.0-20.0); Blood Urea Nitrogen < 5 mg/dL (9-23)
[2023-05-07] MEDS ORDERED: POTASSIUM CHL 20MEQ/100ML 100 ML IV ONE ×2 (06:15→16:45)
[2023-05-07] MEDS ORDERED: SODIUM CHLORIDE LOCK 10 ML ONE (08:39)
[2023-05-07] MEDS ORDERED: MIDAZOLAM HCL 5 MG/ML-1ML VIAL ONE (08:40)
[2023-05-07] MEDS ORDERED: LIDOCAINE VISCOUS 2% 15ML UD ONE (08:40)
[2023-05-07] MEDS ORDERED: diphenhdrAMINE HCL 50 MG/1 ML VL ONE (08:41)
[2023-05-07] MEDS ORDERED: fentaNYL CITRATE 100 MCG/2 ML VL ONE (08:41)
[2023-05-07] MEDS: levETIRAcetam 500 MG TAB PO SCH ×2 (08:43→21:24)
[2023-05-07] MEDS: PANTOPRAZOLE 40 MG/10 ML VIAL INJ IV SCH ×2 (08:43→21:23)
[2023-05-07] MEDS: MUPIROCIN 2% OINT 15gm or 22gm FOR MRSA NARES EACHNOSTRI SCH ×2 (08:43→21:23)
[2023-05-07] MEDS: LACTULOSE 20Gm/30ML SOLN PO SCH ×2 (08:44→21:24)
[2023-05-07] MEDS ORDERED: SODIUM CHLORIDE 0.9% 500 ML IV ONE ×2 (08:45→16:30)
[2023-05-07] MEDS ORDERED: MUPI2OIN2 EACHNOSTRI ×2 (08:56)
[2023-05-07] MEDS ORDERED: DOCU-265 PO (08:56)
[2023-05-07] MEDS ORDERED: LACT10SO3 PO (08:56)
[2023-05-07] MEDS: NOREPINEPHRINE 8 MG/250ML KIT 250 ML IV SCH (12:03)
[2023-05-07] MEDS ORDERED: MIDODRINE HCL 10 MG TAB PO ONE (12:15)
[2023-05-07] MEDS: D5W/SOD CHLO 0.9% 1,000 ML IV SCH (12:44)
[2023-05-07 15:43] LABS: Chloride 116 mmol/L (98-107); Potassium 3.4 mmol/L (3.5-5.1); Sodium 144 mmol/L (136-145)
[2023-05-07 15:44] LABS: Anion Gap 9 (5-15); Carbon Dioxide 19 mmol/L (20-30)
[2023-05-07 15:45] LABS: Calcium 7.5 mg/dL (8.7-10.4)
[2023-05-07 15:49] LABS: Glucose 106 mg/dL (74-106)
[2023-05-07 15:50] LABS: BUN/Creatinine Ratio 9.8 (10.0-20.0); Blood Urea Nitrogen < 5 mg/dL (9-23); Magnesium 1.6 mg/dL (1.6-2.6)
[2023-05-07] MEDS: VANCOMYCIN 1GM/250ML 250 ML IV SCH (15:56)
[2023-05-07] MEDS: MIDODRINE HCL 10 MG TAB PO SCH (17:00)
[2023-05-07] MEDS: levoFLOXacin 500MG 100 ML IV SCH (17:00)
[2023-05-07] MEDS: ATORVASTATIN 20 MG TAB PO SCH (21:24)
[2023-05-08] VITALS (100 sets, daily range): BP systolic 68–121; BP diastolic 37–63; PULSE 52–99; RESP 8–29; TEMP 98–98.3; O2SAT 78–100
[2023-05-08] MEDS: D5W/SOD CHLO 0.9% 1,000 ML IV SCH ×2 (01:50→15:13)
[2023-05-08 02:59] LABS: Basophils % (auto) 0.5 % (0.0-2.0); Lymphocytes # (auto) 1.7 10 ^3/uL (0.4-5.4); Mean Corpuscular Volume 84.4 fL (80.0-100.0); Monocytes # (auto) 0.9 10 ^3/uL (0-1.3); Nucleated Red Blood Cells % 0.1 %
[2023-05-08 03:00] LABS: Basophils # (auto) 0 10 ^3/uL (0-0.2); Eosinophils # (auto) 0.6 10 ^3/uL (0-0.8); Eosinophils % (auto) 6.5 % (0.0-7.0); Hematocrit 25.5 % (36.0-46.0); Hemoglobin 8.5 g/dL (12.2-16.2); Mean Corpuscular Hemoglobin 28.1 pg (28.0-32.0); Mean Corpuscular Hgb Conc. 33.3 g/dL (32.0-36.0); Monocytes % (auto) 8.9 % (0.0-12.0); Neutrophils # (auto) 6.6 10 ^3/uL (1.6-8.6); Neutrophils % (auto) 67.1 % (37.0-80.0); Red Blood Cells 3.02 10^6/uL (4.0-5.20); Red Cell Distribution Width 17.3 % (11.8-14.3); White Blood Cell 9.8 10^3/uL (4.4-10.8)
[2023-05-08 03:11] LABS: Chloride 115 mmol/L (98-107); Potassium 3.2 mmol/L (3.5-5.1); Sodium 142 mmol/L (136-145)
[2023-05-08 03:12] LABS: Anion Gap 7 (5-15); Calcium 7.4 mg/dL (8.7-10.4); Carbon Dioxide 20 mmol/L (20-30)
[2023-05-08 03:17] LABS: Glucose 140 mg/dL (74-106)
[2023-05-08 03:23] LABS: BUN/Creatinine Ratio 9.6 (10.0-20.0); Blood Urea Nitrogen < 5 mg/dL (9-23)
[2023-05-08] MEDS: MIDODRINE HCL 10 MG TAB PO SCH ×3 (05:52→17:33)
[2023-05-08] MEDS: VANCOMYCIN HCL 125MG/5ML ORAL SOL PO SCH ×4 (05:52→21:54)
[2023-05-08] MEDS: DOCUSATE SOD 100 MG CAP PO SCH ×3 (05:52→21:52)
[2023-05-08] MEDS: LEVOTHYROXINE SODIUM 50 MCG TAB PO SCH (06:09)
[2023-05-08] MEDS: PANTOPRAZOLE 40 MG/10 ML VIAL INJ IV SCH ×2 (08:45→21:50)
[2023-05-08] MEDS: levETIRAcetam 500 MG TAB PO SCH ×2 (08:45→21:52)
[2023-05-08] MEDS: LACTULOSE 20Gm/30ML SOLN PO SCH ×2 (08:45→21:50)
[2023-05-08] MEDS: VANCOMYCIN 1GM/250ML 250 ML IV SCH ×2 (08:45→23:50)
[2023-05-08] MEDS: MUPIROCIN 2% OINT 15gm or 22gm FOR MRSA NARES EACHNOSTRI SCH ×2 (08:46→21:54)
[2023-05-08] MEDS ORDERED: SODIUM CHLORIDE 0.9% 500 ML IV ONE (13:30)
[2023-05-08] MEDS ORDERED: POTASSIUM CHL 20 Meq TABLET PO ONE (14:00)
[2023-05-08] MEDS: POTASSIUM CHL 20MEQ/100ML 100 ML IV SCH ×2 (15:12→17:23)
[2023-05-08] MEDS: MAGNESIUM SULFATE 1GM/100ML 100 ML IV SCH ×3 (15:12→18:25)
[2023-05-08] MEDS: levoFLOXacin 500MG 100 ML IV SCH (17:34)
[2023-05-08] MEDS: ATORVASTATIN 20 MG TAB PO SCH (21:52)
[2023-05-08] MEDS: NOREPINEPHRINE 8 MG/250ML KIT 250 ML IV SCH (22:00)
[2023-05-09] VITALS (99 sets, daily range): BP systolic 79–125; BP diastolic 34–102; PULSE 53–95; RESP 10–27; TEMP 97.9–99.1; O2SAT 97–100
[2023-05-09] MEDS: D5W/SOD CHLO 0.9% 1,000 ML IV SCH ×2 (03:08→15:51)
[2023-05-09 04:57] LABS: Chloride 114 mmol/L (98-107); Sodium 143 mmol/L (136-145)
[2023-05-09 04:58] LABS: Anion Gap 7 (5-15); Calcium 7.1 mg/dL (8.7-10.4); Carbon Dioxide 22 mmol/L (20-30)
[2023-05-09 05:03] LABS: Glucose 153 mg/dL (74-106)
[2023-05-09 05:04] LABS: Blood Urea Nitrogen < 5 mg/dL (9-23)
[2023-05-09 05:08] LABS: Hematocrit 25.3 % (36.0-46.0); Hemoglobin 8.3 g/dL (12.2-16.2); Red Blood Cells 2.98 10^6/uL (4.0-5.20)
[2023-05-09 05:10] LABS: Basophils # (auto) 0 10 ^3/uL (0-0.2); Basophils % (auto) 0.5 % (0.0-2.0); Eosinophils # (auto) 0.6 10 ^3/uL (0-0.8); Eosinophils % (auto) 6.4 % (0.0-7.0); Lymphocytes # (auto) 1.7 10 ^3/uL (0.4-5.4); Mean Corpuscular Hemoglobin 27.9 pg (28.0-32.0); Mean Corpuscular Hgb Conc. 32.9 g/dL (32.0-36.0); Mean Corpuscular Volume 84.9 fL (80.0-100.0); Monocytes % (auto) 11.1 % (0.0-12.0); Neutrophils # (auto) 5.7 10 ^3/uL (1.6-8.6); Nucleated Red Blood Cells % 0.1 %; Red Cell Distribution Width 18.6 % (11.8-14.3)
[2023-05-09] MEDS: LEVOTHYROXINE SODIUM 50 MCG TAB PO SCH (06:29)
[2023-05-09] MEDS: DOCUSATE SOD 100 MG CAP PO SCH ×2 (06:29→11:58)
[2023-05-09] MEDS: MIDODRINE HCL 10 MG TAB PO SCH ×3 (06:29→17:54)
[2023-05-09] MEDS: VANCOMYCIN HCL 125MG/5ML ORAL SOL PO SCH ×4 (06:29→21:04)
[2023-05-09] MEDS: PANTOPRAZOLE 40 MG/10 ML VIAL INJ IV SCH ×2 (07:43→21:04)
[2023-05-09] MEDS: MUPIROCIN 2% OINT 15gm or 22gm FOR MRSA NARES EACHNOSTRI SCH ×2 (07:44→21:05)
[2023-05-09] MEDS: CLOPIDOGREL BISULFATE 75 MG TAB PO SCH (07:44)
[2023-05-09] MEDS: levETIRAcetam 500 MG TAB PO SCH ×2 (07:44→21:05)
[2023-05-09] MEDS: LACTULOSE 20Gm/30ML SOLN PO SCH (07:44)
[2023-05-09] MEDS ORDERED: POTASSIUM CHL 20 Meq TABLET PO ONE ×3 (09:00→17:45)
[2023-05-09] MEDS: POTASSIUM CHL 20MEQ/100ML 100 ML IV SCH ×2 (09:43→11:22)
[2023-05-09] MEDS ORDERED: SODIUM CHLORIDE 0.9% 1,000 ML IV ONE ×2 (11:15→17:45)
[2023-05-09] MEDS: VANCOMYCIN 1GM/250ML 250 ML IV SCH (15:03)
[2023-05-09 16:03] LABS: Chloride 114 mmol/L (98-107); Potassium 3.8 mmol/L (3.5-5.1); Sodium 141 mmol/L (136-145)
[2023-05-09 16:04] LABS: Anion Gap 5 (5-15); Carbon Dioxide 22 mmol/L (20-30)
[2023-05-09 16:09] LABS: Glucose 163 mg/dL (74-106)
[2023-05-09 16:10] LABS: Magnesium 1.8 mg/dL (1.6-2.6)
[2023-05-09 16:12] LABS: Blood Urea Nitrogen < 5 mg/dL (9-23)
[2023-05-09] MEDS: MAGNESIUM SULFATE 1GM/100ML 100 ML IV SCH ×2 (17:54→19:35)
[2023-05-09] MEDS: levoFLOXacin 500MG 100 ML IV SCH (17:54)
[2023-05-09] MEDS: ATORVASTATIN 20 MG TAB PO SCH (21:05)
[2023-05-10] VITALS (83 sets, daily range): BP systolic 77–119; BP diastolic 40–75; PULSE 59–105; RESP 4–23; TEMP 97.7–99.2; O2SAT 92–100
[2023-05-10] MEDS ORDERED: SODIUM CHLORIDE 0.9% 1,000 ML IV ONE (01:45)
[2023-05-10] MEDS: NOREPINEPHRINE 8 MG/250ML KIT 250 ML IV SCH ×2 (02:26→22:00)
[2023-05-10] MEDS: MIDODRINE HCL 10 MG TAB PO SCH ×2 (05:29→17:45)
[2023-05-10] MEDS: VANCOMYCIN HCL 125MG/5ML ORAL SOL PO SCH ×4 (05:30→21:30)
[2023-05-10] MEDS: LEVOTHYROXINE SODIUM 50 MCG TAB PO SCH (05:31)
[2023-05-10] MEDS: D5W/SOD CHLO 0.9% 1,000 ML IV SCH ×2 (05:31→20:30)
[2023-05-10 05:33] LABS: Basophils # (auto) 0 10 ^3/uL (0-0.2); Basophils % (auto) 0.4 % (0.0-2.0); Eosinophils # (auto) 0.5 10 ^3/uL (0-0.8); Eosinophils % (auto) 4.3 % (0.0-7.0); Hematocrit 27.6 % (36.0-46.0); Hemoglobin 8.8 g/dL (12.2-16.2); Lymphocytes # (auto) 2.2 10 ^3/uL (0.4-5.4); Lymphocytes % (auto) 20.1 % (10.0-50.0); Mean Corpuscular Hemoglobin 27.6 pg (28.0-32.0); Mean Corpuscular Volume 86.3 fL (80.0-100.0); Monocytes # (auto) 1.1 10 ^3/uL (0-1.3); Monocytes % (auto) 9.9 % (0.0-12.0); Neutrophils # (auto) 7.2 10 ^3/uL (1.6-8.6); Neutrophils % (auto) 65.3 % (37.0-80.0); Nucleated Red Blood Cells % 0.1 %; Red Cell Distribution Width 19.5 % (11.8-14.3)
[2023-05-10 05:39] LABS: Chloride 114 mmol/L (98-107); Potassium 4.3 mmol/L (3.5-5.1); Sodium 140 mmol/L (136-145)
[2023-05-10 05:40] LABS: Anion Gap 4 (5-15); Carbon Dioxide 22 mmol/L (20-30)
[2023-05-10 05:41] LABS: Calcium 7.2 mg/dL (8.7-10.4)
[2023-05-10 05:45] LABS: Glucose 149 mg/dL (74-106)
[2023-05-10 06:15] LABS: BUN/Creatinine Ratio 8.5 (10.0-20.0); Blood Urea Nitrogen < 5 mg/dL (9-23)
[2023-05-10] MEDS: VANCOMYCIN 1GM/250ML 250 ML IV SCH (08:18)
[2023-05-10] MEDS: CLOPIDOGREL BISULFATE 75 MG TAB PO SCH (10:00)
[2023-05-10] MEDS: PANTOPRAZOLE 40 MG/10 ML VIAL INJ IV SCH ×2 (10:26→21:28)
[2023-05-10] MEDS: levETIRAcetam 500 MG TAB PO SCH ×2 (10:26→21:28)
[2023-05-10] MEDS: MUPIROCIN 2% OINT 15gm or 22gm FOR MRSA NARES EACHNOSTRI SCH ×2 (10:27→21:36)
[2023-05-10] MEDS ORDERED: MIDODRINE HCL 10 MG TAB PO SCH (12:15)
[2023-05-10] MEDS: ACETAMINOPHEN 325 MG TAB PO PRN (19:48)
[2023-05-10] MEDS: ATORVASTATIN 20 MG TAB PO SCH (21:28)
[2023-05-11] VITALS (95 sets, daily range): BP systolic 73–135; BP diastolic 40–71; PULSE 45–178; RESP 8–26; TEMP 97.1–99.7; O2SAT 93–100
[2023-05-11] MEDS: DOXYCYCLINE 100 MG TAB/CAP PO SCH ×2 (01:31→10:14)
[2023-05-11] MEDS: MIDODRINE HCL 10 MG TAB PO SCH ×3 (01:31→18:00)
[2023-05-11 05:15] LABS: Basophils # (auto) 0.1 10 ^3/uL (0-0.2); Eosinophils # (auto) 0.6 10 ^3/uL (0-0.8); Eosinophils % (auto) 4.2 % (0.0-7.0); Hemoglobin 7.6 g/dL (12.2-16.2); Lymphocytes # (auto) 2.9 10 ^3/uL (0.4-5.4); White Blood Cell 13.3 10^3/uL (4.4-10.8)
[2023-05-11 05:18] LABS: Basophils % (auto) 0.5 % (0.0-2.0); Lymphocytes % (auto) 21.7 % (10.0-50.0); Mean Corpuscular Hemoglobin 27.4 pg (28.0-32.0); Mean Corpuscular Hgb Conc. 31.7 g/dL (32.0-36.0); Mean Corpuscular Volume 86.7 fL (80.0-100.0); Monocytes # (auto) 1.1 10 ^3/uL (0-1.3); Monocytes % (auto) 8.3 % (0.0-12.0); Neutrophils # (auto) 8.7 10 ^3/uL (1.6-8.6); Neutrophils % (auto) 65.3 % (37.0-80.0); Red Blood Cells 2.77 10^6/uL (4.0-5.20)
[2023-05-11 05:34] LABS: Red Cell Distribution Width 20.1 % (11.8-14.3)
[2023-05-11] MEDS: VANCOMYCIN HCL 125MG/5ML ORAL SOL PO SCH (05:48)
[2023-05-11] MEDS: LEVOTHYROXINE SODIUM 50 MCG TAB PO SCH (05:48)
[2023-05-11 06:30] LABS: Chloride 111 mmol/L (98-107); Potassium 3.8 mmol/L (3.5-5.1); Sodium 140 mmol/L (136-145)
[2023-05-11 06:32] LABS: Anion Gap 7 (5-15); Calcium 7.6 mg/dL (8.7-10.4); Carbon Dioxide 22 mmol/L (20-30)
[2023-05-11 06:37] LABS: Glucose 129 mg/dL (74-106)
[2023-05-11 06:39] LABS: BUN/Creatinine Ratio 10.4 (10.0-20.0); Blood Urea Nitrogen < 5 mg/dL (9-23)
[2023-05-11] MEDS: D5W/SOD CHLO 0.9% 1,000 ML IV SCH (06:54)
[2023-05-11] MEDS: CLOPIDOGREL BISULFATE 75 MG TAB PO SCH (09:56)
[2023-05-11] MEDS ORDERED: levoFLOXacin 500 MG TAB PO SCH ×2 (10:00→11:30)
[2023-05-11] MEDS: levETIRAcetam 500 MG TAB PO SCH (10:14)
[2023-05-11] MEDS: PANTOPRAZOLE 40 MG/10 ML VIAL INJ IV SCH (10:14)
[2023-05-11] MEDS: MUPIROCIN 2% OINT 15gm or 22gm FOR MRSA NARES EACHNOSTRI SCH (10:14)
[2023-05-11] MEDS ORDERED: PHYTONADIONE(VitK) ORAL Susp 5mg/5ml(1mg/ml) PO ONE (11:30)
[2023-05-11] MEDS ORDERED: metroNIDAZOLE 500 MG TAB PO SCH (14:00)
[2023-05-11] MEDS: SODIUM FERR GLUC 62.5MG/5ML 125 MG in SODIUM CHL 0.9% 100 ML IV SCH (14:04)
[2023-05-11] MEDS: ERTAPENEM SOD INJ 1 GM in SODIUM CHL 0.9% 50 ML IV SCH (15:00)
[2023-05-11] MEDS ORDERED: IOHEXOL 300 MG/ML 100ML BOTTLE IJ ONE (15:11)
[2023-05-11] MEDS: ACETAMINOPHEN 325 MG TAB PO PRN (16:38)
[2023-05-11] MEDS ORDERED: busPIRone HCL 10 MG TAB PO ONE (17:00)
[2023-05-11] MEDS: FERROUS SULFATE 325mg EC TAB PO SCH (18:00)
[2023-05-11] MEDS: NOREPINEPHRINE 8 MG/250ML KIT 250 ML IV SCH (22:00)
[2023-05-11 23:50] LABS: Chloride 112 mmol/L (98-107); Potassium 3.5 mmol/L (3.5-5.1); Sodium 141 mmol/L (136-145)
[2023-05-11 23:51] LABS: Anion Gap 5 (5-15); Carbon Dioxide 24 mmol/L (20-30)
[2023-05-11 23:52] LABS: Calcium 7.8 mg/dL (8.5-10.1)
[2023-05-11 23:56] LABS: Glucose 113 mg/dL (74-106)
[2023-05-11 23:57] LABS: BUN/Creatinine Ratio 8.9 (10.0-20.0); Blood Urea Nitrogen < 5 mg/dL (9-23)
[2023-05-12] VITALS (87 sets, daily range): BP systolic 88–135; BP diastolic 46–92; PULSE 38–108; RESP 9–28; TEMP 97.2–97.9; O2SAT 91–100
[2023-05-12] MEDS: ATORVASTATIN 20 MG TAB PO SCH ×2 (00:01→22:24)
[2023-05-12] MEDS: levETIRAcetam 500 MG TAB PO SCH ×3 (00:02→22:24)
[2023-05-12] MEDS: PANTOPRAZOLE 40 MG/10 ML VIAL INJ IV SCH ×3 (00:02→22:23)
[2023-05-12] MEDS: D5W/SOD CHLO 0.9% 1,000 ML IV SCH ×2 (00:03→12:45)
[2023-05-12 00:29] LABS: Hemoglobin 11.9 g/dL (12.2-16.2)
[2023-05-12] MEDS: MIDODRINE HCL 10 MG TAB PO SCH ×3 (06:00→17:42)
[2023-05-12] MEDS: LEVOTHYROXINE SODIUM 50 MCG TAB PO SCH (07:00)
[2023-05-12 07:40] LABS: Basophils # (auto) 0.1 10 ^3/uL (0-0.2); Basophils % (auto) 0.6 % (0.0-2.0); Eosinophils # (auto) 0.4 10 ^3/uL (0-0.8); Eosinophils % (auto) 3.9 % (0.0-7.0); Hematocrit 40.2 % (36.0-46.0); Hemoglobin 13.2 g/dL (12.2-16.2); Lymphocytes # (auto) 2.3 10 ^3/uL (0.4-5.4); Lymphocytes % (auto) 23.3 % (10.0-50.0); Mean Corpuscular Hemoglobin 27.5 pg (28.0-32.0); Mean Corpuscular Hgb Conc. 32.9 g/dL (32.0-36.0); Mean Corpuscular Volume 83.8 fL (80.0-100.0); Monocytes # (auto) 0.8 10 ^3/uL (0-1.3); Monocytes % (auto) 8.4 % (0.0-12.0); Neutrophils # (auto) 6.4 10 ^3/uL (1.6-8.6); Neutrophils % (auto) 63.8 % (37.0-80.0); Nucleated Red Blood Cells % 0.1 %; Red Cell Distribution Width 19.1 % (11.8-14.3)
[2023-05-12 07:48] LABS: Chloride 112 mmol/L (98-107); Potassium 3.4 mmol/L (3.5-5.1); Sodium 142 mmol/L (136-145)
[2023-05-12 07:49] LABS: Anion Gap 5 (5-15); Calcium 7.9 mg/dL (8.5-10.1); Carbon Dioxide 25 mmol/L (20-30)
[2023-05-12 07:54] LABS: Glucose 118 mg/dL (74-106)
[2023-05-12 07:55] LABS: BUN/Creatinine Ratio 9.8 (10.0-20.0); Blood Urea Nitrogen < 5 mg/dL (9-23)
[2023-05-12] MEDS: FERROUS SULFATE 325mg EC TAB PO SCH ×2 (08:00→17:08)
[2023-05-12] MEDS ORDERED: SODIUM CHLORIDE LOCK 10 ML ONE (08:16)
[2023-05-12] MEDS ORDERED: NALOXONE HCL 0.4 MG/ML VIAL ONE (08:16)
[2023-05-12] MEDS ORDERED: FLUMAZENIL 0.1 MG/ML INJ 10ML MDV IV ONE (08:16)
[2023-05-12] MEDS ORDERED: diphenhdrAMINE HCL 50 MG/1 ML VL ONE (08:17)
[2023-05-12] MEDS ORDERED: MIDAZOLAM HCL 5 MG/ML-1ML VIAL ONE (08:17)
[2023-05-12] MEDS ORDERED: fentaNYL CITRATE 100 MCG/2 ML VL ONE (08:17)
[2023-05-12] MEDS ORDERED: LIDOCAINE VISCOUS 2% 15ML UD ONE (08:17)
[2023-05-12] MEDS: ASCORBIC ACID 500 MG TAB PO SCH (08:50)
[2023-05-12] MEDS ORDERED: NOREPINEPHRINE 8 MG/250ML KIT 250 ML IV SCH (10:30)
[2023-05-12 10:36] LABS: INR 1.22 (0.9-1.15); Partial Thromboplastin Time 32.8 SEC (24.5-34.5); Prothrombin Time 12.6 sec (9.3-11.8)
[2023-05-12] MEDS ORDERED: POLYETHYLENE GLYCOL 17 GM PWDR PO ONE (11:00)
[2023-05-12] MEDS ORDERED: POTASSIUM CHL 20MEQ/100ML 100 ML IV ONE (11:00)
[2023-05-12] MEDS ORDERED: POTASSIUM CHL 20 Meq TABLET PO ONE (11:00)
[2023-05-12] MEDS: DOCUSATE SOD 100 MG CAP PO SCH ×2 (11:19→22:24)
[2023-05-12] MEDS: LACTULOSE 20Gm/30ML SOLN PO SCH ×2 (11:21→22:23)
[2023-05-12] MEDS: SODIUM FERR GLUC 62.5MG/5ML 125 MG in SODIUM CHL 0.9% 100 ML IV SCH (12:20)
[2023-05-12] MEDS: ERTAPENEM SOD INJ 1 GM in SODIUM CHL 0.9% 50 ML IV SCH (14:19)
[2023-05-13] VITALS (83 sets, daily range): BP systolic 64–116; BP diastolic 37–67; PULSE 53–146; RESP 11–29; TEMP 97.8–99.9; O2SAT 87–100
[2023-05-13] MEDS: D5W/SOD CHLO 0.9% 1,000 ML IV SCH ×2 (00:02→14:16)
[2023-05-13 05:24] LABS: Anion Gap 8 (5-15); Carbon Dioxide 23 mmol/L (20-30); Chloride 110 mmol/L (98-107); Potassium 3.5 mmol/L (3.5-5.1); Sodium 141 mmol/L (136-145)
[2023-05-13 05:26] LABS: Calcium 6.9 mg/dL (8.5-10.1)
[2023-05-13 05:30] LABS: Glucose 89 mg/dL (74-106)
[2023-05-13 05:36] LABS: Basophils # (auto) 0.1 10 ^3/uL (0-0.2); Basophils % (auto) 0.6 % (0.0-2.0); Eosinophils # (auto) 0.2 10 ^3/uL (0-0.8); Eosinophils % (auto) 2.5 % (0.0-7.0); Hematocrit 39.6 % (36.0-46.0); Hemoglobin 13.1 g/dL (12.2-16.2); Lymphocytes # (auto) 2.4 10 ^3/uL (0.4-5.4); Lymphocytes % (auto) 25.8 % (10.0-50.0); Mean Corpuscular Hemoglobin 27.8 pg (28.0-32.0); Mean Corpuscular Volume 84.4 fL (80.0-100.0); Monocytes # (auto) 0.7 10 ^3/uL (0-1.3); Monocytes % (auto) 7.1 % (0.0-12.0); Neutrophils # (auto) 6.1 10 ^3/uL (1.6-8.6); Nucleated Red Blood Cells % 0.2 %; Red Blood Cells 4.69 10^6/uL (4.0-5.20); Red Cell Distribution Width 19.2 % (11.8-14.3); White Blood Cell 9.5 10^3/uL (4.4-10.8)
[2023-05-13 06:04] LABS: BUN/Creatinine Ratio 11.1 (10.0-20.0); Blood Urea Nitrogen < 5 mg/dL (9-23)
[2023-05-13] MEDS: MIDODRINE HCL 10 MG TAB PO SCH ×3 (06:10→18:37)
[2023-05-13] MEDS: LEVOTHYROXINE SODIUM 50 MCG TAB PO SCH (06:30)
[2023-05-13] MEDS: PANTOPRAZOLE 40 MG/10 ML VIAL INJ IV SCH ×2 (08:20→22:05)
[2023-05-13] MEDS: LACTULOSE 20Gm/30ML SOLN PO SCH ×2 (08:20→22:05)
[2023-05-13] MEDS: ASCORBIC ACID 500 MG TAB PO SCH (08:21)
[2023-05-13] MEDS: DOCUSATE SOD 100 MG CAP PO SCH ×2 (08:21→22:06)
[2023-05-13] MEDS: FERROUS SULFATE 325mg EC TAB PO SCH ×2 (08:21→18:37)
[2023-05-13] MEDS: levETIRAcetam 500 MG TAB PO SCH ×2 (08:21→22:05)
[2023-05-13] MEDS: DOPamine 1600MCG/ML D5W 250 ML IV SCH ×4 (08:46→22:05)
[2023-05-13] MEDS ORDERED: POLYETHYLENE GLYCOL 17 GM PWDR PO ONE (10:45)
[2023-05-13] MEDS ORDERED: POLY335015 PO (11:39)
[2023-05-13] MEDS ORDERED: OMEP-434 PO ×2 (11:42)
[2023-05-13] MEDS ORDERED: METR-344 PO ×2 (11:54)
[2023-05-13] MEDS ORDERED: CEFD300C2 PO ×2 (11:54)
[2023-05-13] MEDS ORDERED: BISACODYL 5 MG EC TAB PO ONE (12:00)
[2023-05-13] MEDS ORDERED: SODIUM CHLORIDE 0.9% 500 ML IV ONE (13:00)
[2023-05-13] MEDS ORDERED: MIDODRINE HCL 10 MG TAB PO ONE (13:00)
[2023-05-13 14:19] LABS: Basophils # (auto) 0.1 10 ^3/uL (0-0.2); Eosinophils # (auto) 0.2 10 ^3/uL (0-0.8); Hematocrit 39.3 % (36.0-46.0); Hemoglobin 12.7 g/dL (12.2-16.2); Lymphocytes # (auto) 2.3 10 ^3/uL (0.4-5.4); Monocytes # (auto) 0.6 10 ^3/uL (0-1.3); Red Blood Cells 4.66 10^6/uL (4.0-5.20)
[2023-05-13 14:21] LABS: Basophils % (auto) 0.4 % (0.0-2.0); Eosinophils % (auto) 1.7 % (0.0-7.0); Lymphocytes % (auto) 19.5 % (10.0-50.0); Mean Corpuscular Hemoglobin 27.2 pg (28.0-32.0); Mean Corpuscular Hgb Conc. 32.3 g/dL (32.0-36.0); Mean Corpuscular Volume 84.4 fL (80.0-100.0); Monocytes % (auto) 5.1 % (0.0-12.0); Neutrophils # (auto) 8.8 10 ^3/uL (1.6-8.6); Neutrophils % (auto) 73.3 % (37.0-80.0); Red Cell Distribution Width 19.8 % (11.8-14.3)
[2023-05-13] MEDS: metroNIDAZOLE 500 MG TAB PO SCH (22:06)
[2023-05-13] MEDS: ATORVASTATIN 20 MG TAB PO SCH (22:06)
[2023-05-13] MEDS: ACETAMINOPHEN 325 MG TAB PO PRN (22:10)
[2023-05-14] VITALS (96 sets, daily range): BP systolic 58–130; BP diastolic 22–72; PULSE 44–113; RESP 10–28; TEMP 97.5–99.1; O2SAT 89–100
[2023-05-14] MEDS: D5W/SOD CHLO 0.9% 1,000 ML IV SCH ×2 (03:17→15:25)
[2023-05-14] MEDS: ACETAMINOPHEN 325 MG TAB PO PRN ×2 (04:39→11:54)
[2023-05-14] MEDS: LEVOTHYROXINE SODIUM 50 MCG TAB PO SCH (06:34)
[2023-05-14] MEDS: MIDODRINE HCL 10 MG TAB PO SCH ×3 (06:34→17:36)
[2023-05-14] MEDS: metroNIDAZOLE 500 MG TAB PO SCH ×3 (06:34→21:39)
[2023-05-14] MEDS: DOPamine 1600MCG/ML D5W 250 ML IV SCH ×3 (06:37→13:48)
[2023-05-14] MEDS: ASCORBIC ACID 500 MG TAB PO SCH (09:59)
[2023-05-14] MEDS: DOCUSATE SOD 100 MG CAP PO SCH ×2 (09:59→21:39)
[2023-05-14] MEDS: LACTULOSE 20Gm/30ML SOLN PO SCH ×2 (09:59→21:39)
[2023-05-14] MEDS: PANTOPRAZOLE 40 MG/10 ML VIAL INJ IV SCH ×2 (09:59→21:39)
[2023-05-14] MEDS: levETIRAcetam 500 MG TAB PO SCH ×2 (10:00→21:39)
[2023-05-14] MEDS: FERROUS SULFATE 325mg EC TAB PO SCH ×2 (10:00→17:36)
[2023-05-14] MEDS: ATORVASTATIN 20 MG TAB PO SCH (21:39)
[2023-05-15] VITALS (95 sets, daily range): BP systolic 64–127; BP diastolic 32–69; PULSE 48–138; RESP 9–26; TEMP 97.7–99.6; O2SAT 92–100
[2023-05-15] MEDS: D5W/SOD CHLO 0.9% 1,000 ML IV SCH ×2 (02:34→20:30)
[2023-05-15] MEDS: DOPamine 1600MCG/ML D5W 250 ML IV SCH ×2 (02:35→15:14)
[2023-05-15] MEDS: metroNIDAZOLE 500 MG TAB PO SCH ×3 (06:05→22:17)
[2023-05-15] MEDS: MIDODRINE HCL 10 MG TAB PO SCH ×3 (06:05→18:00)
[2023-05-15] MEDS: LEVOTHYROXINE SODIUM 50 MCG TAB PO SCH (06:06)
[2023-05-15 06:08] LABS: Basophils # (auto) 0.1 10 ^3/uL (0-0.2); Basophils % (auto) 0.6 % (0.0-2.0); Eosinophils # (auto) 0.2 10 ^3/uL (0-0.8); Eosinophils % (auto) 2.7 % (0.0-7.0); Hematocrit 38.3 % (36.0-46.0); Hemoglobin 12.6 g/dL (12.2-16.2); Lymphocytes % (auto) 22.8 % (10.0-50.0); Mean Corpuscular Hemoglobin 28.2 pg (28.0-32.0); Mean Corpuscular Hgb Conc. 32.9 g/dL (32.0-36.0); Mean Corpuscular Volume 85.5 fL (80.0-100.0); Monocytes # (auto) 0.6 10 ^3/uL (0-1.3); Monocytes % (auto) 6.5 % (0.0-12.0); Neutrophils # (auto) 5.9 10 ^3/uL (1.6-8.6); Neutrophils % (auto) 67.4 % (37.0-80.0); Nucleated Red Blood Cells % 0.3 %; Red Blood Cells 4.48 10^6/uL (4.0-5.20); Red Cell Distribution Width 19.5 % (11.8-14.3); White Blood Cell 8.8 10^3/uL (4.4-10.8)
[2023-05-15 06:34] LABS: Albumin 2.4 g/dL (3.2-4.8); Alkaline Phosphatase 108 U/L (46-116); Anion Gap 9 (5-15); Calcium 7.4 mg/dL (8.7-10.4); Carbon Dioxide 22 mmol/L (20-30); Chloride 111 mmol/L (98-107); Glucose 114 mg/dL (74-106); Potassium 3.1 mmol/L (3.5-5.1); Sodium 142 mmol/L (136-145)
[2023-05-15 06:35] LABS: Aspartate Aminotransferase 18 U/L (13-40)
[2023-05-15 06:36] LABS: Bilirubin, Total 0.6 mg/dL (0.2-1.0); Total Protein 5.4 g/dL (5.7-8.2)
[2023-05-15 07:12] LABS: Alanine Aminotransferase < 9 U/L (7-40); BUN/Creatinine Ratio 9.1 (10.0-20.0); Blood Urea Nitrogen < 5 mg/dL (9-23)
[2023-05-15] MEDS: DOCUSATE SOD 100 MG CAP PO SCH ×2 (09:12→22:00)
[2023-05-15] MEDS: PANTOPRAZOLE 40 MG/10 ML VIAL INJ IV SCH ×2 (09:12→22:30)
[2023-05-15] MEDS: FERROUS SULFATE 325mg EC TAB PO SCH ×2 (09:12→18:04)
[2023-05-15] MEDS: levETIRAcetam 500 MG TAB PO SCH ×2 (09:13→22:17)
[2023-05-15] MEDS: LACTULOSE 20Gm/30ML SOLN PO SCH ×2 (09:13→22:00)
[2023-05-15] MEDS: ASCORBIC ACID 500 MG TAB PO SCH (09:13)
[2023-05-15] MEDS ORDERED: POTASSIUM CHL 20MEQ/100ML 100 ML IV SCH (12:00)
[2023-05-15] MEDS ORDERED: POTASSIUM CHL 20MEQ/100ML 50 ML IV SCH (14:45)
[2023-05-15] MEDS: POTASSIUM CHL 20MEQ/50ML 50 ML IV SCH ×2 (14:45→18:00)
[2023-05-15] MEDS ORDERED: SODIUM CHLORIDE 0.9% 500 ML IV ONE (15:45)
[2023-05-15] MEDS: ALBUMIN 25% 100 ML IV SCH ×2 (16:09→23:34)
[2023-05-15 21:08] LABS: Potassium 4.2 mmol/L (3.5-5.1)
[2023-05-15 21:15] LABS: Magnesium 1.8 mg/dL (1.6-2.6)
[2023-05-15] MEDS: ATORVASTATIN 20 MG TAB PO SCH (22:21)
[2023-05-15] MEDS: MAGNESIUM SULFATE 1GM/100ML 100 ML IV SCH (23:33)
[2023-05-16] VITALS (102 sets, daily range): BP systolic 73–121; BP diastolic 37–67; PULSE 44–97; RESP 10–29; TEMP 97.7–98.9; O2SAT 89–100
[2023-05-16] MEDS: MAGNESIUM SULFATE 1GM/100ML 100 ML IV SCH (00:53)
[2023-05-16] MEDS: DOPamine 1600MCG/ML D5W 250 ML IV SCH ×2 (03:50→13:37)
[2023-05-16] MEDS: MIDODRINE HCL 10 MG TAB PO SCH ×3 (06:11→17:22)
[2023-05-16] MEDS: LEVOTHYROXINE SODIUM 50 MCG TAB PO SCH (06:11)
[2023-05-16] MEDS: metroNIDAZOLE 500 MG TAB PO SCH ×2 (06:11→11:29)
[2023-05-16 07:26] LABS: Alanine Aminotransferase < 9 U/L (7-40); Albumin 3.2 g/dL (3.2-4.8); Alkaline Phosphatase 79 U/L (46-116); Anion Gap 8 (5-15); Aspartate Aminotransferase 13 U/L (13-40); BUN/Creatinine Ratio 10.2 (10.0-20.0); Blood Urea Nitrogen < 5 mg/dL (9-23); Calcium 8.4 mg/dL (8.5-10.1); Carbon Dioxide 25 mmol/L (20-30); Chloride 110 mmol/L (98-107); Glucose 148 mg/dL (74-106); Potassium 3.3 mmol/L (3.5-5.1); Sodium 143 mmol/L (136-145); Total Protein 5.9 g/dL (5.7-8.2)
[2023-05-16] MEDS: ALBUMIN 25% 100 ML IV SCH (07:36)
[2023-05-16 07:42] LABS: Bilirubin, Total 0.8 mg/dL (0.2-1.0)
[2023-05-16] MEDS: D5W/SOD CHLO 0.9% 1,000 ML IV SCH ×2 (07:42→23:10)
[2023-05-16 08:44] LABS: Magnesium 2.3 mg/dL (1.6-2.6)
[2023-05-16] MEDS: PANTOPRAZOLE 40 MG/10 ML VIAL INJ IV SCH (08:49)
[2023-05-16] MEDS: ASCORBIC ACID 500 MG TAB PO SCH (08:49)
[2023-05-16] MEDS: DOCUSATE SOD 100 MG CAP PO SCH ×2 (08:49→22:00)
[2023-05-16] MEDS: LACTULOSE 20Gm/30ML SOLN PO SCH ×2 (08:49→22:00)
[2023-05-16] MEDS: FERROUS SULFATE 325mg EC TAB PO SCH ×2 (08:50→17:13)
[2023-05-16] MEDS: levETIRAcetam 500 MG TAB PO SCH (09:19)
[2023-05-16] MEDS ORDERED: POTASSIUM CHL 20 Meq TABLET PO ONE (11:00)
[2023-05-16] MEDS: SODIUM CHLORIDE 1 GM TAB PO SCH ×2 (11:00→22:00)
[2023-05-16] MEDS ORDERED: MIDODRINE HCL 10 MG TAB PO ONE (11:00)
[2023-05-16] MEDS ORDERED: POTASSIUM CHL 20MEQ/50ML 50 ML IV ONE (11:15)
[2023-05-17] VITALS (101 sets, daily range): BP systolic 48–124; BP diastolic 33–87; PULSE 52–138; RESP 9–32; TEMP 97.1–99.2; O2SAT 94–100
[2023-05-17] MEDS: PANTOPRAZOLE 40 MG/10 ML VIAL INJ IV SCH ×3 (00:45→23:34)
[2023-05-17] MEDS: metroNIDAZOLE 500 MG TAB PO SCH ×4 (00:47→23:35)
[2023-05-17] MEDS: levETIRAcetam 500 MG TAB PO SCH ×3 (00:47→23:35)
[2023-05-17] MEDS: ATORVASTATIN 20 MG TAB PO SCH ×2 (00:47→23:35)
[2023-05-17] MEDS: ACETAMINOPHEN 325 MG TAB PO PRN (01:10)
[2023-05-17] MEDS: DOPamine 1600MCG/ML D5W 250 ML IV SCH ×2 (03:57→14:34)
[2023-05-17] MEDS: MIDODRINE HCL 10 MG TAB PO SCH ×3 (06:00→18:46)
[2023-05-17] MEDS: LEVOTHYROXINE SODIUM 50 MCG TAB PO SCH (07:50)
[2023-05-17] MEDS ORDERED: PANT40T PO (08:40)
[2023-05-17] MEDS ORDERED: FER325T PO (08:40)
[2023-05-17] MEDS ORDERED: MID10T PO (08:40)
[2023-05-17] MEDS ORDERED: SODIUM CHLORIDE 0.9% 2,000 ML IV ONE (08:45)
[2023-05-17] MEDS ORDERED: POTASSIUM CHL 20MEQ/50ML 50 ML IV SCH (08:45)
[2023-05-17] MEDS: FERROUS SULFATE 325mg EC TAB PO SCH ×2 (08:52→18:46)
[2023-05-17] MEDS: DOCUSATE SOD 100 MG CAP PO SCH ×2 (08:56→22:00)
[2023-05-17] MEDS: LACTULOSE 20Gm/30ML SOLN PO SCH ×2 (08:56→22:00)
[2023-05-17] MEDS: ASCORBIC ACID 500 MG TAB PO SCH (08:56)
[2023-05-17] MEDS: SODIUM CHLORIDE 1 GM TAB PO SCH ×2 (10:00→22:00)
[2023-05-17 10:29] LABS: Basophils # (auto) 0.1 10 ^3/uL (0-0.2); Basophils % (auto) 0.6 % (0.0-2.0); Eosinophils # (auto) 0.3 10 ^3/uL (0-0.8); Hematocrit 38.6 % (36.0-46.0); Hemoglobin 12.4 g/dL (12.2-16.2); Lymphocytes # (auto) 2.1 10 ^3/uL (0.4-5.4); Lymphocytes % (auto) 23.9 % (10.0-50.0); Mean Corpuscular Hemoglobin 27.3 pg (28.0-32.0); Mean Corpuscular Volume 85.3 fL (80.0-100.0); Monocytes # (auto) 0.5 10 ^3/uL (0-1.3); Monocytes % (auto) 6.2 % (0.0-12.0); Neutrophils # (auto) 5.7 10 ^3/uL (1.6-8.6); Neutrophils % (auto) 66.3 % (37.0-80.0); Red Blood Cells 4.53 10^6/uL (4.0-5.20); Red Cell Distribution Width 19.4 % (11.8-14.3); White Blood Cell 8.6 10^3/uL (4.4-10.8)
[2023-05-17 10:35] LABS: Chloride 114 mmol/L (98-107); Potassium 3.4 mmol/L (3.5-5.1); Sodium 144 mmol/L (136-145)
[2023-05-17 10:36] LABS: Anion Gap 8 (5-15); Carbon Dioxide 22 mmol/L (20-30)
[2023-05-17 10:37] LABS: Calcium 8.1 mg/dL (8.5-10.1)
[2023-05-17 10:41] LABS: Glucose 172 mg/dL (74-106)
[2023-05-17 10:59] LABS: BUN/Creatinine Ratio 8.9 (10.0-20.0); Blood Urea Nitrogen < 5 mg/dL (9-23)
[2023-05-17] MEDS: D5W/SOD CHLO 0.9% 1,000 ML IV SCH (12:51)
[2023-05-17] MEDS: POTASSIUM CHL 20MEQ/100ML 100 ML IV SCH ×2 (19:45→21:45)
[2023-05-18] VITALS (103 sets, daily range): BP systolic 70–135; BP diastolic 40–74; PULSE 54–118; RESP 12–31; TEMP 97.9–99.6; O2SAT 91–100
[2023-05-18] MEDS: DOPamine 1600MCG/ML D5W 250 ML IV SCH ×2 (00:30→22:07)
[2023-05-18] MEDS: D5W/SOD CHLO 0.9% 1,000 ML IV SCH ×2 (01:50→14:27)
[2023-05-18] MEDS: ALBUMIN 25% 100 ML IV SCH ×3 (02:27→16:14)
[2023-05-18] MEDS: ACETAMINOPHEN 325 MG TAB PO PRN (02:28)
[2023-05-18] MEDS: metroNIDAZOLE 500 MG TAB PO SCH ×3 (06:00→21:39)
[2023-05-18] MEDS: MIDODRINE HCL 10 MG TAB PO SCH ×3 (06:00→18:03)
[2023-05-18] MEDS: LEVOTHYROXINE SODIUM 50 MCG TAB PO SCH (07:00)
[2023-05-18 07:12] LABS: Basophils # (auto) 0.1 10 ^3/uL (0-0.2); Basophils % (auto) 0.8 % (0.0-2.0); Eosinophils # (auto) 0.2 10 ^3/uL (0-0.8); Eosinophils % (auto) 2.3 % (0.0-7.0); Hematocrit 33.5 % (36.0-46.0); Hemoglobin 10.8 g/dL (12.2-16.2); Lymphocytes # (auto) 1.7 10 ^3/uL (0.4-5.4); Lymphocytes % (auto) 21.1 % (10.0-50.0); Mean Corpuscular Hemoglobin 27.4 pg (28.0-32.0); Mean Corpuscular Hgb Conc. 32.2 g/dL (32.0-36.0); Mean Corpuscular Volume 85.2 fL (80.0-100.0); Monocytes # (auto) 0.5 10 ^3/uL (0-1.3); Monocytes % (auto) 6.2 % (0.0-12.0); Neutrophils # (auto) 5.6 10 ^3/uL (1.6-8.6); Neutrophils % (auto) 69.6 % (37.0-80.0); Red Blood Cells 3.94 10^6/uL (4.0-5.20); Red Cell Distribution Width 19.6 % (11.8-14.3); White Blood Cell 8.1 10^3/uL (4.4-10.8)
[2023-05-18 07:30] LABS: Chloride 114 mmol/L (98-107); Potassium 3.7 mmol/L (3.5-5.1); Sodium 145 mmol/L (136-145)
[2023-05-18 07:31] LABS: Anion Gap 9 (5-15); Calcium 8.5 mg/dL (8.5-10.1); Carbon Dioxide 22 mmol/L (20-30)
[2023-05-18 07:36] LABS: Glucose 128 mg/dL (74-106)
[2023-05-18 07:43] LABS: BUN/Creatinine Ratio 9.8 (10.0-20.0); Blood Urea Nitrogen < 5 mg/dL (9-23)
[2023-05-18] MEDS: PANTOPRAZOLE 40 MG/10 ML VIAL INJ IV SCH ×2 (08:24→21:38)
[2023-05-18] MEDS: DOCUSATE SOD 100 MG CAP PO SCH ×2 (08:24→21:38)
[2023-05-18] MEDS: FERROUS SULFATE 325mg EC TAB PO SCH ×2 (08:24→18:02)
[2023-05-18] MEDS: ASCORBIC ACID 500 MG TAB PO SCH (08:24)
[2023-05-18] MEDS: levETIRAcetam 500 MG TAB PO SCH ×2 (08:24→21:39)
[2023-05-18] MEDS: LACTULOSE 20Gm/30ML SOLN PO SCH ×3 (08:25→21:38)
[2023-05-18] MEDS: POLYETHYLENE GLYCOL 17 GM PWDR PO SCH (09:41)
[2023-05-18] MEDS ORDERED: LACTULOSE 20Gm/30ML SOLN PO PRN (14:00)
[2023-05-18] MEDS ORDERED: metroNIDAZOLE 500 MG TAB PO SCH (14:00)
[2023-05-18] MEDS ORDERED: LIDOCAINE 1% (LOCAL ANESTH.) PF 5ml SDV ID ONE (14:30)
[2023-05-18] MEDS: SODIUM CHLOR 0.9% PF (SALINE LOCK) 10ML VIAL/SYR IV SCH (21:38)
[2023-05-18] MEDS: ATORVASTATIN 20 MG TAB PO SCH (21:39)
[2023-05-19] VITALS (81 sets, daily range): BP systolic 59–120; BP diastolic 30–67; PULSE 54–104; RESP 10–29; TEMP 97.2–98.8; O2SAT 92–100
[2023-05-19] MEDS: D5W/SOD CHLO 0.9% 1,000 ML IV SCH ×2 (04:12→17:12)
[2023-05-19 05:01] LABS: Basophils # (auto) 0.1 10 ^3/uL (0-0.2); Basophils % (auto) 0.8 % (0.0-2.0); Eosinophils # (auto) 0.2 10 ^3/uL (0-0.8); Eosinophils % (auto) 3.4 % (0.0-7.0); Hemoglobin 10.1 g/dL (12.2-16.2); Lymphocytes # (auto) 2.2 10 ^3/uL (0.4-5.4); Lymphocytes % (auto) 31.2 % (10.0-50.0); Mean Corpuscular Hemoglobin 27.5 pg (28.0-32.0); Mean Corpuscular Hgb Conc. 32.5 g/dL (32.0-36.0); Mean Corpuscular Volume 84.8 fL (80.0-100.0); Monocytes # (auto) 0.5 10 ^3/uL (0-1.3); Monocytes % (auto) 7.4 % (0.0-12.0); Neutrophils # (auto) 4.1 10 ^3/uL (1.6-8.6); Neutrophils % (auto) 57.2 % (37.0-80.0); Nucleated Red Blood Cells % 0.1 %; Red Blood Cells 3.65 10^6/uL (4.0-5.20); Red Cell Distribution Width 19.7 % (11.8-14.3); White Blood Cell 7.1 10^3/uL (4.4-10.8)
[2023-05-19 05:07] LABS: Anion Gap 8 (5-15); Carbon Dioxide 22 mmol/L (20-30); Chloride 114 mmol/L (98-107); Potassium 3.2 mmol/L (3.5-5.1); Sodium 144 mmol/L (136-145)
[2023-05-19 05:08] LABS: Calcium 8.4 mg/dL (8.5-10.1)
[2023-05-19 05:13] LABS: Glucose 242 mg/dL (74-106)
[2023-05-19 05:20] LABS: BUN/Creatinine Ratio 9.6 (10.0-20.0); Blood Urea Nitrogen < 5 mg/dL (9-23)
[2023-05-19] MEDS: MIDODRINE HCL 10 MG TAB PO SCH ×3 (06:07→18:00)
[2023-05-19] MEDS: LACTULOSE 20Gm/30ML SOLN PO SCH ×3 (06:07→21:50)
[2023-05-19] MEDS: LEVOTHYROXINE SODIUM 50 MCG TAB PO SCH (06:07)
[2023-05-19] MEDS: FERROUS SULFATE 325mg EC TAB PO SCH ×2 (08:23→18:00)
[2023-05-19] MEDS: ACETAMINOPHEN 325 MG TAB PO PRN (08:23)
[2023-05-19] MEDS: POTASSIUM CHL 20MEQ/50ML 50 ML IV SCH ×2 (08:30→10:22)
[2023-05-19] MEDS: PANTOPRAZOLE 40 MG/10 ML VIAL INJ IV SCH ×2 (10:00→21:50)
[2023-05-19] MEDS: levETIRAcetam 500 MG TAB PO SCH ×2 (10:00→21:50)
[2023-05-19] MEDS: DOCUSATE SOD 100 MG CAP PO SCH ×2 (10:00→21:50)
[2023-05-19] MEDS: POLYETHYLENE GLYCOL 17 GM PWDR PO SCH (10:00)
[2023-05-19] MEDS: ASCORBIC ACID 500 MG TAB PO SCH (10:00)
[2023-05-19] MEDS: SODIUM CHLOR 0.9% PF (SALINE LOCK) 10ML VIAL/SYR IV SCH ×2 (10:21→21:51)
[2023-05-19] MEDS ORDERED: SODIUM CHLORIDE 0.9% 1,000 ML IV ONE (15:15)
[2023-05-19] MEDS: ATORVASTATIN 20 MG TAB PO SCH (21:50)
[2023-05-19] MEDS: ALBUMIN 25% 100 ML IV SCH (21:59)
[2023-05-20] VITALS (38 sets, daily range): BP systolic 83–133; BP diastolic 42–109; PULSE 54–94; RESP 10–26; TEMP 97.3–99; O2SAT 97–100
[2023-05-20 05:07] LABS: Basophils # (auto) 0.1 10 ^3/uL (0-0.2); Eosinophils # (auto) 0.4 10 ^3/uL (0-0.8); Eosinophils % (auto) 5.1 % (0.0-7.0); Hematocrit 31.3 % (36.0-46.0); Hemoglobin 10.4 g/dL (12.2-16.2); Lymphocytes # (auto) 2.2 10 ^3/uL (0.4-5.4); Lymphocytes % (auto) 31.3 % (10.0-50.0); Mean Corpuscular Hemoglobin 28.3 pg (28.0-32.0); Mean Corpuscular Hgb Conc. 33.2 g/dL (32.0-36.0); Mean Corpuscular Volume 85.5 fL (80.0-100.0); Monocytes # (auto) 0.5 10 ^3/uL (0-1.3); Monocytes % (auto) 6.5 % (0.0-12.0); Neutrophils % (auto) 56.1 % (37.0-80.0); Nucleated Red Blood Cells % 0.1 %; Red Blood Cells 3.66 10^6/uL (4.0-5.20); Red Cell Distribution Width 19.9 % (11.8-14.3); White Blood Cell 7.1 10^3/uL (4.4-10.8)
[2023-05-20 05:23] LABS: Anion Gap 10 (5-15); Carbon Dioxide 19 mmol/L (20-30); Chloride 114 mmol/L (98-107); Potassium 3.4 mmol/L (3.5-5.1); Sodium 143 mmol/L (136-145)
[2023-05-20 05:24] LABS: Calcium 8.5 mg/dL (8.5-10.1)
[2023-05-20 05:29] LABS: Blood Urea Nitrogen < 5 mg/dL (9-23); Glucose 104 mg/dL (74-106)
[2023-05-20] MEDS: LACTULOSE 20Gm/30ML SOLN PO SCH ×2 (05:34→11:04)
[2023-05-20] MEDS: D5W/SOD CHLO 0.9% 1,000 ML IV SCH (05:34)
[2023-05-20] MEDS: MIDODRINE HCL 10 MG TAB PO SCH ×2 (05:34→10:54)
[2023-05-20] MEDS: ALBUMIN 25% 100 ML IV SCH (05:37)
[2023-05-20] MEDS: LEVOTHYROXINE SODIUM 50 MCG TAB PO SCH (06:31)
[2023-05-20] MEDS: ASCORBIC ACID 500 MG TAB PO SCH (08:01)
[2023-05-20] MEDS: DOCUSATE SOD 100 MG CAP PO SCH (08:01)
[2023-05-20] MEDS: POLYETHYLENE GLYCOL 17 GM PWDR PO SCH (08:01)
[2023-05-20] MEDS: levETIRAcetam 500 MG TAB PO SCH (08:05)
[2023-05-20] MEDS: PANTOPRAZOLE 40 MG/10 ML VIAL INJ IV SCH (08:05)
[2023-05-20] MEDS: FERROUS SULFATE 325mg EC TAB PO SCH (08:06)
[2023-05-20] MEDS: SODIUM CHLOR 0.9% PF (SALINE LOCK) 10ML VIAL/SYR IV SCH (08:06)
[2023-05-20] MEDS ORDERED: SODIUM CHLORIDE 0.9% 1,000 ML IV ONE (09:30)
[2023-05-20] MEDS: POTASSIUM CHL 20MEQ/50ML 50 ML IV SCH ×2 (09:49→10:53)
[2023-05-20] MEDS: DOPamine 1600MCG/ML D5W 250 ML IV SCH (09:50)
== END 2023-05-20 14:10 | disposition hospice, home (50) | DRG 871 ==
LOC: ER 12:58 → EDBD 12:58 → TELE 19:04 → DOU IN ICU 05-05 18:38 → ICU CENTRL 05-05 19:04 → DOU IN ICU 05-13 14:05 → ICU CENTRL 05-13 17:35
PROVIDERS: ADMIT Internal Medicine; ATTEND Internal Medicine
PROC: 30233N1 Transfusion of Nonautologous Red Blood Cells into Peripheral Vein, Percutaneous Approach (ICD-10-PCS; 2023-05-05)
PROC: 0DB68ZX Excision of Stomach, Via Natural or Artificial Opening Endoscopic, Diagnostic (ICD-10-PCS; 2023-05-12)
PROC: 0DB48ZX Excision of Esophagogastric Junction, Via Natural or Artificial Opening Endoscopic, Diagnostic (ICD-10-PCS; 2023-05-12)
PROC: 0DB98ZX Excision of Duodenum, Via Natural or Artificial Opening Endoscopic, Diagnostic (ICD-10-PCS; principal; 2023-05-12 16:15)
PROC: 03HY32Z Insertion of Monitoring Device into Upper Artery, Percutaneous Approach (ICD-10-PCS; 2023-05-16)
PROC: 02HV33Z Insertion of Infusion Device into Superior Vena Cava, Percutaneous Approach (ICD-10-PCS; 2023-05-18)
PROC: B548ZZA Ultrasonography of Superior Vena Cava, Guidance (ICD-10-PCS; 2023-05-18)
DX: A41.02 Sepsis due to Methicillin resistant Staphylococcus aureus (principal); J96.21 Acute and chronic respiratory failure with hypoxia; R65.21 Severe sepsis with septic shock; N39.0 Urinary tract infection, site not specified; A04.72 Enterocolitis due to Clostridium difficile, not specified as recurrent; F03.94 Unspecified dementia, unspecified severity, with anxiety; K56.41 Fecal impaction; I10 Essential (primary) hypertension; E78.5 Hyperlipidemia, unspecified; K29.70 Gastritis, unspecified, without bleeding; Z66 Do not resuscitate; E03.9 Hypothyroidism, unspecified; G40.909 Epilepsy, unspecified, not intractable, without status epilepticus; D50.9 Iron deficiency anemia, unspecified; M19.90 Unspecified osteoarthritis, unspecified site; R79.89 Other specified abnormal findings of blood chemistry; R00.1 Bradycardia, unspecified; K44.9 Diaphragmatic hernia without obstruction or gangrene; Z86.73 Personal history of transient ischemic attack (TIA), and cerebral infarction without residual deficits; K21.00 Gastro-esophageal reflux disease with esophagitis, without bleeding; Z88.0 Allergy status to penicillin; Z88.1 Allergy status to other antibiotic agents; Z74.01 Bed confinement status
CPT/HCPCS: 36415; 36556; 36569; 43239; 70450; 71045; 74176; 74177; 80048; 80053; 80202; 81001; 82533; 82607; 82728; 83540; 83550; 83605; 83690; 83735; 84132; 84436; 84443; 84480; 84484; 85014; 85018; 85025; 85610; 85730; 86850; 86900; 86901; 86920; 87040; 87077; 87081; 87086; 87186; 87493; 93005; 93306; 96361; 96365; 96367; 96368; 96375; 99291; C9113; G0378; J1335; J1956; J2250; J3480; J3490; J7042; P9047

== ENCOUNTER 2023-07-06 05:24 | Emergency (ER) | payer OTHER, MEDICAID ==
[~2023-07-06] VITALS: Ht 170.2 cm; Wt 63.0 kg
[~2023-07-06 05:24] MED LIST changes: +BUSP10TA90 PO; -CLOP75TA28 PO; +DOCU-265 PO; +DULO60CA41 PO; +FER325T PO; +LACT10SO3 PO; +MID10T PO; -OMEP20CA74 PO; +PANT40T PO; +POLY335015 PO
[2023-07-06] MEDS ORDERED: levETIRAcetam 1000 mg/100ml 100 ML IV ONE (05:45)
[2023-07-06] MEDS ORDERED: LORazepam 2MG/ML-1ML VIAL IV ONE ×2 (05:45→06:30)
[2023-07-06 06:00] VITALS: PULSE 92; RESP 15; TEMP 98.9; O2SAT 97
[2023-07-06] MEDS ORDERED: SODIUM CHLORIDE 0.9% 1,000 ML IVB ONE (06:30)
[2023-07-06 06:57] LABS: Basophils # (auto) 0.1 10 ^3/uL (0-0.2); Basophils % (auto) 0.8 % (0.0-2.0); Eosinophils # (auto) 0.1 10 ^3/uL (0-0.8); Monocytes # (auto) 0.3 10 ^3/uL (0-1.3)
[2023-07-06 07:00] LABS: Eosinophils % (auto) 1.4 % (0.0-7.0); Hematocrit 42.2 % (36.0-46.0); Hemoglobin 13.4 g/dL (12.2-16.2); Lymphocytes # (auto) 1.7 10 ^3/uL (0.4-5.4); Lymphocytes % (auto) 24.9 % (10.0-50.0); Mean Corpuscular Hgb Conc. 31.7 g/dL (32.0-36.0); Mean Corpuscular Volume 88.3 fL (80.0-100.0); Monocytes % (auto) 4.9 % (0.0-12.0); Neutrophils # (auto) 4.7 10 ^3/uL (1.6-8.6); Nucleated Red Blood Cells % 0.1 %; Red Blood Cells 4.78 10^6/uL (4.0-5.20); Red Cell Distribution Width 16.4 % (11.8-14.3); White Blood Cell 6.9 10^3/uL (4.4-10.8)
[2023-07-06 07:20] LABS: Albumin 3.7 g/dL (3.2-4.8); Alkaline Phosphatase 65 U/L (46-116); Anion Gap 8 (5-15); Aspartate Aminotransferase 25 U/L (13-40); Bilirubin, Total 0.5 mg/dL (0.2-1.0); Calcium 8.9 mg/dL (8.7-10.4); Carbon Dioxide 23 mmol/L (20-30); Chloride 108 mmol/L (98-107); Glucose 110 mg/dL (74-106); Magnesium 1.7 mg/dL (1.6-2.6); Potassium 4.3 mmol/L (3.5-5.1); Sodium 139 mmol/L (136-145); Total Protein 6.8 g/dL (5.7-8.2)
[2023-07-06 07:26] LABS: Alanine Aminotransferase < 9 U/L (7-40); BUN/Creatinine Ratio 9.3 (10.0-20.0); Blood Urea Nitrogen < 5 mg/dL (9-23)
[2023-07-06 08:00] VITALS: BP 160/75; PULSE 85; RESP 13; O2SAT 98
[2023-07-06 08:02] LABS: Urine Bacteria MOD /hpf (None Seen); Urine Blood 2+ /uL (Negative); Urine Clarity CLOUDY (Clear); Urine Color Yellow (Yellow); Urine Mucus FEW (None Seen); Urine Protein, UAD 1+ (Negative); Urine Specific Gravity 1.019 (1.001-1.035); Urine Urobilinogen Normal (Negative); Urine WBC 208 /hpf (0 - 5); Urine WBC Clumps PRESENT /hpf (None Seen)
[2023-07-06 08:14] LABS: Platelet Estimate Decreased
[2023-07-06] MEDS ORDERED: levoFLOXacin 500MG 100 ML IV ONE (08:30)
[2023-07-06] MEDS ORDERED: LEVE500T40 PO (09:20)
[2023-07-06] MEDS ORDERED: CIPR-173 PO (09:20)
== END 2023-07-06 09:28 | disposition home or self-care (01) ==
LOC: EDBD 05:24 → ER 05:24
DX: R56.9 Unspecified convulsions (principal); N39.0 Urinary tract infection, site not specified; I10 Essential (primary) hypertension; E03.9 Hypothyroidism, unspecified; K21.9 Gastro-esophageal reflux disease without esophagitis; E78.5 Hyperlipidemia, unspecified; Z86.73 Personal history of transient ischemic attack (TIA), and cerebral infarction without residual deficits; Z79.2 Long term (current) use of antibiotics; Z79.899 Other long term (current) drug therapy; Z88.0 Allergy status to penicillin; Z88.1 Allergy status to other antibiotic agents; Z88.2 Allergy status to sulfonamides
CPT/HCPCS: 36415; 70450; 71045; 80053; 81001; 83605; 83735; 85025; 87040; 96365; 96367; 96375; 96376; 99285; J1953; J1956; J2060

== ENCOUNTER 2023-12-06 03:59 | Inpatient (IN) | payer OTHER, MEDICAID ==
[~2023-12-06] VITALS: Ht 170.2 cm; Wt 53.7 kg
[2023-12-06] VITALS (34 sets, daily range): BP systolic 86–111; BP diastolic 54–68; PULSE 77–124; RESP 14–29; TEMP 98.6–99.1; O2SAT 94–99
[~2023-12-06 03:59] MED LIST changes: +CIPR-173 PO
[2023-12-06] MEDS: AZITHROMYCIN 500MG/ 250ML 250 ML IV ONE ×2 (04:30→06:40)
[2023-12-06 04:37] LABS: Basophils # (auto) 0.1 10 ^3/uL (0-0.2); Eosinophils # (auto) 0 10 ^3/uL (0-0.8); Monocytes # (auto) 0.9 10 ^3/uL (0-1.3); Nucleated Red Blood Cells % 0.1 %
[2023-12-06 04:38] LABS: Basophils % (auto) 0.4 % (0.0-2.0); Hematocrit 40.7 % (36.0-46.0); Hemoglobin 12.8 g/dL (12.2-16.2); Lymphocytes # (auto) 1.9 10 ^3/uL (0.4-5.4); Lymphocytes % (auto) 9.2 % (10.0-50.0); Mean Corpuscular Hemoglobin 27.6 pg (28.0-32.0); Mean Corpuscular Hgb Conc. 31.4 g/dL (32.0-36.0); Mean Corpuscular Volume 87.7 fL (80.0-100.0); Monocytes % (auto) 4.4 % (0.0-12.0); Neutrophils # (auto) 17.4 10 ^3/uL (1.6-8.6); Red Blood Cells 4.64 10^6/uL (4.0-5.20); Red Cell Distribution Width 15.5 % (11.8-14.3); White Blood Cell 20.2 10^3/uL (4.4-10.8)
[2023-12-06 04:39] LABS: Chloride 108 mmol/L (98-107); Potassium 2.8 mmol/L (3.5-5.1); Sodium 147 mmol/L (136-145)
[2023-12-06 04:40] LABS: Anion Gap 14 (5-15); Calcium 9.8 mg/dL (8.7-10.4); Carbon Dioxide 25 mmol/L (20-30)
[2023-12-06 04:45] LABS: BUN/Creatinine Ratio 17.3 (10.0-20.0); Blood Urea Nitrogen 14 mg/dL (9-23); Glucose 244 mg/dL (74-106)
[2023-12-06] MEDS: ETOMIDATE (2MG/ML) 20ML VIAL IV ONE ×2 (05:25→05:39)
[2023-12-06] MEDS: ROCURONIUM 10MG/ML 10ML VIAL IV ONE ×2 (05:26→05:39)
[2023-12-06] MEDS: MIDAZOLAM DRIP 50 mg/50mL 50 ML IV ONE (05:30)
[2023-12-06] MEDS: MIDAZOLAM DRIP 50 mg/50mL 50 ML IV SCH (06:00)
[2023-12-06] MEDS: SODIUM CHLORIDE 0.9% 1,000 ML IV ONE ×2 (06:02→07:12)
[2023-12-06] MEDS: cefTRIAXone 1GM/50ML D5W 50 ML IV ONE (06:36)
[2023-12-06] MEDS: levoFLOXacin 500MG 100 ML IV ONE (06:49)
[2023-12-06 07:10] LABS: Base Excess -2.7 mmol/L (-2.0-2.0)
[2023-12-06] MEDS: NOREPINEPHRINE 8 MG/250ML KIT 250 ML IV SCH (08:35)
[2023-12-06] MEDS ORDERED: MORPHINE SULFATE INJ 2 MG/ml SYRG IV PRN ×4 (09:45→10:00)
[2023-12-06] MEDS ORDERED: ONDANSETRON HCL 4 MG/2 ML VIAL IV PRN ×2 (09:45→10:00)
[2023-12-06] MEDS ORDERED: NITROGLYCERIN 0.4 MG SL TAB SL PRN ×2 (09:45→10:00)
[2023-12-06] MEDS ORDERED: DOCUSATE SOD 100 MG CAP PO PRN ×2 (09:45→10:00)
[2023-12-06] MEDS ORDERED: SODIUM CHLORIDE 0.9% 1,000 ML IV SCH ×2 (09:45→10:00)
[2023-12-06] MEDS ORDERED: ENOXAPARIN SOD 40 MG/0.4 ML SYRINGE SC SCH ×2 (10:00→10:15)
[2023-12-06] MEDS ORDERED: AZITHROMYCIN 500MG/ 250ML 250 ML IV SCH (10:00)
[2023-12-06 10:07] LABS: Urine Bacteria FEW /hpf (None Seen); Urine Blood TRACE /uL (Negative); Urine Hyaline Cast FEW /lpf (0 - 2); Urine Mucus FEW (None Seen); Urine Protein, UAD 2+ (Negative); Urine Specific Gravity 1.024 (1.001-1.035); Urine Urobilinogen 2 mg/dL (Negative); Urine WBC 26 /hpf (0 - 5)
[2023-12-06 10:09] LABS: Urine Clarity Cloudy (Clear); Urine Color Yellow (Yellow)
[2023-12-06] MEDS: POTASSIUM CHL 20MEQ/100ML 100 ML IV SCH (12:00)
[2023-12-06] MEDS ORDERED: LORazepam 2MG/ML-1ML VIAL IV ONE (12:00)
[2023-12-06] MEDS: SOD CHL 0.45% 1,000 ML IV SCH (12:00)
[2023-12-06] MEDS ORDERED: LEVO50TA7 PO (15:00)
[2023-12-06] MEDS ORDERED: LEVE100020 PO (15:00)
[2023-12-06] MEDS: ALBUMIN 5% 250 ML IV ONE (17:17)
[2023-12-06] MEDS: levETIRAcetam 500 MG TAB PO SCH (21:36)
[2023-12-07] VITALS (42 sets, daily range): BP systolic 73–119; BP diastolic 38–77; PULSE 70–102; RESP 12–33; TEMP 98.2–98.6; O2SAT 92–98
[2023-12-07 06:34] LABS: Albumin 3.3 g/dL (3.2-4.8); Alkaline Phosphatase 73 U/L (46-116); Anion Gap 8 (5-15); Aspartate Aminotransferase 14 U/L (13-40); BUN/Creatinine Ratio 18.9 (10.0-20.0); Bilirubin, Total 0.7 mg/dL (0.2-1.0); Blood Urea Nitrogen 14 mg/dL (9-23); Calcium 9.2 mg/dL (8.7-10.4); Carbon Dioxide 26 mmol/L (20-30); Chloride 108 mmol/L (98-107); Glucose 132 mg/dL (74-106); Potassium 2.7 mmol/L (3.5-5.1); Sodium 142 mmol/L (136-145); Total Protein 6.7 g/dL (5.7-8.2)
[2023-12-07 06:36] LABS: Basophils # (auto) 0 10 ^3/uL (0-0.2); Basophils % (auto) 0.2 % (0.0-2.0); Eosinophils # (auto) 0 10 ^3/uL (0-0.8); Hematocrit 33.7 % (36.0-46.0); Hemoglobin 10.8 g/dL (12.2-16.2); Lymphocytes # (auto) 1.4 10 ^3/uL (0.4-5.4); Lymphocytes % (auto) 8.3 % (10.0-50.0); Mean Corpuscular Hemoglobin 27.1 pg (28.0-32.0); Mean Corpuscular Hgb Conc. 32.1 g/dL (32.0-36.0); Mean Corpuscular Volume 84.4 fL (80.0-100.0); Monocytes # (auto) 0.5 10 ^3/uL (0-1.3); Monocytes % (auto) 3.2 % (0.0-12.0); Neutrophils # (auto) 14.8 10 ^3/uL (1.6-8.6); Neutrophils % (auto) 88.3 % (37.0-80.0); Nucleated Red Blood Cells % 0.1 %; Red Cell Distribution Width 15.2 % (11.8-14.3); White Blood Cell 16.7 10^3/uL (4.4-10.8)
[2023-12-07 06:41] LABS: Alanine Aminotransferase < 9 U/L (7-40)
[2023-12-07] MEDS ORDERED: cefTRIAXone 1GM/50ML D5W 50 ML IV SCH (09:00)
[2023-12-07] MEDS: cefTRIAXone 1GM/50ML D5W 50 ML IV SCH (09:08)
[2023-12-07] MEDS: LEVOTHYROXINE SODIUM 50 MCG TAB PO SCH (10:13)
[2023-12-07] MEDS: PANTOPRAZOLE 40 MG/10 ML VIAL INJ IV SCH (10:13)
[2023-12-07] MEDS: AZITHROMYCIN 500MG/ 250ML 250 ML IV SCH (10:19)
[2023-12-07 10:57] LABS: Magnesium 1.3 mg/dL (1.6-2.6)
[2023-12-07] MEDS ORDERED: ENOXAPARIN SOD 80 MG/0.8ML SYRINGE SC SCH (12:51)
[2023-12-07] MEDS: LACTATED RINGER'S 1,000 ML IV SCH (13:00)
[2023-12-07] MEDS ORDERED: VANCOMYCIN PER PHARMACY 0 MG IV SCH (13:00)
[2023-12-07] MEDS: POTASSIUM CHL 20MEQ/100ML 100 ML IV SCH (13:05)
[2023-12-07] MEDS ORDERED: Jevity 1.2 Cal/Fiber 1 Liter GT SCH (14:45)
[2023-12-07] MEDS ORDERED: DEXTROSE (50%) 50ML SYRG IV PRN (14:45)
[2023-12-07 14:51] LABS: Magnesium 1.3 mg/dL (1.6-2.6)
[2023-12-07 14:53] LABS: Base Excess -0.1 mmol/L (-2.0-2.0)
[2023-12-07] MEDS ORDERED: VANCOMYCIN 1GM/200ML 200 ML IV ONE (15:30)
[2023-12-07 15:52] LABS: COVID19 ANTIGEN SOFIA FIA NEGATIVE (NEGATIVE); Rapid Influenza A Negative (Negative); Rapid Influenza B Negative (Negative)
[2023-12-07] MEDS: InsuLIN REG 1unit/0.01ml Soln (100units/ml) SC SCH (17:00)
[2023-12-07] MEDS: VANCOMYCIN 1GM/200ML 200 ML IV SCH (17:17)
[2023-12-07] MEDS: ACCU-CHEK COMFORT CURVE STRIP VI SCH (17:17)
[2023-12-07] MEDS: MEROPENEM 1GM IVPB 50 ML IV SCH (17:37)
[2023-12-07 17:59] LABS: INR 1.24 (0.9-1.15); Partial Thromboplastin Time 27.1 SEC (24.5-34.5); Prothrombin Time 12.9 sec (9.3-11.8)
[2023-12-07] MEDS: MAGNESIUM SULFATE 1GM/100ML 100 ML IV SCH (19:00)
[2023-12-07 20:30] LABS: % Iron Saturation 10.7 % (15-50)
[2023-12-07] MEDS: fentaNYL Drip 2500mCg/250mlNS 250 ML IV SCH (21:09)
[2023-12-07] MEDS: ENOXAPARIN SOD 80 MG/0.8ML SYRINGE SC SCH (21:25)
[2023-12-07] MEDS: methylPREDNISolone SOD SUCC 40 MG/ML VL IV ONE (21:25)
[2023-12-07] MEDS: DOCUSATE ORAL LIQUID 100 MG/10 ML UD GT SCH (22:00)
[2023-12-07] MEDS: POTASSIUM CHL 20MEQ/100ML 100 ML IV ONE (22:24)
[2023-12-07] MEDS: levETIRAcetam 1000 mg/100ml 100 ML IV SCH (23:30)
[2023-12-07] MEDS: ALBUTEROL SULF 2.5 MG/0.5ML(0.5%) NEB SOLN NEB SCH (23:32)
[2023-12-07] MEDS: IPRATROPIUM BROM 0.5 MG/2.5ML INH SOL NEB SCH (23:32)
[2023-12-08] VITALS (67 sets, daily range): BP systolic 78–133; BP diastolic 44–81; PULSE 75–112; RESP 19–37; TEMP 96.3–98.1; O2SAT 93–99
[2023-12-08] MEDS: MAGNESIUM SULFATE 1GM/100ML 100 ML IV ONE ×2 (00:29→01:19)
[2023-12-08 05:07] LABS: Hemoglobin 10.3 g/dL (12.2-16.2); Mean Corpuscular Hemoglobin 27.1 pg (28.0-32.0); Mean Corpuscular Hgb Conc. 32.1 g/dL (32.0-36.0); Mean Corpuscular Volume 84.3 fL (80.0-100.0); Red Blood Cells 3.79 10^6/uL (4.0-5.20); Red Cell Distribution Width 15.6 % (11.8-14.3); White Blood Cell 21.9 10^3/uL (4.4-10.8)
[2023-12-08 05:18] LABS: Alkaline Phosphatase 87 U/L (46-116); Anion Gap 7 (5-15); Aspartate Aminotransferase 14 U/L (13-40); BUN/Creatinine Ratio 17.2 (10.0-20.0); Basophils % (manual) 0 (0.0-2.0); Bilirubin, Total 0.4 mg/dL (0.2-1.0); Blast Cells 0; Blood Urea Nitrogen 11 mg/dL (9-23); Calcium 9.1 mg/dL (8.5-10.1); Carbon Dioxide 24 mmol/L (20-30); Chloride 110 mmol/L (98-107); Creatine Kinase IFCC < 15 U/L (34-145); Eosinophils % (manual) 0 (0-7); Glucose 223 mg/dL (74-106); Lymphocytes % (manual) 0 (10.0-50.0); Metamyelocytes % 0; Monocytes % (manual) 0 (0-12); Myelocytes % 0; Phosphorus 2.7 mg/dL (2.4-5.1); Potassium 3.6 mmol/L (3.5-5.1); Promyelocytes % 0; Reactive Lymphocytes 0; Sodium 141 mmol/L (136-145); Total Protein 6.2 g/dL (5.7-8.2)
[2023-12-08 05:19] LABS: Alanine Aminotransferase < 9 U/L (7-40)
[2023-12-08 06:08] LABS: Band Neutrophils % (manual) 2
[2023-12-08 06:09] LABS: Large Platelets FEW; Platelet Estimate Increased
[2023-12-08 06:49] LABS: Base Excess -0.5 mmol/L (-2.0-2.0)
[2023-12-08] MEDS ORDERED: ENOXAPARIN SOD 40 MG/0.4 ML SYRINGE SC SCH (10:00)
[2023-12-08] MEDS ORDERED: THIAMINE 100mg/ml INJ (200mg/2ml VIAL) IM ONE (10:00)
[2023-12-08] MEDS ORDERED: DEXTROSE (50%) 50ML SYRG IV PRN (10:15)
[2023-12-08] MEDS ORDERED: TPN PER PHARMACY 0 ML IV SCH (10:15)
[2023-12-08] MEDS: methylPREDNISolone SOD SUCC 40 MG/ML VL IV SCH (10:34)
[2023-12-08] MEDS: THIAMINE 100mg/ml INJ (200mg/2ml VIAL) IV ONE (10:56)
[2023-12-08] MEDS: LEVOTHYROXINE SODIUM 25 MCG TAB PO SCH (10:57)
[2023-12-08 11:00] LABS: Folate (Folic Acid) 15.15 ng/mL (>5.38)
[2023-12-08] MEDS: INSULIN LANTUS (GLARGINE) 1 /0.01ml (100units/ml) SC ONE (11:32)
[2023-12-08] MEDS: ACCU-CHEK COMFORT CURVE STRIP VI SCH (12:47)
[2023-12-08] MEDS: IRON SUCROSE COMPLEX 100 ML IV SCH (12:47)
[2023-12-08] MEDS: InsuLIN REG 1unit/0.01ml Soln (100units/ml) SC SCH (12:49)
[2023-12-08] MEDS: AMIODARONE BOLUS KIT 100 ML IV ONE (16:39)
[2023-12-08] MEDS: LEVOTHYROXINE SODIUM 100 MCG/5 ML INJ IV ONE (17:08)
[2023-12-08] MEDS ORDERED: TPN*HIGH CONC* PER PHARMACY IV NR (20:00)
[2023-12-08] MEDS: [UNRECOGNIZED DRUG - OTHER] IV NR (20:37)
[2023-12-08] MEDS: SODIUM PHOSPHATES IV NR (20:37)
[2023-12-08] MEDS: FAT EMULSION30 IV NR (20:37)
[2023-12-08] MEDS: POTASSIUM ACETATE IV NR (20:37)
[2023-12-08] MEDS: AMIODARONE HCL 200 MG TAB PO SCH (22:07)
[2023-12-08] MEDS: MUPIROCIN 2% OINT 15gm or 22gm FOR MRSA NARES EACHNOSTRI SCH (22:08)
[2023-12-09] VITALS (112 sets, daily range): BP systolic 93–131; BP diastolic 6–79; PULSE 72–102; RESP 15–26; TEMP 96.4–98.8; O2SAT 95–99
[2023-12-09 04:16] LABS: Hematocrit 30.5 % (36.0-46.0); Hemoglobin 9.6 g/dL (12.2-16.2); Mean Corpuscular Hemoglobin 27.1 pg (28.0-32.0); Mean Corpuscular Hgb Conc. 31.6 g/dL (32.0-36.0); Mean Corpuscular Volume 85.7 fL (80.0-100.0); Red Blood Cells 3.55 10^6/uL (4.0-5.20); Red Cell Distribution Width 15.3 % (11.8-14.3); White Blood Cell 25.8 10^3/uL (4.4-10.8)
[2023-12-09 04:31] LABS: Basophils % (manual) 0 (0.0-2.0); Blast Cells 0; Eosinophils % (manual) 0 (0-7); Metamyelocytes % 0; Myelocytes % 0; Promyelocytes % 0; Reactive Lymphocytes 0
[2023-12-09 04:42] LABS: Alanine Aminotransferase < 9 U/L (7-40); Albumin 2.9 g/dL (3.2-4.8); Alkaline Phosphatase 79 U/L (46-116); Anion Gap 10 (5-15); Aspartate Aminotransferase 9 U/L (13-40); BUN/Creatinine Ratio 18.5 (10.0-20.0); Bilirubin, Total 0.2 mg/dL (0.2-1.0); Blood Urea Nitrogen 12 mg/dL (9-23); Calcium 8.8 mg/dL (8.5-10.1); Carbon Dioxide 22 mmol/L (20-30); Chloride 112 mmol/L (98-107); Glucose 169 mg/dL (74-106); Phosphorus 3.6 mg/dL (2.4-5.1); Potassium 2.9 mmol/L (3.5-5.1); Sodium 144 mmol/L (136-145); Total Protein 6.1 g/dL (5.7-8.2)
[2023-12-09 05:31] LABS: Band Neutrophils % (manual) 2; Lymphocytes % (manual) 7 (10.0-50.0); Monocytes % (manual) 4 (0-12); Platelet Estimate Adequate
[2023-12-09 08:00] LABS: Base Excess -0.5 mmol/L (-2.0-2.0)
[2023-12-09] MEDS: POTASSIUM CHL 20MEQ/100ML 100 ML IV SCH (08:07)
[2023-12-09] MEDS: ENOXAPARIN SOD 60 MG/0.6 ML SYRINGE SC SCH (09:10)
[2023-12-09] MEDS: INSULIN LANTUS (GLARGINE) 1 /0.01ml (100units/ml) SC SCH (09:54)
[2023-12-09] MEDS ORDERED: METH-928 PO (13:35)
[2023-12-09] MEDS ORDERED: CLOP75TA70 PO (13:36)
[2023-12-09] MEDS: TPN*HIGH CONC* PER PHARMACY IV NR (21:22)
[2023-12-09] MEDS: metroNIDAZOLE 500MG/100ML 100 ML IV SCH (22:44)
[2023-12-09] MEDS: CEFEPIME 2GM/50ML 50 ML IV SCH (23:04)
[2023-12-10] VITALS (109 sets, daily range): BP systolic 83–121; BP diastolic 46–81; PULSE 64–102; RESP 13–28; TEMP 97.2–99.1; O2SAT 93–100
[2023-12-10 04:52] LABS: Basophils # (auto) 0 10 ^3/uL (0-0.2); Basophils % (auto) 0.1 % (0.0-2.0); Eosinophils # (auto) 0 10 ^3/uL (0-0.8); Hematocrit 28.5 % (36.0-46.0); Hemoglobin 9.3 g/dL (12.2-16.2); Lymphocytes # (auto) 1.4 10 ^3/uL (0.4-5.4); Lymphocytes % (auto) 7.5 % (10.0-50.0); Mean Corpuscular Hemoglobin 27.1 pg (28.0-32.0); Mean Corpuscular Hgb Conc. 32.6 g/dL (32.0-36.0); Mean Corpuscular Volume 83.1 fL (80.0-100.0); Monocytes % (auto) 5.3 % (0.0-12.0); Neutrophils # (auto) 16.3 10 ^3/uL (1.6-8.6); Neutrophils % (auto) 87.1 % (37.0-80.0); Red Blood Cells 3.42 10^6/uL (4.0-5.20); Red Cell Distribution Width 15.4 % (11.8-14.3); White Blood Cell 18.7 10^3/uL (4.4-10.8)
[2023-12-10 04:54] LABS: Alkaline Phosphatase 68 U/L (46-116); Anion Gap 6 (5-15); BUN/Creatinine Ratio 34.8 (10.0-20.0); Blood Urea Nitrogen 16 mg/dL (9-23); Calcium 8.7 mg/dL (8.7-10.4); Carbon Dioxide 29 mmol/L (20-30); Chloride 110 mmol/L (98-107); Glucose 115 mg/dL (74-106); Magnesium 1.6 mg/dL (1.6-2.6); Potassium 3.4 mmol/L (3.5-5.1); Sodium 145 mmol/L (136-145)
[2023-12-10 04:55] LABS: Albumin 2.9 g/dL (3.2-4.8); Aspartate Aminotransferase < 8 U/L (13-40); Bilirubin, Total 0.2 mg/dL (0.2-1.0); Phosphorus 2.7 mg/dL (2.4-5.1); Total Protein 5.9 g/dL (5.7-8.2)
[2023-12-10 05:23] LABS: Alanine Aminotransferase < 9 U/L (7-40)
[2023-12-10 06:46] LABS: Base Excess 2.8 mmol/L (-2.0-2.0)
[2023-12-10] MEDS: POTASSIUM CHL 20MEQ/100ML 100 ML IV SCH (08:55)
[2023-12-10] MEDS: MAGNESIUM SULFATE 1GM/100ML 100 ML IV SCH ×2 (08:59→13:00)
[2023-12-10] MEDS ORDERED: METOCLOPRAMIDE HCL 5MG/ml INJ 2ml VIAL IV PRN (09:30)
[2023-12-10] MEDS: methylPREDNISolone SOD SUCC 40 MG/ML VL IV SCH (09:50)
[2023-12-10] MEDS: LEVOTHYROXINE SODIUM 100 MCG/5 ML INJ IV SCH (10:00)
[2023-12-10] MEDS: FUROSEMIDE 20 MG/2 ML VIAL IV SCH (17:50)
[2023-12-10] MEDS: TPN*HIGH CONC* PER PHARMACY IV NR (20:40)
[2023-12-11] VITALS (112 sets, daily range): BP systolic 87–125; BP diastolic 50–67; PULSE 77–108; RESP 14–24; TEMP 98.4–99.9; O2SAT 92–98
[2023-12-11 04:32] LABS: Hematocrit 30.2 % (36.0-46.0); Hemoglobin 9.8 g/dL (12.2-16.2); Mean Corpuscular Hgb Conc. 32.4 g/dL (32.0-36.0); Mean Corpuscular Volume 83.2 fL (80.0-100.0); Red Blood Cells 3.63 10^6/uL (4.0-5.20); Red Cell Distribution Width 15.2 % (11.8-14.3)
[2023-12-11 04:38] LABS: Albumin 2.9 g/dL (3.2-4.8); Alkaline Phosphatase 69 U/L (46-116); Anion Gap 1 (5-15); Aspartate Aminotransferase < 8 U/L (13-40); BUN/Creatinine Ratio 53.7 (10.0-20.0); Bilirubin, Total 0.2 mg/dL (0.2-1.0); Blood Urea Nitrogen 22 mg/dL (9-23); Calcium 8.6 mg/dL (8.7-10.4); Carbon Dioxide 32 mmol/L (20-30); Chloride 106 mmol/L (98-107); Glucose 105 mg/dL (74-106); Magnesium 1.7 mg/dL (1.6-2.6); Phosphorus 2.4 mg/dL (2.4-5.1); Sodium 139 mmol/L (136-145)
[2023-12-11 04:40] LABS: Alanine Aminotransferase < 9 U/L (7-40)
[2023-12-11 06:29] LABS: Basophils % (manual) 0 (0.0-2.0); Blast Cells 0; Metamyelocytes % 0; Myelocytes % 0; Promyelocytes % 0; Reactive Lymphocytes 0
[2023-12-11] MEDS ORDERED: DEXTROSE (50%) 50ML SYRG IV PRN (08:15)
[2023-12-11] MEDS ORDERED: Jevity 1.2 Cal/Fiber 1 Liter GT SCH (08:15)
[2023-12-11 08:27] LABS: Band Neutrophils % (manual) 1; Eosinophils % (manual) 2 (0-7); Lymphocytes % (manual) 26 (10.0-50.0); Monocytes % (manual) 7 (0-12)
[2023-12-11 08:28] LABS: Platelet Estimate Adequate
[2023-12-11] MEDS: MAGNESIUM SULFATE 1GM/100ML 100 ML IV ONE (09:03)
[2023-12-11] MEDS: ACCU-CHEK COMFORT CURVE STRIP VI SCH (09:16)
[2023-12-11 09:19] LABS: Base Excess 7.2 mmol/L (-2.0-2.0)
[2023-12-11] MEDS: InsuLIN REG 1unit/0.01ml Soln (100units/ml) SC SCH ×2 (11:32→22:00)
[2023-12-11] MEDS ORDERED: METOCLOPRAMIDE HCL 5MG/ml INJ 2ml VIAL IV PRN (11:45)
[2023-12-12] VITALS (107 sets, daily range): BP systolic 82–120; BP diastolic 41–72; PULSE 77–108; RESP 15–28; TEMP 88.7–99.3; O2SAT 90–99
[2023-12-12 04:02] LABS: Hematocrit 31.7 % (36.0-46.0); Hemoglobin 10.4 g/dL (12.2-16.2); Mean Corpuscular Hemoglobin 27.1 pg (28.0-32.0); Mean Corpuscular Hgb Conc. 32.8 g/dL (32.0-36.0); Mean Corpuscular Volume 82.7 fL (80.0-100.0); Red Blood Cells 3.83 10^6/uL (4.0-5.20); Red Cell Distribution Width 15.2 % (11.8-14.3)
[2023-12-12 04:09] LABS: Basophils % (manual) 0 (0.0-2.0); Blast Cells 0; Eosinophils % (manual) 0 (0-7); Metamyelocytes % 0; Myelocytes % 0; Promyelocytes % 0; Reactive Lymphocytes 0
[2023-12-12 04:36] LABS: Alanine Aminotransferase < 9 U/L (7-40); Albumin 2.9 g/dL (3.2-4.8); Alkaline Phosphatase 70 U/L (46-116); Aspartate Aminotransferase 15 U/L (13-40); BUN/Creatinine Ratio 57.5 (10.0-20.0); Bilirubin, Total 0.3 mg/dL (0.2-1.0); Blood Urea Nitrogen 23 mg/dL (9-23); Calcium 8.7 mg/dL (8.7-10.4); Chloride 103 mmol/L (98-107); Glucose 86 mg/dL (74-106); Magnesium 1.7 mg/dL (1.6-2.6); Phosphorus 2.8 mg/dL (2.4-5.1); Potassium 3.7 mmol/L (3.5-5.1); Sodium 139 mmol/L (136-145); Total Protein 6.2 g/dL (5.7-8.2)
[2023-12-12 04:51] LABS: Anion Gap 6 (5-15); Carbon Dioxide 30 mmol/L (20-30)
[2023-12-12 06:28] LABS: Band Neutrophils % (manual) 1; Lymphocytes % (manual) 25 (10.0-50.0); Monocytes % (manual) 4 (0-12)
[2023-12-12 06:29] LABS: Anisocytosis Slight; Ovalocytes FEW; Platelet Estimate Adequate
[2023-12-12 08:00] LABS: Base Excess 9.1 mmol/L (-2.0-2.0)
[2023-12-12] MEDS: FUROSEMIDE 20 MG/2 ML VIAL IV SCH (11:20)
[2023-12-12] MEDS: LEVOTHYROXINE SODIUM 50 MCG TAB GT ONE (12:20)
[2023-12-12] MEDS: VANCOMYCIN 500 MG in D5W 5% 100 ML IV ONE (14:04)
[2023-12-13] VITALS (103 sets, daily range): BP systolic 84–122; BP diastolic 48–74; PULSE 69–96; RESP 10–26; TEMP 97.9–99.5; O2SAT 85–100
[2023-12-13 03:54] LABS: Anion Gap 5 (5-15); Carbon Dioxide 33 mmol/L (20-30); Chloride 101 mmol/L (98-107); Potassium 3.1 mmol/L (3.5-5.1); Sodium 139 mmol/L (136-145)
[2023-12-13 03:55] LABS: Calcium 8.3 mg/dL (8.5-10.1)
[2023-12-13 03:59] LABS: Hematocrit 30.3 % (36.0-46.0); Hemoglobin 9.9 g/dL (12.2-16.2); Mean Corpuscular Hemoglobin 26.7 pg (28.0-32.0); Mean Corpuscular Hgb Conc. 32.6 g/dL (32.0-36.0); Mean Corpuscular Volume 81.9 fL (80.0-100.0); Red Cell Distribution Width 15.3 % (11.8-14.3); White Blood Cell 16.1 10^3/uL (4.4-10.8)
[2023-12-13 04:00] LABS: BUN/Creatinine Ratio 42.2 (10.0-20.0); Blood Urea Nitrogen 19 mg/dL (9-23); Glucose 125 mg/dL (74-106)
[2023-12-13 04:04] LABS: Basophils % (manual) 0 (0.0-2.0); Blast Cells 0; Metamyelocytes % 0; Myelocytes % 0; Promyelocytes % 0; Reactive Lymphocytes 0
[2023-12-13] MEDS: LEVOTHYROXINE SODIUM 50 MCG TAB GT SCH (05:32)
[2023-12-13 05:33] LABS: Band Neutrophils % (manual) 2; Eosinophils % (manual) 2 (0-7); Lymphocytes % (manual) 13 (10.0-50.0); Monocytes % (manual) 6 (0-12); Platelet Estimate Adequate
[2023-12-13 05:34] LABS: Large Platelets FEW
[2023-12-13] MEDS: POTASSIUM CHL 20MEQ/100ML 100 ML IV ONE ×3 (07:03→17:41)
[2023-12-13 07:50] LABS: Magnesium 1.6 mg/dL (1.6-2.6)
[2023-12-13 07:52] LABS: Phosphorus 2.5 mg/dL (2.4-5.1)
[2023-12-13 08:42] LABS: Base Excess 8.4 mmol/L (-2.0-2.0)
[2023-12-13] MEDS ORDERED: acetaZOLAMIDE SODIUM 500 MG VL IV SCH (10:00)
[2023-12-13 13:17] LABS: Base Excess 6.2 mmol/L (-2.0-2.0)
[2023-12-13] MEDS: VANCOMYCIN 500 MG in D5W 5% 100 ML IV ONE (14:21)
[2023-12-13] MEDS: MICAFUNGIN SODIUM 100 MG in SODIUM CHL 0.9% 100 ML IV SCH (15:29)
[2023-12-13] MEDS: MAGNESIUM SULFATE 1GM/100ML 100 ML IV ONE (15:52)
[2023-12-13] MEDS: MAGNESIUM SULFATE 1GM/100ML 100 ML IV SCH (17:00)
[2023-12-13 18:38] LABS: Urine Bacteria FEW /hpf (None Seen); Urine Blood TRACE /uL (Negative); Urine Clarity Turbid (Clear); Urine Color Colorless (Yellow); Urine Hyaline Cast FEW /lpf (0 - 2); Urine Mucus FEW (None Seen); Urine Protein, UAD TRACE (Negative); Urine Specific Gravity 1.013 (1.001-1.035); Urine Urobilinogen Normal (Negative); Urine WBC 15 /hpf (0 - 5); Urine pH 5.5 (5.0-9.0)
[2023-12-14] VITALS (102 sets, daily range): BP systolic 81–126; BP diastolic 46–71; PULSE 61–90; RESP 13–30; TEMP 97.9–99.7; O2SAT 94–100
[2023-12-14] MEDS: Jevity 1.2 Cal/Fiber 1 Liter GT SCH (00:25)
[2023-12-14 04:00] LABS: Basophils # (auto) 0.1 10 ^3/uL (0-0.2); Eosinophils # (auto) 0.6 10 ^3/uL (0-0.8); Mean Corpuscular Volume 82.9 fL (80.0-100.0)
[2023-12-14 04:09] LABS: Basophils % (auto) 0.8 % (0.0-2.0); Hemoglobin 9.9 g/dL (12.2-16.2); Lymphocytes # (auto) 2.9 10 ^3/uL (0.4-5.4); Lymphocytes % (auto) 15.5 % (10.0-50.0); Mean Corpuscular Hemoglobin 26.6 pg (28.0-32.0); Monocytes % (auto) 5.4 % (0.0-12.0); Neutrophils # (auto) 14.2 10 ^3/uL (1.6-8.6); Neutrophils % (auto) 75.3 % (37.0-80.0); Nucleated Red Blood Cells % 0.1 %; Red Blood Cells 3.74 10^6/uL (4.0-5.20); Red Cell Distribution Width 15.5 % (11.8-14.3); White Blood Cell 18.8 10^3/uL (4.4-10.8)
[2023-12-14 04:24] LABS: Albumin 2.8 g/dL (3.2-4.8); Alkaline Phosphatase 63 U/L (46-116); Anion Gap 6 (5-15); Aspartate Aminotransferase 23 U/L (13-40); BUN/Creatinine Ratio 32.5 (10.0-20.0); Bilirubin, Total 0.4 mg/dL (0.2-1.0); Blood Urea Nitrogen 13 mg/dL (9-23); Calcium 8.3 mg/dL (8.7-10.4); Carbon Dioxide 30 mmol/L (20-30); Chloride 101 mmol/L (98-107); Glucose 120 mg/dL (74-106); Magnesium 2.1 mg/dL (1.6-2.6); Phosphorus 2.7 mg/dL (2.4-5.1); Potassium 3.2 mmol/L (3.5-5.1); Sodium 137 mmol/L (136-145); Total Protein 5.9 g/dL (5.7-8.2)
[2023-12-14 04:30] LABS: Alanine Aminotransferase < 9 U/L (7-40)
[2023-12-14] MEDS: POTASSIUM CHL 20MEQ/100ML 100 ML IV ONE ×2 (06:18→08:34)
[2023-12-14] MEDS ORDERED: AMIKACIN 0 ML IV SCH (08:00)
[2023-12-14 09:26] LABS: Base Excess 6.4 mmol/L (-2.0-2.0)
[2023-12-14] MEDS: VANCOMYCIN 500 MG in D5W 5% 100 ML IV SCH (12:27)
[2023-12-14] MEDS: POTASSIUM CHL 20MEQ/100ML 100 ML IV SCH (13:36)
[2023-12-14] MEDS: ALBUMIN 25% 50 ML IV SCH (13:39)
[2023-12-15] VITALS (107 sets, daily range): BP systolic 86–144; BP diastolic 44–76; PULSE 61–91; RESP 12–35; TEMP 83.3–99.1; O2SAT 95–100
[2023-12-15 03:29] LABS: Basophils # (auto) 0.1 10 ^3/uL (0-0.2); Basophils % (auto) 0.4 % (0.0-2.0); Eosinophils # (auto) 0.5 10 ^3/uL (0-0.8); Hemoglobin 11.2 g/dL (12.2-16.2); Lymphocytes # (auto) 2.2 10 ^3/uL (0.4-5.4); Lymphocytes % (auto) 14.1 % (10.0-50.0); Mean Corpuscular Hemoglobin 26.9 pg (28.0-32.0); Mean Corpuscular Hgb Conc. 32.1 g/dL (32.0-36.0); Mean Corpuscular Volume 83.8 fL (80.0-100.0); Monocytes # (auto) 1.1 10 ^3/uL (0-1.3); Monocytes % (auto) 6.8 % (0.0-12.0); Neutrophils # (auto) 11.8 10 ^3/uL (1.6-8.6); Neutrophils % (auto) 75.7 % (37.0-80.0); Red Blood Cells 4.18 10^6/uL (4.0-5.20); Red Cell Distribution Width 15.5 % (11.8-14.3); White Blood Cell 15.6 10^3/uL (4.4-10.8)
[2023-12-15 03:48] LABS: Albumin 3.6 g/dL (3.2-4.8); Alkaline Phosphatase 66 U/L (46-116); Anion Gap 3 (5-15); Aspartate Aminotransferase 16 U/L (13-40); BUN/Creatinine Ratio 21.1 (10.0-20.0); Blood Urea Nitrogen 12 mg/dL (9-23); Calcium 8.9 mg/dL (8.7-10.4); Carbon Dioxide 31 mmol/L (20-30); Chloride 104 mmol/L (98-107); Glucose 146 mg/dL (74-106); Magnesium 1.9 mg/dL (1.6-2.6); Phosphorus 2.4 mg/dL (2.4-5.1); Potassium 4.9 mmol/L (3.5-5.1); Sodium 138 mmol/L (136-145)
[2023-12-15 03:49] LABS: Bilirubin, Total 0.4 mg/dL (0.2-1.0); Total Protein 6.8 g/dL (5.7-8.2)
[2023-12-15 03:50] LABS: Alanine Aminotransferase < 9 U/L (7-40)
[2023-12-15 07:26] LABS: Base Excess 3.3 mmol/L (-2.0-2.0)
[2023-12-15] MEDS: LACTULOSE 20Gm/30ML SOLN PO ONE (10:53)
[2023-12-16] VITALS (105 sets, daily range): BP systolic 91–141; BP diastolic 51–81; PULSE 71–98; RESP 14–36; TEMP 98.8–99.9; O2SAT 92–100
[2023-12-16 04:01] LABS: Basophils # (auto) 0.1 10 ^3/uL (0-0.2); Basophils % (auto) 0.3 % (0.0-2.0); Eosinophils # (auto) 0.4 10 ^3/uL (0-0.8); Eosinophils % (auto) 2.2 % (0.0-7.0); Hemoglobin 10.1 g/dL (12.2-16.2); Lymphocytes # (auto) 2.1 10 ^3/uL (0.4-5.4); Lymphocytes % (auto) 10.8 % (10.0-50.0); Mean Corpuscular Hemoglobin 27.3 pg (28.0-32.0); Mean Corpuscular Hgb Conc. 31.6 g/dL (32.0-36.0); Mean Corpuscular Volume 86.4 fL (80.0-100.0); Monocytes # (auto) 0.9 10 ^3/uL (0-1.3); Monocytes % (auto) 4.7 % (0.0-12.0); Neutrophils # (auto) 16.2 10 ^3/uL (1.6-8.6); Nucleated Red Blood Cells % 0.1 %; Red Cell Distribution Width 16.2 % (11.8-14.3); White Blood Cell 19.8 10^3/uL (4.4-10.8)
[2023-12-16 04:22] LABS: Albumin 3.2 g/dL (3.2-4.8); Alkaline Phosphatase 63 U/L (46-116); Anion Gap 5 (5-15); Aspartate Aminotransferase 17 U/L (13-40); BUN/Creatinine Ratio 19.1 (10.0-20.0); Bilirubin, Total 0.5 mg/dL (0.2-1.0); Blood Urea Nitrogen 9 mg/dL (9-23); Calcium 8.8 mg/dL (8.7-10.4); Carbon Dioxide 28 mmol/L (20-30); Chloride 104 mmol/L (98-107); Glucose 88 mg/dL (74-106); Magnesium 1.8 mg/dL (1.6-2.6); Phosphorus 2.6 mg/dL (2.4-5.1); Sodium 137 mmol/L (136-145); Total Protein 6.2 g/dL (5.7-8.2)
[2023-12-16 04:23] LABS: Alanine Aminotransferase < 9 U/L (7-40)
[2023-12-16 08:04] LABS: Base Excess 6.8 mmol/L (-2.0-2.0)
[2023-12-16] MEDS: CEFTOLOZANE TAZOB IV SCH (09:00)
[2023-12-16] MEDS: SODIUM CHL 0.9% IV SCH (09:00)
[2023-12-16] MEDS: [UNRECOGNIZED DRUG - OTHER] IV SCH (09:00)
[2023-12-16] MEDS: FLEET ENEMA(ADULT) 135 ML PR ONE (11:27)
[2023-12-16] MEDS: LACTULOSE 20Gm/30ML SOLN PO ONE (11:27)
[2023-12-16] MEDS ORDERED: DEXTROSE (50%) 50ML SYRG IV PRN (14:15)
[2023-12-16] MEDS: ACCU-CHEK COMFORT CURVE STRIP VI SCH (17:00)
[2023-12-16] MEDS: InsuLIN REG 1unit/0.01ml Soln (100units/ml) SC SCH (17:00)
[2023-12-17] VITALS (104 sets, daily range): BP systolic 76–133; BP diastolic 40–75; PULSE 67–104; RESP 9–32; TEMP 97.3–99.9; O2SAT 97–100
[2023-12-17] MEDS: fentaNYL Drip 2500mCg/250mlNS 250 ML IV SCH (01:15)
[2023-12-17 03:40] LABS: Basophils # (auto) 0.1 10 ^3/uL (0-0.2); Basophils % (auto) 0.5 % (0.0-2.0); Eosinophils # (auto) 0.3 10 ^3/uL (0-0.8); Eosinophils % (auto) 2.1 % (0.0-7.0); Hematocrit 29.2 % (36.0-46.0); Hemoglobin 9.5 g/dL (12.2-16.2); Lymphocytes # (auto) 1.6 10 ^3/uL (0.4-5.4); Lymphocytes % (auto) 12.9 % (10.0-50.0); Mean Corpuscular Hemoglobin 27.5 pg (28.0-32.0); Mean Corpuscular Hgb Conc. 32.6 g/dL (32.0-36.0); Mean Corpuscular Volume 84.3 fL (80.0-100.0); Monocytes # (auto) 0.6 10 ^3/uL (0-1.3); Monocytes % (auto) 4.8 % (0.0-12.0); Neutrophils # (auto) 9.9 10 ^3/uL (1.6-8.6); Neutrophils % (auto) 79.7 % (37.0-80.0); Nucleated Red Blood Cells % 0.1 %; Red Blood Cells 3.47 10^6/uL (4.0-5.20); White Blood Cell 12.4 10^3/uL (4.4-10.8)
[2023-12-17 04:05] LABS: Alanine Aminotransferase 12 U/L (7-40); Albumin 3.1 g/dL (3.2-4.8); Alkaline Phosphatase 72 U/L (46-116); Anion Gap 4 (5-15); Aspartate Aminotransferase 19 U/L (13-40); BUN/Creatinine Ratio 23.4 (10.0-20.0); Bilirubin, Total 0.5 mg/dL (0.2-1.0); Blood Urea Nitrogen 11 mg/dL (9-23); Calcium 8.7 mg/dL (8.5-10.1); Carbon Dioxide 28 mmol/L (20-30); Chloride 103 mmol/L (98-107); Glucose 96 mg/dL (74-106); Magnesium 1.7 mg/dL (1.6-2.6); Phosphorus 2.4 mg/dL (2.4-5.1); Potassium 3.9 mmol/L (3.5-5.1); Sodium 135 mmol/L (136-145)
[2023-12-17 07:03] LABS: Base Excess 3.4 mmol/L (-2.0-2.0)
[2023-12-17] MEDS: MAGNESIUM SULFATE 1GM/100ML 100 ML IV ONE (08:05)
[2023-12-18] VITALS (110 sets, daily range): BP systolic 78–137; BP diastolic 42–83; PULSE 80–111; RESP 13–34; TEMP 98.2–100.2; O2SAT 90–100
[2023-12-18 04:14] LABS: Basophils # (auto) 0.1 10 ^3/uL (0-0.2); Basophils % (auto) 0.6 % (0.0-2.0); Eosinophils # (auto) 0.1 10 ^3/uL (0-0.8); Eosinophils % (auto) 0.9 % (0.0-7.0); Hematocrit 29.1 % (36.0-46.0); Hemoglobin 9.6 g/dL (12.2-16.2); Lymphocytes # (auto) 0.4 10 ^3/uL (0.4-5.4); Lymphocytes % (auto) 4.3 % (10.0-50.0); Mean Corpuscular Hemoglobin 27.2 pg (28.0-32.0); Mean Corpuscular Hgb Conc. 32.8 g/dL (32.0-36.0); Monocytes # (auto) 0.7 10 ^3/uL (0-1.3); Monocytes % (auto) 7.1 % (0.0-12.0); Neutrophils # (auto) 8.5 10 ^3/uL (1.6-8.6); Neutrophils % (auto) 87.1 % (37.0-80.0); Nucleated Red Blood Cells % 0.1 %; Red Blood Cells 3.51 10^6/uL (4.0-5.20); Red Cell Distribution Width 15.8 % (11.8-14.3); White Blood Cell 9.8 10^3/uL (4.4-10.8)
[2023-12-18 04:31] LABS: Calcium 8.8 mg/dL (8.5-10.1); Chloride 103 mmol/L (98-107); Potassium 3.4 mmol/L (3.5-5.1); Sodium 136 mmol/L (136-145)
[2023-12-18 04:32] LABS: Anion Gap 7 (5-15); Carbon Dioxide 26 mmol/L (20-30)
[2023-12-18 04:37] LABS: BUN/Creatinine Ratio 25.6 (10.0-20.0); Blood Urea Nitrogen 11 mg/dL (9-23); Glucose 78 mg/dL (74-106)
[2023-12-18 04:38] LABS: Magnesium 1.8 mg/dL (1.6-2.6)
[2023-12-18 04:39] LABS: Phosphorus 2.3 mg/dL (2.4-5.1)
[2023-12-18] MEDS: POTASSIUM CHL 20MEQ/100ML 100 ML IV ONE (06:28)
[2023-12-18] MEDS ORDERED: LIDOCAINE 2% JELLY 11ml (GLYDO) ONE (06:46)
[2023-12-18] MEDS ORDERED: LIDOCAINE 2%HCL (LOCAL ANESTH.) INJ 20ML MDV ONE (06:46)
[2023-12-18] MEDS ORDERED: SODIUM CHLORIDE LOCK 10 ML ONE (06:46)
[2023-12-18] MEDS ORDERED: FLUMAZENIL 0.1 MG/ML INJ 10ML MDV IV ONE (06:46)
[2023-12-18] MEDS ORDERED: EPINEPHrine HCL 1 MG/1 ML AMP ONE (06:46)
[2023-12-18] MEDS ORDERED: NALOXONE HCL 0.4 MG/ML VIAL ONE (06:46)
[2023-12-18 07:30] LABS: Base Excess 2.4 mmol/L (-2.0-2.0)
[2023-12-18] MEDS: POTASSIUM PHOSPHATE 22 MEQ in SODIUM CHL 0.9% 100 ML IV ONE ×2 (08:00→18:10)
[2023-12-18] MEDS: fentaNYL CITRATE 100 MCG/2 ML VL ONE (11:43)
[2023-12-18] MEDS: MIDAZOLAM HCL 5 MG/ML-1ML VIAL ONE (11:43)
[2023-12-18 15:29] LABS: INR 1.09 (0.9-1.15); Prothrombin Time 11.5 sec (9.3-11.8)
[2023-12-18] MEDS: NOREPINEPHRINE 8 MG/250ML KIT 250 ML IV SCH (19:30)
[2023-12-18] MEDS: MAGNESIUM SULFATE 1GM/100ML 100 ML IV ONE ×2 (20:05→23:05)
[2023-12-18] MEDS: LIDOCAINE 1% (LOCAL ANESTH.) PF 5ml SDV ID ONE (20:06)
[2023-12-18] MEDS: SODIUM CHLOR 0.9% PF (SALINE LOCK) 10ML VIAL/SYR IV SCH (22:14)
[2023-12-19] VITALS (108 sets, daily range): BP systolic 67–144; BP diastolic 33–89; PULSE 91–116; RESP 10–35; TEMP 95.9–100.2; O2SAT 89–100
[2023-12-19 03:23] LABS: Basophils # (auto) 0.1 10 ^3/uL (0-0.2); Basophils % (auto) 1.1 % (0.0-2.0); Eosinophils # (auto) 0.1 10 ^3/uL (0-0.8); Eosinophils % (auto) 0.9 % (0.0-7.0); Hemoglobin 9.3 g/dL (12.2-16.2); Lymphocytes # (auto) 0.5 10 ^3/uL (0.4-5.4); Lymphocytes % (auto) 7.5 % (10.0-50.0); Mean Corpuscular Hemoglobin 27.9 pg (28.0-32.0); Mean Corpuscular Hgb Conc. 33.3 g/dL (32.0-36.0); Mean Corpuscular Volume 83.8 fL (80.0-100.0); Monocytes # (auto) 0.8 10 ^3/uL (0-1.3); Monocytes % (auto) 12.5 % (0.0-12.0); Neutrophils # (auto) 4.8 10 ^3/uL (1.6-8.6); Nucleated Red Blood Cells % 0.1 %; Red Blood Cells 3.34 10^6/uL (4.0-5.20); Red Cell Distribution Width 15.8 % (11.8-14.3); White Blood Cell 6.2 10^3/uL (4.4-10.8)
[2023-12-19 03:41] LABS: Alanine Aminotransferase 12 U/L (7-40); Albumin 3.2 g/dL (3.2-4.8); Alkaline Phosphatase 68 U/L (46-116); Anion Gap 8 (5-15); Aspartate Aminotransferase 27 U/L (13-40); BUN/Creatinine Ratio 23.1 (10.0-20.0); Bilirubin, Total 0.4 mg/dL (0.2-1.0); Blood Urea Nitrogen 9 mg/dL (9-23); Calcium 8.7 mg/dL (8.7-10.4); Carbon Dioxide 23 mmol/L (20-30); Chloride 106 mmol/L (98-107); Glucose 94 mg/dL (74-106); Magnesium 2.2 mg/dL (1.6-2.6); Phosphorus 2.9 mg/dL (2.4-5.1); Potassium 3.5 mmol/L (3.5-5.1); Sodium 137 mmol/L (136-145)
[2023-12-19 03:42] LABS: Total Protein 6.5 g/dL (5.7-8.2)
[2023-12-19] MEDS ORDERED: KETOROLAC TROMETH 30 MG/ML 1ML VIAL IV PRN ×2 (12:15→12:30)
[2023-12-19] MEDS: KETOROLAC TROMETH 30 MG/ML 1ML VIAL IV PRN (15:51)
[2023-12-20] VITALS (104 sets, daily range): BP systolic 76–135; BP diastolic 28–81; PULSE 89–111; RESP 8–35; TEMP 75–101.7; O2SAT 89–100
[2023-12-20 04:05] LABS: Basophils # (auto) 0 10 ^3/uL (0-0.2); Basophils % (auto) 0.5 % (0.0-2.0); Eosinophils # (auto) 0 10 ^3/uL (0-0.8); Hemoglobin 8.3 g/dL (12.2-16.2); Lymphocytes # (auto) 0.3 10 ^3/uL (0.4-5.4); Lymphocytes % (auto) 3.9 % (10.0-50.0); Monocytes # (auto) 0.4 10 ^3/uL (0-1.3)
[2023-12-20 04:08] LABS: Eosinophils % (auto) 0.5 % (0.0-7.0); Hematocrit 25.3 % (36.0-46.0); Mean Corpuscular Hemoglobin 27.5 pg (28.0-32.0); Mean Corpuscular Hgb Conc. 32.8 g/dL (32.0-36.0); Mean Corpuscular Volume 83.7 fL (80.0-100.0); Monocytes % (auto) 6.7 % (0.0-12.0); Neutrophils # (auto) 5.8 10 ^3/uL (1.6-8.6); Neutrophils % (auto) 88.4 % (37.0-80.0); Red Blood Cells 3.02 10^6/uL (4.0-5.20); Red Cell Distribution Width 15.7 % (11.8-14.3); White Blood Cell 6.6 10^3/uL (4.4-10.8)
[2023-12-20 04:11] LABS: Chloride 107 mmol/L (98-107); Sodium 139 mmol/L (136-145)
[2023-12-20 04:12] LABS: Anion Gap 12 (5-15); Carbon Dioxide 20 mmol/L (20-30)
[2023-12-20 04:13] LABS: Calcium 8.3 mg/dL (8.5-10.1)
[2023-12-20 04:17] LABS: BUN/Creatinine Ratio 25.6 (10.0-20.0); Blood Urea Nitrogen 10 mg/dL (9-23); Glucose 63 mg/dL (74-106)
[2023-12-20] MEDS: POTASSIUM PHOSPHATE 22 MEQ in SODIUM CHL 0.9% 100 ML IV ONE (05:54)
[2023-12-20 09:48] LABS: Magnesium 1.7 mg/dL (1.6-2.6)
[2023-12-20 09:50] LABS: Phosphorus 2.3 mg/dL (2.4-5.1)
[2023-12-20] MEDS: POTASSIUM CHL 20MEQ/100ML 100 ML IV SCH (10:31)
[2023-12-20] MEDS: LEVALBUTEROL HCL 1.25 MG/3 ML NEB NEB SCH (10:57)
[2023-12-20] MEDS: SODIUM CHLORIDE 0.9% 1,000 ML IV SCH (11:45)
[2023-12-20 12:59] LABS: Ferritin > 1650.0 ng/mL (10-291)
[2023-12-20] MEDS: IBUPROFEN 400 MG TAB PO PRN (13:06)
[2023-12-21] VITALS (106 sets, daily range): BP systolic 92–131; BP diastolic 46–80; PULSE 85–108; RESP 10–36; TEMP 63.5–100.6; O2SAT 65–100
[2023-12-21 04:08] LABS: Basophils # (auto) 0 10 ^3/uL (0-0.2); Basophils % (auto) 0.6 % (0.0-2.0); Eosinophils # (auto) 0 10 ^3/uL (0-0.8); Eosinophils % (auto) 0.5 % (0.0-7.0); Hematocrit 26.4 % (36.0-46.0); Hemoglobin 8.7 g/dL (12.2-16.2); Lymphocytes # (auto) 0.3 10 ^3/uL (0.4-5.4); Lymphocytes % (auto) 3.3 % (10.0-50.0); Mean Corpuscular Hemoglobin 27.6 pg (28.0-32.0); Mean Corpuscular Volume 83.4 fL (80.0-100.0); Monocytes # (auto) 0.4 10 ^3/uL (0-1.3); Monocytes % (auto) 4.7 % (0.0-12.0); Neutrophils # (auto) 7.1 10 ^3/uL (1.6-8.6); Neutrophils % (auto) 90.9 % (37.0-80.0); Red Blood Cells 3.16 10^6/uL (4.0-5.20); Red Cell Distribution Width 16.1 % (11.8-14.3); White Blood Cell 7.8 10^3/uL (4.4-10.8)
[2023-12-21 04:23] LABS: Alanine Aminotransferase 11 U/L (7-40); Albumin 2.5 g/dL (3.2-4.8); Alkaline Phosphatase 53 U/L (46-116); Anion Gap 12 (5-15); Aspartate Aminotransferase 29 U/L (13-40); Bilirubin, Total 0.3 mg/dL (0.2-1.0); Blood Urea Nitrogen 8 mg/dL (9-23); Carbon Dioxide 18 mmol/L (20-30); Chloride 113 mmol/L (98-107); Glucose 76 mg/dL (74-106); Magnesium 1.2 mg/dL (1.6-2.6); Phosphorus 1.9 mg/dL (2.4-5.1); Potassium 2.8 mmol/L (3.5-5.1); Sodium 143 mmol/L (136-145)
[2023-12-21] MEDS: MAGNESIUM SULFATE 1GM/100ML 100 ML IV SCH (06:19)
[2023-12-21] MEDS: POTASSIUM CHL 20MEQ/100ML 100 ML IV ONE (06:36)
[2023-12-21] MEDS: CALCIUM GLUC 1,000mg/50ml-NS 50 ML IV ONE ×2 (06:36→09:24)
[2023-12-21] MEDS ORDERED: POTASSIUM CHL 20MEQ/100ML 100 ML IV SCH (07:00)
[2023-12-21] MEDS ORDERED: MAGNESIUM SULFATE 1GM/100ML 100 ML IV ONE (07:00)
[2023-12-21] MEDS: POTASSIUM PHOSPHATE 22 MEQ in SODIUM CHL 0.9% 100 ML IV ONE (07:00)
[2023-12-21] MEDS ORDERED: CLINIMIX PER PHARMACY 0 ML IV SCH (10:45)
[2023-12-21] MEDS: VANCOMYCIN 500 MG in D5W 5% 100 ML IV SCH (17:20)
[2023-12-21 17:36] LABS: Chloride 110 mmol/L (98-107); Potassium 3.4 mmol/L (3.5-5.1); Sodium 141 mmol/L (136-145)
[2023-12-21 17:37] LABS: Anion Gap 11 (5-15); Calcium 8.5 mg/dL (8.5-10.1); Carbon Dioxide 20 mmol/L (20-30)
[2023-12-21 17:42] LABS: BUN/Creatinine Ratio 26.5 (10.0-20.0); Blood Urea Nitrogen 9 mg/dL (9-23); Glucose 85 mg/dL (74-106)
[2023-12-21 17:43] LABS: Magnesium 1.6 mg/dL (1.6-2.6)
[2023-12-21 17:44] LABS: Phosphorus 3.3 mg/dL (2.4-5.1)
[2023-12-21] MEDS: AMINO ACID INFUSION IN D10W 1,000 ML IV SCH (20:52)
[2023-12-22] VITALS (99 sets, daily range): BP systolic 73–133; BP diastolic 45–94; PULSE 80–130; RESP 16–33; TEMP 63.1–100.4; O2SAT 85–100
[2023-12-22 04:18] LABS: Basophils # (auto) 0 10 ^3/uL (0-0.2); Basophils % (auto) 0.3 % (0.0-2.0); Eosinophils # (auto) 0 10 ^3/uL (0-0.8); Eosinophils % (auto) 0.5 % (0.0-7.0); Hematocrit 27.9 % (36.0-46.0); Lymphocytes # (auto) 0.4 10 ^3/uL (0.4-5.4); Lymphocytes % (auto) 4.6 % (10.0-50.0); Mean Corpuscular Hemoglobin 27.3 pg (28.0-32.0); Mean Corpuscular Hgb Conc. 32.4 g/dL (32.0-36.0); Mean Corpuscular Volume 84.3 fL (80.0-100.0); Monocytes # (auto) 0.4 10 ^3/uL (0-1.3); Monocytes % (auto) 4.7 % (0.0-12.0); Neutrophils # (auto) 7.9 10 ^3/uL (1.6-8.6); Neutrophils % (auto) 89.9 % (37.0-80.0); Nucleated Red Blood Cells % 0.2 %; Red Blood Cells 3.31 10^6/uL (4.0-5.20); Red Cell Distribution Width 16.5 % (11.8-14.3); White Blood Cell 8.8 10^3/uL (4.4-10.8)
[2023-12-22 04:19] LABS: Anion Gap 9 (5-15); Carbon Dioxide 21 mmol/L (20-30); Chloride 111 mmol/L (98-107); Sodium 141 mmol/L (136-145)
[2023-12-22 04:20] LABS: Calcium 8.5 mg/dL (8.7-10.4)
[2023-12-22 04:24] LABS: GFR African American 242 mL/min; GFR Non-African American 200 mL/min
[2023-12-22 04:25] LABS: BUN/Creatinine Ratio 20.6 (10.0-20.0); Blood Urea Nitrogen 7 mg/dL (9-23); Glucose 146 mg/dL (74-106); Magnesium 1.6 mg/dL (1.6-2.6)
[2023-12-22 04:26] LABS: Albumin 2.8 g/dL (3.2-4.8)
[2023-12-22 04:27] LABS: Phosphorus 2.3 mg/dL (2.4-5.1)
[2023-12-22] MEDS: POTASSIUM CHL 20MEQ/100ML 100 ML IV ONE (06:22)
[2023-12-22] MEDS: POTASSIUM CHL 20MEQ/100ML 100 ML IV SCH (06:30)
[2023-12-22] MEDS: MAGNESIUM SULFATE 1GM/100ML 100 ML IV ONE (07:21)
[2023-12-22] MEDS: POTASSIUM PHOSPHATE 22 MEQ in SODIUM CHL 0.9% 100 ML IV ONE (08:30)
[2023-12-22] MEDS ORDERED: IBUPROFEN 100MG/5ML ORAL SUSP 100 MG/5 ML UD PO PRN (20:15)
[2023-12-22] MEDS ORDERED: IBUPROFEN 100MG/5ML ORAL SUSP 100 MG/5 ML UD GT PRN (20:15)
[2023-12-23] VITALS (40 sets, daily range): BP systolic 77–118; BP diastolic 38–68; PULSE 68–122; RESP 15–37; TEMP 96.7–99; O2SAT 92–100
[2023-12-23 07:21] LABS: Basophils # (auto) 0 10 ^3/uL (0-0.2); Basophils % (auto) 0.3 % (0.0-2.0); Eosinophils # (auto) 0.1 10 ^3/uL (0-0.8); Eosinophils % (auto) 1.5 % (0.0-7.0); Hematocrit 27.3 % (36.0-46.0); Lymphocytes # (auto) 0.6 10 ^3/uL (0.4-5.4); Lymphocytes % (auto) 6.6 % (10.0-50.0); Mean Corpuscular Hemoglobin 27.6 pg (28.0-32.0); Mean Corpuscular Volume 83.5 fL (80.0-100.0); Monocytes # (auto) 0.5 10 ^3/uL (0-1.3); Monocytes % (auto) 5.8 % (0.0-12.0); Neutrophils # (auto) 7.7 10 ^3/uL (1.6-8.6); Neutrophils % (auto) 85.8 % (37.0-80.0); Red Blood Cells 3.27 10^6/uL (4.0-5.20); Red Cell Distribution Width 16.6 % (11.8-14.3)
[2023-12-23 08:57] LABS: Alanine Aminotransferase 14 U/L (7-40); Albumin 2.7 g/dL (3.2-4.8); Alkaline Phosphatase 65 U/L (46-116); Anion Gap 8 (5-15); Aspartate Aminotransferase 34 U/L (13-40); BUN/Creatinine Ratio 33.3 (10.0-20.0); Bilirubin, Total 0.4 mg/dL (0.2-1.0); Blood Urea Nitrogen 9 mg/dL (9-23); Calcium 8.1 mg/dL (8.5-10.1); Carbon Dioxide 21 mmol/L (20-30); Chloride 110 mmol/L (98-107); Glucose 156 mg/dL (74-106); Magnesium 1.3 mg/dL (1.6-2.6); Potassium 2.6 mmol/L (3.5-5.1); Sodium 139 mmol/L (136-145); Total Protein 5.4 g/dL (5.7-8.2)
[2023-12-23] MEDS: POTASSIUM PHOSPHATE 22 MEQ in SODIUM CHL 0.9% 100 ML IV ONE ×2 (10:40→17:15)
[2023-12-23] MEDS: MAGNESIUM SULFATE 1GM/100ML 100 ML IV ONE ×2 (10:41→17:15)
[2023-12-23] MEDS: POTASSIUM CHL 20MEQ/100ML 100 ML IV SCH ×2 (10:42→17:15)
[2023-12-23] MEDS ORDERED: MAGNESIUM SULFATE 1GM/100ML 100 ML IV ONE (15:15)
[2023-12-23] MEDS ORDERED: SODIUM PHOSPHATES 20 MEQ in SODIUM CHL 0.9% 100 ML IV ONE (15:15)
[2023-12-23] MEDS ORDERED: MIDODRINE HCL 10 MG TAB PO SCH (18:00)
[2023-12-23] MEDS: MIDODRINE HCL 10 MG TAB PO SCH (18:00)
[2023-12-23] MEDS: PANTOPRAZOLE 40 MG/10 ML VIAL INJ IV SCH (21:31)
[2023-12-23] MEDS: levETIRAcetam 500 mg/100ml 100 ML IV SCH (21:35)
[2023-12-24] VITALS (108 sets, daily range): BP systolic 78–135; BP diastolic 46–115; PULSE 64–171; RESP 12–38; TEMP 97.8–100.1; O2SAT 85–100
[2023-12-24 09:21] LABS: Basophils # (auto) 0 10 ^3/uL (0-0.2); Eosinophils # (auto) 0.3 10 ^3/uL (0-0.8); Hemoglobin 7.8 g/dL (12.2-16.2); Lymphocytes # (auto) 0.7 10 ^3/uL (0.4-5.4); Mean Corpuscular Hemoglobin 27.3 pg (28.0-32.0); Monocytes # (auto) 0.6 10 ^3/uL (0-1.3); Red Blood Cells 2.84 10^6/uL (4.0-5.20)
[2023-12-24 09:23] LABS: Basophils % (auto) 0.3 % (0.0-2.0); Eosinophils % (auto) 3.5 % (0.0-7.0); Hematocrit 23.4 % (36.0-46.0); Lymphocytes % (auto) 8.7 % (10.0-50.0); Mean Corpuscular Hgb Conc. 33.1 g/dL (32.0-36.0); Mean Corpuscular Volume 82.3 fL (80.0-100.0); Monocytes % (auto) 8.2 % (0.0-12.0); Neutrophils # (auto) 5.9 10 ^3/uL (1.6-8.6); Neutrophils % (auto) 79.3 % (37.0-80.0); Nucleated Red Blood Cells % 0.1 %; Red Cell Distribution Width 16.7 % (11.8-14.3); White Blood Cell 7.5 10^3/uL (4.4-10.8)
[2023-12-24 09:29] LABS: Alanine Aminotransferase 14 U/L (7-40); Albumin 2.4 g/dL (3.2-4.8); Alkaline Phosphatase 58 U/L (46-116); Anion Gap 7 (5-15); Aspartate Aminotransferase 31 U/L (13-40); BUN/Creatinine Ratio 30.3 (10.0-20.0); Bilirubin, Total 0.3 mg/dL (0.2-1.0); Blood Urea Nitrogen 10 mg/dL (9-23); Calcium 7.9 mg/dL (8.7-10.4); Carbon Dioxide 20 mmol/L (20-30); Chloride 112 mmol/L (98-107); GFR African American 251 mL/min; GFR Non-African American 207 mL/min; Glucose 150 mg/dL (74-106); Magnesium 1.3 mg/dL (1.6-2.6); Phosphorus 1.9 mg/dL (2.4-5.1); Sodium 139 mmol/L (136-145)
[2023-12-24 09:31] LABS: Potassium 2.3 mmol/L (3.5-5.1)
[2023-12-24] MEDS: ENOXAPARIN SOD 40 MG/0.4 ML SYRINGE SC SCH (10:00)
[2023-12-24] MEDS: POTASSIUM CHL 20MEQ/100ML 100 ML IV SCH (10:15)
[2023-12-24] MEDS: LACOSAMIDE 50 MG TAB PO SCH (10:25)
[2023-12-24] MEDS: NOREPINEPHRINE 8 MG/250ML KIT 250 ML IV SCH (13:00)
[2023-12-24] MEDS: MAGNESIUM SULFATE 1GM/100ML 100 ML IV SCH (17:13)
[2023-12-24] MEDS: MIDODRINE HCL 10 MG TAB PO SCH (18:00)
[2023-12-24] MEDS: POTASSIUM PHOSPHATE 22 MEQ in SODIUM CHL 0.9% 100 ML IV ONE (19:43)
[2023-12-24] MEDS: FUROSEMIDE 20 MG/2 ML VIAL IV ONE (21:27)
[2023-12-25] VITALS (99 sets, daily range): BP systolic 86–134; BP diastolic 47–77; PULSE 70–101; RESP 11–37; TEMP 97.5–98.5; O2SAT 75–100
[2023-12-25] MEDS: NOREPINEPHRINE 8 MG/250ML KIT 250 ML IV SCH (04:45)
[2023-12-25 05:36] LABS: Basophils # (auto) 0 10 ^3/uL (0-0.2); Basophils % (auto) 0.2 % (0.0-2.0); Eosinophils # (auto) 0.1 10 ^3/uL (0-0.8); Eosinophils % (auto) 0.9 % (0.0-7.0); Hemoglobin 8.5 g/dL (12.2-16.2); Lymphocytes # (auto) 0.9 10 ^3/uL (0.4-5.4); Lymphocytes % (auto) 8.3 % (10.0-50.0); Mean Corpuscular Hemoglobin 27.3 pg (28.0-32.0); Mean Corpuscular Hgb Conc. 32.5 g/dL (32.0-36.0); Mean Corpuscular Volume 84.1 fL (80.0-100.0); Monocytes # (auto) 1.2 10 ^3/uL (0-1.3); Neutrophils # (auto) 8.2 10 ^3/uL (1.6-8.6); Neutrophils % (auto) 78.6 % (37.0-80.0); Nucleated Red Blood Cells % 0.1 %; Red Blood Cells 3.09 10^6/uL (4.0-5.20); White Blood Cell 10.4 10^3/uL (4.4-10.8)
[2023-12-25 05:55] LABS: Alanine Aminotransferase 15 U/L (7-40); Albumin 2.6 g/dL (3.2-4.8); Alkaline Phosphatase 81 U/L (46-116); Anion Gap 6 (5-15); Aspartate Aminotransferase 30 U/L (13-40); BUN/Creatinine Ratio 25.7 (10.0-20.0); Blood Urea Nitrogen 9 mg/dL (9-23); Carbon Dioxide 18 mmol/L (20-30); Chloride 112 mmol/L (98-107); Glucose 157 mg/dL (74-106); Magnesium 1.6 mg/dL (1.6-2.6); Potassium 3.2 mmol/L (3.5-5.1); Sodium 136 mmol/L (136-145)
[2023-12-25 05:56] LABS: Bilirubin, Total 0.6 mg/dL (0.2-1.0); Phosphorus 2.7 mg/dL (2.4-5.1); Total Protein 5.5 g/dL (5.7-8.2)
[2023-12-25] MEDS: POTASSIUM CHL 20MEQ/100ML 100 ML IV ONE (09:10)
[2023-12-25] MEDS: LACOSAMIDE 50 MG TAB PO SCH (11:05)
[2023-12-25] MEDS: levETIRAcetam 500 mg/100ml 100 ML IV SCH (11:06)
[2023-12-25] MEDS: VANCOMYCIN 500 MG in D5W 5% 100 ML IV SCH (13:31)
[2023-12-25] MEDS: MAGNESIUM SULFATE 1GM/100ML 100 ML IV SCH (17:03)
[2023-12-25] MEDS: POTASSIUM PHOSPHATE 22 MEQ in SODIUM CHL 0.9% 100 ML IV ONE (21:33)
[2023-12-26] VITALS (103 sets, daily range): BP systolic 80–119; BP diastolic 44–69; PULSE 10–99; RESP 14–40; TEMP 97.1–99.3; O2SAT 92–100
[2023-12-26 04:24] LABS: Calcium 7.9 mg/dL (8.7-10.4)
[2023-12-26 04:28] LABS: Albumin 2.5 g/dL (3.2-4.8)
[2023-12-26 04:29] LABS: BUN/Creatinine Ratio 34.5 (10.0-20.0); Magnesium 1.6 mg/dL (1.6-2.6)
[2023-12-26 04:31] LABS: Phosphorus 3.6 mg/dL (2.4-5.1)
[2023-12-26] MEDS: ACETAMINOPHEN 650 mg PER 20.3 mL UD NG PRN (09:18)
[2023-12-26 09:48] LABS: Basophils # (auto) 0 10 ^3/uL (0-0.2); Basophils % (auto) 0.3 % (0.0-2.0); Eosinophils # (auto) 0.2 10 ^3/uL (0-0.8); Eosinophils % (auto) 3.3 % (0.0-7.0); Hemoglobin 8.2 g/dL (12.2-16.2); Monocytes # (auto) 0.8 10 ^3/uL (0-1.3); Neutrophils # (auto) 5.5 10 ^3/uL (1.6-8.6); White Blood Cell 7.3 10^3/uL (4.4-10.8)
[2023-12-26 09:50] LABS: Hematocrit 25.6 % (36.0-46.0); Lymphocytes # (auto) 0.7 10 ^3/uL (0.4-5.4); Lymphocytes % (auto) 10.1 % (10.0-50.0); Mean Corpuscular Hemoglobin 27.2 pg (28.0-32.0); Mean Corpuscular Hgb Conc. 32.1 g/dL (32.0-36.0); Mean Corpuscular Volume 84.8 fL (80.0-100.0); Monocytes % (auto) 10.6 % (0.0-12.0); Neutrophils % (auto) 75.7 % (37.0-80.0); Red Blood Cells 3.02 10^6/uL (4.0-5.20); Red Cell Distribution Width 17.3 % (11.8-14.3)
[2023-12-26 10:10] LABS: Chloride 110 mmol/L (98-107); Potassium 2.8 mmol/L (3.5-5.1); Sodium 137 mmol/L (136-145)
[2023-12-26 10:11] LABS: Anion Gap 7 (5-15); Calcium 7.8 mg/dL (8.5-10.1); Carbon Dioxide 20 mmol/L (20-30)
[2023-12-26 10:16] LABS: Blood Urea Nitrogen 9 mg/dL (9-23); Glucose 119 mg/dL (74-106)
[2023-12-26] MEDS ORDERED: TPN PER PHARMACY 0 ML IV SCH (10:45)
[2023-12-26] MEDS: POTASSIUM CHL 20MEQ/100ML 100 ML IV SCH (10:56)
[2023-12-26] MEDS: MAGNESIUM SULFATE 1GM/100ML 100 ML IV ONE (10:57)
[2023-12-26] MEDS ORDERED: MAGNESIUM SULFATE 1GM/100ML 100 ML IV SCH (11:00)
[2023-12-26 11:22] LABS: Magnesium 1.6 mg/dL (1.6-2.6)
[2023-12-26 11:23] LABS: Phosphorus 2.6 mg/dL (2.4-5.1)
[2023-12-26 17:04] LABS: Chloride 113 mmol/L (98-107); Potassium 3.8 mmol/L (3.5-5.1); Sodium 139 mmol/L (136-145)
[2023-12-26 17:06] LABS: Anion Gap 6 (5-15); Calcium 8.3 mg/dL (8.7-10.4); Carbon Dioxide 20 mmol/L (20-30)
[2023-12-26 17:11] LABS: BUN/Creatinine Ratio 32.4 (10.0-20.0); Blood Urea Nitrogen 11 mg/dL (9-23); Glucose 121 mg/dL (74-106)
[2023-12-26 17:12] LABS: Magnesium 1.9 mg/dL (1.6-2.6)
[2023-12-26 17:13] LABS: Phosphorus 2.4 mg/dL (2.4-5.1)
[2023-12-26] MEDS: TPN PER PHARMACY IV NR (20:43)
[2023-12-27] VITALS (103 sets, daily range): BP systolic 85–129; BP diastolic 45–73; PULSE 69–105; RESP 14–41; TEMP 97.2–98.6; O2SAT 83–100
[2023-12-27] MEDS: LACOSAMIDE 50 MG TAB PO SCH (01:29)
[2023-12-27 04:00] LABS: Basophils # (auto) 0 10 ^3/uL (0-0.2); Eosinophils # (auto) 0.3 10 ^3/uL (0-0.8); Hemoglobin 7.7 g/dL (12.2-16.2); Lymphocytes # (auto) 0.6 10 ^3/uL (0.4-5.4); Nucleated Red Blood Cells % 0.2 %
[2023-12-27 04:03] LABS: Basophils % (auto) 0.4 % (0.0-2.0); Eosinophils % (auto) 4.4 % (0.0-7.0); Hematocrit 24.5 % (36.0-46.0); Lymphocytes % (auto) 8.8 % (10.0-50.0); Mean Corpuscular Hemoglobin 28.4 pg (28.0-32.0); Mean Corpuscular Hgb Conc. 31.6 g/dL (32.0-36.0); Mean Corpuscular Volume 90.1 fL (80.0-100.0); Monocytes # (auto) 0.3 10 ^3/uL (0-1.3); Neutrophils # (auto) 5.7 10 ^3/uL (1.6-8.6); Neutrophils % (auto) 81.4 % (37.0-80.0); Red Blood Cells 2.73 10^6/uL (4.0-5.20)
[2023-12-27 04:15] LABS: INR 1.19 (0.9-1.15); Partial Thromboplastin Time 37.9 SEC (24.5-34.5); Prothrombin Time 12.5 sec (9.3-11.8)
[2023-12-27 09:24] LABS: Chloride 112 mmol/L (98-107); Potassium 4.5 mmol/L (3.5-5.1); Sodium 138 mmol/L (136-145)
[2023-12-27 09:31] LABS: Anion Gap 6 (5-15); Carbon Dioxide 20 mmol/L (20-30)
[2023-12-27 09:32] LABS: Calcium 8.4 mg/dL (8.5-10.1)
[2023-12-27 09:34] LABS: Alkaline Phosphatase 79 U/L (46-116)
[2023-12-27 09:36] LABS: Glucose 146 mg/dL (74-106)
[2023-12-27 09:37] LABS: Alanine Aminotransferase 13 U/L (7-40); Blood Urea Nitrogen 10 mg/dL (9-23); Triglycerides 111 mg/dL (< 150)
[2023-12-27 09:38] LABS: Albumin 2.5 g/dL (3.2-4.8); Aspartate Aminotransferase 32 U/L (13-40)
[2023-12-27 09:39] LABS: Phosphorus 1.6 mg/dL (2.4-5.1); Total Protein 5.4 g/dL (5.7-8.2)
[2023-12-27 09:52] LABS: Bilirubin, Total 0.7 mg/dL (0.2-1.0)
[2023-12-27] MEDS: ACETYLCYSTEINE 20%(200MG/ML) SOL 4ML NEB SCH (12:44)
[2023-12-27] MEDS ORDERED: ACETYLCYSTEINE 20%(200MG/ML) SOL 4ML NEB SCH (14:00)
[2023-12-27] MEDS: SODIUM PHOSPHATES 20 MEQ in SODIUM CHL 0.9% 100 ML IV ONE (15:17)
[2023-12-27] MEDS: TPN PER PHARMACY IV NR (20:12)
[2023-12-28] VITALS (64 sets, daily range): BP systolic 85–130; BP diastolic 44–78; PULSE 69–100; RESP 17–30; TEMP 97.4–98.4; O2SAT 89–100
[2023-12-28 04:22] LABS: Red Blood Cells 2.53 10^6/uL (4.0-5.20); White Blood Cell 7.7 10^3/uL (4.4-10.8)
[2023-12-28 04:26] LABS: Hematocrit 20.3 % (36.0-46.0); Mean Corpuscular Hemoglobin 27.8 pg (28.0-32.0); Mean Corpuscular Hgb Conc. 34.6 g/dL (32.0-36.0); Mean Corpuscular Volume 80.3 fL (80.0-100.0); Red Cell Distribution Width 16.5 % (11.8-14.3)
[2023-12-28 04:44] LABS: Alanine Aminotransferase 10 U/L (7-40); Alkaline Phosphatase 76 U/L (46-116); Anion Gap 11 (5-15); BUN/Creatinine Ratio 44.4 (10.0-20.0); Blood Urea Nitrogen 16 mg/dL (9-23); Calcium 8.3 mg/dL (8.7-10.4); Carbon Dioxide 17 mmol/L (20-30); Chloride 111 mmol/L (98-107); Glucose 155 mg/dL (74-106); Magnesium 1.8 mg/dL (1.6-2.6); Potassium 3.6 mmol/L (3.5-5.1); Sodium 139 mmol/L (136-145)
[2023-12-28 04:45] LABS: Albumin 2.3 g/dL (3.2-4.8); Aspartate Aminotransferase 15 U/L (13-40)
[2023-12-28 04:46] LABS: Bilirubin, Total 0.5 mg/dL (0.2-1.0); Phosphorus 1.9 mg/dL (2.4-5.1); Total Protein 5.1 g/dL (5.7-8.2)
[2023-12-28 04:58] LABS: Basophils % (manual) 0 (0.0-2.0); Blast Cells 0; Metamyelocytes % 0; Myelocytes % 0; Promyelocytes % 0; Reactive Lymphocytes 0
[2023-12-28 08:25] LABS: Band Neutrophils % (manual) 6; Eosinophils % (manual) 4 (0-7); Lymphocytes % (manual) 10 (10.0-50.0); Monocytes % (manual) 6 (0-12); Platelet Estimate Adequate
[2023-12-28 08:59] LABS: % Iron Saturation 12.4 % (15-50)
[2023-12-28] MEDS: POTASSIUM PHOSPHATE 22 MEQ in SODIUM CHL 0.9% 100 ML IV ONE (11:05)
[2023-12-28 11:09] LABS: Folate (Folic Acid) 11.43 ng/mL (>5.38)
[2023-12-28 11:27] LABS: Ferritin 3196.9 ng/mL (10-291)
[2023-12-28 12:49] LABS: Hematocrit 22.5 % (36.0-46.0); Hemoglobin 7.5 g/dL (12.2-16.2)
[2023-12-28] MEDS: TPN PER PHARMACY IV NR (20:37)
[2023-12-29] VITALS (38 sets, daily range): BP systolic 84–130; BP diastolic 41–78; PULSE 71–101; RESP 16–39; TEMP 97.3–97.8; O2SAT 90–100
[2023-12-29 06:41] LABS: Hematocrit 21.7 % (36.0-46.0); Hemoglobin 7.2 g/dL (12.2-16.2); Mean Corpuscular Hgb Conc. 33.2 g/dL (32.0-36.0)
[2023-12-29 06:44] LABS: Mean Corpuscular Hemoglobin 26.9 pg (28.0-32.0); Mean Corpuscular Volume 81.1 fL (80.0-100.0); Red Blood Cells 2.68 10^6/uL (4.0-5.20); Red Cell Distribution Width 16.8 % (11.8-14.3); White Blood Cell 10.2 10^3/uL (4.4-10.8)
[2023-12-29 06:56] LABS: Chloride 109 mmol/L (98-107); Potassium 3.6 mmol/L (3.5-5.1); Sodium 137 mmol/L (136-145)
[2023-12-29 06:57] LABS: Anion Gap 6 (5-15); Carbon Dioxide 22 mmol/L (20-30)
[2023-12-29 07:00] LABS: Basophils % (manual) 0 (0.0-2.0); Blast Cells 0; Metamyelocytes % 0; Myelocytes % 0; Promyelocytes % 0; Reactive Lymphocytes 0
[2023-12-29 07:02] LABS: Glucose 120 mg/dL (74-106)
[2023-12-29 07:03] LABS: BUN/Creatinine Ratio 45.7 (10.0-20.0); Blood Urea Nitrogen 16 mg/dL (9-23); Magnesium 1.8 mg/dL (1.6-2.6)
[2023-12-29 07:05] LABS: Phosphorus 3.3 mg/dL (2.4-5.1)
[2023-12-29 07:13] LABS: INR 1.07 (0.9-1.15); Partial Thromboplastin Time 33.7 SEC (24.5-34.5); Prothrombin Time 11.3 sec (9.3-11.8)
[2023-12-29 08:39] LABS: Band Neutrophils % (manual) 8; Eosinophils % (manual) 5 (0-7); Lymphocytes % (manual) 17 (10.0-50.0); Monocytes % (manual) 5 (0-12); Platelet Estimate Adequate
[2023-12-29] MEDS: POTASSIUM CHL 20MEQ/100ML 100 ML IV ONE (09:11)
[2023-12-29] MEDS: POTASSIUM PHOSPHATE 22 MEQ in SODIUM CHL 0.9% 100 ML IV ONE (09:13)
[2023-12-29] MEDS: MAGNESIUM SULFATE 1GM/100ML 100 ML IV ONE (09:13)
[2023-12-29] MEDS ORDERED: DAPTOmycin 6MG/KG PER PHARMACY 0 MG IV SCH (16:15)
[2023-12-29] MEDS: DAPTOmycin 300 MG in SODIUM CHL 0.9% 50 ML IV SCH (18:59)
[2023-12-29] MEDS: TPN PER PHARMACY IV NR (20:38)
[2023-12-30] VITALS (21 sets, daily range): BP systolic 88–117; BP diastolic 48–79; PULSE 79–120; RESP 15–34; TEMP 97.2–98.9; O2SAT 88–100
[2023-12-30 06:18] LABS: Chloride 107 mmol/L (98-107); Potassium 4.3 mmol/L (3.5-5.1); Sodium 137 mmol/L (136-145)
[2023-12-30 06:19] LABS: Anion Gap 7 (5-15); Carbon Dioxide 23 mmol/L (20-30)
[2023-12-30 06:23] LABS: Hemoglobin 7.2 g/dL (12.2-16.2); Mean Corpuscular Hgb Conc. 33.4 g/dL (32.0-36.0)
[2023-12-30 06:25] LABS: Blood Urea Nitrogen 19 mg/dL (9-23); Glucose 79 mg/dL (74-106); INR 1.07 (0.9-1.15); Magnesium 2.1 mg/dL (1.6-2.6); Prothrombin Time 11.3 sec (9.3-11.8)
[2023-12-30 06:27] LABS: Phosphorus 4.6 mg/dL (2.4-5.1)
[2023-12-30 06:31] LABS: Hematocrit 21.4 % (36.0-46.0); Mean Corpuscular Volume 80.7 fL (80.0-100.0); Red Blood Cells 2.65 10^6/uL (4.0-5.20); Red Cell Distribution Width 16.9 % (11.8-14.3); White Blood Cell 12.2 10^3/uL (4.4-10.8)
[2023-12-30 06:45] LABS: Band Neutrophils % (manual) 0; Basophils % (manual) 0 (0.0-2.0); Blast Cells 0; Eosinophils % (manual) 0 (0-7); Metamyelocytes % 0; Myelocytes % 0; Promyelocytes % 0; Reactive Lymphocytes 0
[2023-12-30 07:36] LABS: Lymphocytes % (manual) 17 (10.0-50.0); Monocytes % (manual) 9 (0-12); Platelet Estimate Adequate
[2023-12-30] MEDS: TPN PER PHARMACY IV NR (20:45)
[2023-12-31] VITALS (37 sets, daily range): BP systolic 86–173; BP diastolic 43–87; PULSE 84–111; RESP 14–42; TEMP 97.5–99.9; O2SAT 86–100
[2023-12-31 08:01] LABS: Hematocrit 26.3 % (36.0-46.0); Hemoglobin 8.8 g/dL (12.2-16.2); Mean Corpuscular Hemoglobin 27.2 pg (28.0-32.0); Mean Corpuscular Hgb Conc. 33.3 g/dL (32.0-36.0); Mean Corpuscular Volume 81.6 fL (80.0-100.0); Red Blood Cells 3.23 10^6/uL (4.0-5.20); Red Cell Distribution Width 16.6 % (11.8-14.3); White Blood Cell 13.3 10^3/uL (4.4-10.8)
[2023-12-31 08:03] LABS: Chloride 106 mmol/L (98-107); Potassium 3.9 mmol/L (3.5-5.1); Sodium 135 mmol/L (136-145)
[2023-12-31 08:04] LABS: Anion Gap 7 (5-15); Calcium 7.8 mg/dL (8.5-10.1); Carbon Dioxide 22 mmol/L (20-30)
[2023-12-31 08:05] LABS: Basophils % (manual) 0 (0.0-2.0); Blast Cells 0; Myelocytes % 0; Promyelocytes % 0; Reactive Lymphocytes 0
[2023-12-31 08:06] LABS: INR 1.09 (0.9-1.15); Partial Thromboplastin Time 34.7 SEC (24.5-34.5); Prothrombin Time 11.5 sec (9.3-11.8)
[2023-12-31 08:09] LABS: Blood Urea Nitrogen 20 mg/dL (9-23); GFR African American 155 mL/min; GFR Non-African American 128 mL/min; Glucose 130 mg/dL (74-106)
[2023-12-31 08:10] LABS: Magnesium 2.4 mg/dL (1.6-2.6)
[2023-12-31 08:11] LABS: Albumin 2.6 g/dL (3.2-4.8); Phosphorus 3.6 mg/dL (2.4-5.1)
[2023-12-31 08:32] LABS: Anisocytosis Slight; Band Neutrophils % (manual) 4; Eosinophils % (manual) 2 (0-7); Lymphocytes % (manual) 16 (10.0-50.0); Metamyelocytes % 1; Monocytes % (manual) 6 (0-12); Platelet Estimate Adequate
[2023-12-31 12:55] LABS: Base Excess -2.2 mmol/L (-2.0-2.0)
[2023-12-31] MEDS: CALCIUM GLUC 1,000mg/50ml-NS 50 ML IV ONE (16:45)
[2023-12-31] MEDS: FUROSEMIDE 20 MG/2 ML VIAL IV ONE (18:25)
[2023-12-31] MEDS: ALBUMIN 25% 100 ML IV SCH (18:39)
[2023-12-31] MEDS: NOREPINEPHRINE 8 MG/250ML KIT 250 ML IV ONE (18:41)
[2023-12-31] MEDS: ETOMIDATE (2MG/ML) 20ML VIAL IV ONE (19:06)
[2023-12-31] MEDS: ROCURONIUM 10MG/ML 10ML VIAL IV ONE (19:06)
[2023-12-31] MEDS: fentaNYL Drip 2500mCg/250mlNS 250 ML IV SCH (19:07)
[2023-12-31] MEDS: NOREPINEPHRINE 8 MG/250ML KIT 250 ML IV SCH (19:15)
[2023-12-31 20:49] LABS: Base Excess -2.3 mmol/L (-2.0-2.0)
[2023-12-31] MEDS: TPN PER PHARMACY IV NR (21:31)
[2023-12-31] MEDS: LACOSAMIDE 100 MG in SODIUM CHL 0.9% 50 ML IV SCH (22:13)
[2024-01-01] VITALS (118 sets, daily range): BP systolic 85–136; BP diastolic 37–80; PULSE 69–107; RESP 12–35; TEMP 98.4–100.6; O2SAT 95–100
[2024-01-01 04:13] LABS: Albumin 3.2 g/dL (3.2-4.8); Alkaline Phosphatase 113 U/L (46-116); Anion Gap 6 (5-15); Aspartate Aminotransferase 18 U/L (13-40); BUN/Creatinine Ratio 46.3 (10.0-20.0); Blood Urea Nitrogen 25 mg/dL (9-23); Calcium 8.1 mg/dL (8.7-10.4); Carbon Dioxide 26 mmol/L (20-30); Chloride 104 mmol/L (98-107); Glucose 169 mg/dL (74-106); Magnesium 2.4 mg/dL (1.6-2.6); Phosphorus 3.6 mg/dL (2.4-5.1); Potassium 3.6 mmol/L (3.5-5.1); Sodium 136 mmol/L (136-145)
[2024-01-01 04:14] LABS: Bilirubin, Total 0.4 mg/dL (0.2-1.0)
[2024-01-01 04:21] LABS: Alanine Aminotransferase 9 U/L (7-40)
[2024-01-01 08:15] LABS: Base Excess 0.1 mmol/L (-2.0-2.0)
[2024-01-01] MEDS: CALCIUM GLUC 1,000mg/50ml-NS 50 ML IV ONE (09:45)
[2024-01-01 09:46] LABS: Hematocrit 24.9 % (36.0-46.0); Hemoglobin 8.2 g/dL (12.2-16.2); Mean Corpuscular Hemoglobin 27.1 pg (28.0-32.0); Mean Corpuscular Hgb Conc. 32.9 g/dL (32.0-36.0); Mean Corpuscular Volume 82.5 fL (80.0-100.0); Red Blood Cells 3.02 10^6/uL (4.0-5.20); Red Cell Distribution Width 16.3 % (11.8-14.3)
[2024-01-01 10:04] LABS: Basophils % (manual) 0 (0.0-2.0); Blast Cells 0; Eosinophils % (manual) 0 (0-7); Metamyelocytes % 0; Myelocytes % 0; Promyelocytes % 0; Reactive Lymphocytes 0
[2024-01-01 10:35] LABS: Basophils # (auto) 0.1 10 ^3/uL (0-0.2); Eosinophils # (auto) 0.2 10 ^3/uL (0-0.8); Hemoglobin 7.3 g/dL (12.2-16.2); Lymphocytes # (auto) 1.2 10 ^3/uL (0.4-5.4); Lymphocytes % (auto) 4.4 % (10.0-50.0); Mean Corpuscular Volume 82.3 fL (80.0-100.0); Monocytes # (auto) 0.9 10 ^3/uL (0-1.3); Monocytes % (auto) 3.3 % (0.0-12.0); Neutrophils # (auto) 24.5 10 ^3/uL (1.6-8.6)
[2024-01-01 10:36] LABS: Basophils % (auto) 0.3 % (0.0-2.0); Eosinophils % (auto) 0.8 % (0.0-7.0); Hematocrit 21.8 % (36.0-46.0); Mean Corpuscular Hemoglobin 27.5 pg (28.0-32.0); Mean Corpuscular Hgb Conc. 33.4 g/dL (32.0-36.0); Neutrophils % (auto) 91.2 % (37.0-80.0); Red Blood Cells 2.65 10^6/uL (4.0-5.20); Red Cell Distribution Width 16.5 % (11.8-14.3); White Blood Cell 26.9 10^3/uL (4.4-10.8)
[2024-01-01 10:45] LABS: Band Neutrophils % (manual) 5
[2024-01-01 10:46] LABS: Monocytes % (manual) 4 (0-12)
[2024-01-01 10:47] LABS: Lymphocytes % (manual) 8 (10.0-50.0)
[2024-01-01 10:48] LABS: Anisocytosis Slight; Platelet Estimate Adequate
[2024-01-01 10:49] LABS: Albumin 3.3 g/dL (3.2-4.8); Alkaline Phosphatase 93 U/L (46-116); Anion Gap 6 (5-15); Aspartate Aminotransferase 13 U/L (13-40); BUN/Creatinine Ratio 54.2 (10.0-20.0); Blood Urea Nitrogen 26 mg/dL (9-23); Calcium 8.4 mg/dL (8.7-10.4); Carbon Dioxide 27 mmol/L (20-30); Chloride 105 mmol/L (98-107); Glucose 140 mg/dL (74-106); Potassium 3.5 mmol/L (3.5-5.1); Sodium 138 mmol/L (136-145)
[2024-01-01 10:50] LABS: Bilirubin, Total 0.5 mg/dL (0.2-1.0); Total Protein 5.8 g/dL (5.7-8.2)
[2024-01-01] MEDS: POTASSIUM CHL 20MEQ/100ML 100 ML IV ONE ×2 (10:51→11:34)
[2024-01-01 10:52] LABS: Alanine Aminotransferase < 9 U/L (7-40)
[2024-01-01] MEDS: TPN PER PHARMACY IV NR (20:17)
[2024-01-02] VITALS (114 sets, daily range): BP systolic 71–139; BP diastolic 37–74; PULSE 71–101; RESP 12–32; TEMP 98.6–101.3; O2SAT 94–100
[2024-01-02 03:24] LABS: Eosinophils # (auto) 0.3 10 ^3/uL (0-0.8); Eosinophils % (auto) 1.9 % (0.0-7.0); Neutrophils # (auto) 14.3 10 ^3/uL (1.6-8.6); Nucleated Red Blood Cells % 0.1 %; White Blood Cell 16.6 10^3/uL (4.4-10.8)
[2024-01-02 03:25] LABS: Basophils # (auto) 0.2 10 ^3/uL (0-0.2); Basophils % (auto) 0.9 % (0.0-2.0); Hematocrit 23.1 % (36.0-46.0); Hemoglobin 7.7 g/dL (12.2-16.2); Lymphocytes # (auto) 1.2 10 ^3/uL (0.4-5.4); Mean Corpuscular Hemoglobin 27.5 pg (28.0-32.0); Mean Corpuscular Hgb Conc. 33.1 g/dL (32.0-36.0); Mean Corpuscular Volume 83.1 fL (80.0-100.0); Monocytes # (auto) 0.7 10 ^3/uL (0-1.3); Monocytes % (auto) 4.5 % (0.0-12.0); Neutrophils % (auto) 85.7 % (37.0-80.0); Red Blood Cells 2.78 10^6/uL (4.0-5.20); Red Cell Distribution Width 17.1 % (11.8-14.3)
[2024-01-02 03:47] LABS: Albumin 3.2 g/dL (3.2-4.8); Alkaline Phosphatase 93 U/L (46-116); Anion Gap 5 (5-15); Aspartate Aminotransferase 15 U/L (13-40); BUN/Creatinine Ratio 55.3 (10.0-20.0); Bilirubin, Total 0.4 mg/dL (0.2-1.0); Blood Urea Nitrogen 26 mg/dL (9-23); Calcium 8.6 mg/dL (8.7-10.4); Carbon Dioxide 26 mmol/L (20-30); Chloride 105 mmol/L (98-107); Glucose 144 mg/dL (74-106); Magnesium 2.2 mg/dL (1.6-2.6); Phosphorus 3.1 mg/dL (2.4-5.1); Potassium 4.5 mmol/L (3.5-5.1); Sodium 136 mmol/L (136-145); Total Protein 5.9 g/dL (5.7-8.2)
[2024-01-02 03:53] LABS: Alanine Aminotransferase < 9 U/L (7-40)
[2024-01-02 07:33] LABS: Base Excess 0.1 mmol/L (-2.0-2.0)
[2024-01-02] MEDS: TPN PER PHARMACY IV NR (20:28)
[2024-01-03] VITALS (106 sets, daily range): BP systolic 76–146; BP diastolic 20–96; PULSE 71–105; RESP 12–33; TEMP 97.3–100; O2SAT 97–100
[2024-01-03 04:01] LABS: Basophils # (auto) 0.1 10 ^3/uL (0-0.2); Basophils % (auto) 0.7 % (0.0-2.0); Eosinophils # (auto) 0.2 10 ^3/uL (0-0.8); Eosinophils % (auto) 2.1 % (0.0-7.0); Hematocrit 23.2 % (36.0-46.0); Hemoglobin 7.8 g/dL (12.2-16.2); Mean Corpuscular Hemoglobin 28.4 pg (28.0-32.0); Mean Corpuscular Hgb Conc. 33.5 g/dL (32.0-36.0); Mean Corpuscular Volume 84.8 fL (80.0-100.0); Monocytes # (auto) 0.7 10 ^3/uL (0-1.3); Monocytes % (auto) 6.5 % (0.0-12.0); Neutrophils # (auto) 8.7 10 ^3/uL (1.6-8.6); Neutrophils % (auto) 81.7 % (37.0-80.0); Nucleated Red Blood Cells % 0.1 %; Red Blood Cells 2.74 10^6/uL (4.0-5.20); Red Cell Distribution Width 17.5 % (11.8-14.3); White Blood Cell 10.7 10^3/uL (4.4-10.8)
[2024-01-03 04:19] LABS: Alanine Aminotransferase 10 U/L (7-40); Albumin 2.9 g/dL (3.2-4.8); Alkaline Phosphatase 89 U/L (46-116); Anion Gap 4 (5-15); Aspartate Aminotransferase 19 U/L (13-40); BUN/Creatinine Ratio 65.8 (10.0-20.0); Bilirubin, Total 0.5 mg/dL (0.2-1.0); Blood Urea Nitrogen 25 mg/dL (9-23); Calcium 8.6 mg/dL (8.7-10.4); Carbon Dioxide 27 mmol/L (20-30); Chloride 105 mmol/L (98-107); Glucose 147 mg/dL (74-106); Sodium 136 mmol/L (136-145); Total Protein 5.7 g/dL (5.7-8.2)
[2024-01-03 04:31] LABS: Triglycerides 82 mg/dL (< 150)
[2024-01-03 06:52] LABS: Base Excess -1.7 mmol/L (-2.0-2.0)
[2024-01-03 11:30] LABS: INR 1.05 (0.9-1.15); Prothrombin Time 11.1 sec (9.3-11.8)
[2024-01-03] MEDS ORDERED: DEXTROSE (50%) 50ML SYRG IV SCH (11:45)
[2024-01-03] MEDS: NOREPINEPHRINE 8 MG/250ML KIT 250 ML IV SCH (11:45)
[2024-01-03] MEDS: InsuLIN REG 1unit/0.01ml Soln (100units/ml) SC SCH (12:00)
[2024-01-03] MEDS: ACCU-CHEK COMFORT CURVE STRIP VI SCH (12:00)
[2024-01-03] MEDS: MIDAZOLAM DRIP 50 mg/50mL 50 ML IV SCH (16:03)
[2024-01-03] MEDS: PROPOFOL 100 ML IV SCH (18:00)
[2024-01-03] MEDS: TPN PER PHARMACY IV NR (20:22)
[2024-01-04] VITALS (113 sets, daily range): BP systolic 75–162; BP diastolic 43–102; PULSE 79–115; RESP 14–34; TEMP 98.2–99.7; O2SAT 96–100
[2024-01-04 04:05] LABS: Basophils # (auto) 0.1 10 ^3/uL (0-0.2); Basophils % (auto) 1.4 % (0.0-2.0); Eosinophils # (auto) 0.2 10 ^3/uL (0-0.8); Eosinophils % (auto) 1.8 % (0.0-7.0); Hematocrit 22.8 % (36.0-46.0); Hemoglobin 7.7 g/dL (12.2-16.2); Lymphocytes # (auto) 1.2 10 ^3/uL (0.4-5.4); Mean Corpuscular Hemoglobin 28.2 pg (28.0-32.0); Mean Corpuscular Hgb Conc. 33.8 g/dL (32.0-36.0); Mean Corpuscular Volume 83.4 fL (80.0-100.0); Monocytes % (auto) 9.3 % (0.0-12.0); Neutrophils # (auto) 8.2 10 ^3/uL (1.6-8.6); Neutrophils % (auto) 76.5 % (37.0-80.0); Nucleated Red Blood Cells % 0.3 %; Red Blood Cells 2.73 10^6/uL (4.0-5.20); White Blood Cell 10.7 10^3/uL (4.4-10.8)
[2024-01-04 04:23] LABS: Alanine Aminotransferase 11 U/L (7-40); Albumin 2.8 g/dL (3.2-4.8); Alkaline Phosphatase 92 U/L (46-116); Anion Gap 6 (5-15); Aspartate Aminotransferase 23 U/L (13-40); BUN/Creatinine Ratio 61.1 (10.0-20.0); Blood Urea Nitrogen 22 mg/dL (9-23); Calcium 8.3 mg/dL (8.7-10.4); Carbon Dioxide 24 mmol/L (20-30); Chloride 109 mmol/L (98-107); Glucose 141 mg/dL (74-106); Magnesium 1.7 mg/dL (1.6-2.6); Phosphorus 2.4 mg/dL (2.4-5.1); Potassium 3.1 mmol/L (3.5-5.1); Sodium 139 mmol/L (136-145)
[2024-01-04 04:24] LABS: Bilirubin, Total 0.6 mg/dL (0.2-1.0); Total Protein 5.3 g/dL (5.7-8.2)
[2024-01-04 04:25] LABS: INR 1.1 (0.9-1.15); Partial Thromboplastin Time 32.3 SEC (24.5-34.5); Prothrombin Time 11.6 sec (9.3-11.8)
[2024-01-04] MEDS: POTASSIUM CHL 20MEQ/100ML 100 ML IV SCH (07:15)
[2024-01-04 07:20] LABS: Base Excess -2.9 mmol/L (-2.0-2.0)
[2024-01-04] MEDS ORDERED: Jevity 1.2 Cal/Fiber 1 Liter GT SCH ×2 (09:00)
[2024-01-04] MEDS: SODIUM PHOSPHATES 24 MEQ in SODIUM CHL 0.9% 100 ML IV ONE (12:11)
[2024-01-04] MEDS ORDERED: POTASSIUM CHL 20MEQ/100ML 100 ML IV SCH (18:00)
[2024-01-04] MEDS ORDERED: TPN PER PHARMACY IV NR ×2 (20:00)
[2024-01-05] VITALS (107 sets, daily range): BP systolic 80–131; BP diastolic 39–103; PULSE 65–86; RESP 15–23; TEMP 97.7–99; O2SAT 98–100
[2024-01-05 04:52] LABS: Anion Gap 6 (5-15); Calcium 8.6 mg/dL (8.7-10.4); Carbon Dioxide 25 mmol/L (20-30); Chloride 108 mmol/L (98-107); Potassium 4.3 mmol/L (3.5-5.1); Sodium 139 mmol/L (136-145)
[2024-01-05 04:58] LABS: BUN/Creatinine Ratio 48.6 (10.0-20.0); Blood Urea Nitrogen 18 mg/dL (9-23); Glucose 95 mg/dL (74-106)
[2024-01-05 04:59] LABS: Magnesium 1.7 mg/dL (1.6-2.6)
[2024-01-05 05:15] LABS: INR 1.1 (0.9-1.15); Partial Thromboplastin Time 31.9 SEC (24.5-34.5); Prothrombin Time 11.6 sec (9.3-11.8)
[2024-01-05 05:21] LABS: Hematocrit 22.6 % (36.0-46.0); Hemoglobin 7.7 g/dL (12.2-16.2); Mean Corpuscular Hgb Conc. 34.1 g/dL (32.0-36.0); Red Blood Cells 2.66 10^6/uL (4.0-5.20); Red Cell Distribution Width 18.5 % (11.8-14.3); White Blood Cell 11.1 10^3/uL (4.4-10.8)
[2024-01-05 05:38] LABS: Band Neutrophils % (manual) 0; Basophils % (manual) 0 (0.0-2.0); Blast Cells 0; Metamyelocytes % 0; Myelocytes % 0; Promyelocytes % 0
[2024-01-05 07:41] LABS: Base Excess -3.2 mmol/L (-2.0-2.0)
[2024-01-05 08:18] LABS: Eosinophils % (manual) 1 (0-7); Lymphocytes % (manual) 21 (10.0-50.0); Monocytes % (manual) 5 (0-12); Platelet Estimate Adequate; Reactive Lymphocytes 1
[2024-01-05] MEDS: MAGNESIUM SULFATE 1GM/100ML 100 ML IV ONE (09:33)
[2024-01-06] VITALS (104 sets, daily range): BP systolic 74–137; BP diastolic 43–129; PULSE 54–88; RESP 13–26; TEMP 96.3–98.4; O2SAT 95–100
[2024-01-06 03:55] LABS: Basophils # (auto) 0.2 10 ^3/uL (0-0.2); Eosinophils # (auto) 0.1 10 ^3/uL (0-0.8); Monocytes # (auto) 0.8 10 ^3/uL (0-1.3)
[2024-01-06 03:57] LABS: Basophils % (auto) 1.2 % (0.0-2.0); Eosinophils % (auto) 0.9 % (0.0-7.0); Hematocrit 23.5 % (36.0-46.0); Hemoglobin 7.7 g/dL (12.2-16.2); Lymphocytes % (auto) 24.6 % (10.0-50.0); Mean Corpuscular Hemoglobin 27.7 pg (28.0-32.0); Mean Corpuscular Hgb Conc. 32.7 g/dL (32.0-36.0); Mean Corpuscular Volume 84.8 fL (80.0-100.0); Monocytes % (auto) 6.8 % (0.0-12.0); Neutrophils # (auto) 8.2 10 ^3/uL (1.6-8.6); Neutrophils % (auto) 66.5 % (37.0-80.0); Nucleated Red Blood Cells % 0.1 %; Red Blood Cells 2.77 10^6/uL (4.0-5.20); Red Cell Distribution Width 18.7 % (11.8-14.3); White Blood Cell 12.4 10^3/uL (4.4-10.8)
[2024-01-06 04:05] LABS: Chloride 107 mmol/L (98-107); Potassium 4.5 mmol/L (3.5-5.1); Sodium 139 mmol/L (136-145)
[2024-01-06 04:06] LABS: Anion Gap 7 (5-15); Calcium 8.7 mg/dL (8.7-10.4); Carbon Dioxide 25 mmol/L (20-30)
[2024-01-06 04:11] LABS: BUN/Creatinine Ratio 31.6 (10.0-20.0); Blood Urea Nitrogen 12 mg/dL (9-23); Glucose 80 mg/dL (74-106)
[2024-01-06 04:12] LABS: Magnesium 1.7 mg/dL (1.6-2.6)
[2024-01-06 04:13] LABS: Phosphorus 3.6 mg/dL (2.4-5.1)
[2024-01-06] MEDS: BUPIVACAINE 0.25% INJ 50ML VIAL ONE (06:38)
[2024-01-06] MEDS: EPINEPHrine HCL 1 MG/1 ML AMP ONE (06:38)
[2024-01-06] MEDS: LIDOCAINE 1% HCL (LOCAL ANESTH.) INJ 20ML MDV ONE (06:38)
[2024-01-06] MEDS: LIDOCAINE W/ EPINEPHRINE 2% INJ 20ML VIAL ONE (06:42)
[2024-01-06] MEDS ORDERED: ROCURONIUM 10MG/ML 10ML VIAL IV ONE (06:52)
[2024-01-06] MEDS ORDERED: GLYCOPYRROLATE 0.2 MG/ML 1ML VIAL ONE (06:52)
[2024-01-06] MEDS ORDERED: DexAMETHasone SOD PHOS 10MG/1ML VIAL INJ ONE (06:53)
[2024-01-06] MEDS ORDERED: ONDANSETRON HCL 4 MG/2 ML VIAL ONE (06:53)
[2024-01-06] MEDS ORDERED: SODIUM CHLORIDE LOCK 10 ML ONE (07:45)
[2024-01-06] MEDS ORDERED: ceFAZolin 1GM VL ONE (07:45)
[2024-01-06] MEDS: MAGNESIUM SULFATE 1GM/100ML 100 ML IV ONE (09:14)
[2024-01-06] MEDS: MICAFUNGIN SODIUM 100 MG in SODIUM CHL 0.9% 100 ML IV ONE (09:23)
[2024-01-06 13:09] LABS: Base Excess -2.2 mmol/L (-2.0-2.0)
[2024-01-06] MEDS: Ensure Enlive Vanilla 8oz Bottle PO SCH (20:44)
[2024-01-06] MEDS: ATORVASTATIN 20 MG TAB PO SCH (20:44)
[2024-01-07] VITALS (109 sets, daily range): BP systolic 69–129; BP diastolic 40–74; PULSE 67–101; RESP 14–26; TEMP 97.2–98.2; O2SAT 95–100
[2024-01-07 04:05] LABS: Basophils # (auto) 0.1 10 ^3/uL (0-0.2); Basophils % (auto) 0.7 % (0.0-2.0); Eosinophils # (auto) 0 10 ^3/uL (0-0.8); Hematocrit 25.4 % (36.0-46.0); Hemoglobin 8.4 g/dL (12.2-16.2); Lymphocytes # (auto) 2.3 10 ^3/uL (0.4-5.4); Lymphocytes % (auto) 28.8 % (10.0-50.0); Mean Corpuscular Hemoglobin 28.5 pg (28.0-32.0); Mean Corpuscular Volume 86.5 fL (80.0-100.0); Monocytes # (auto) 0.3 10 ^3/uL (0-1.3); Monocytes % (auto) 3.6 % (0.0-12.0); Neutrophils # (auto) 5.5 10 ^3/uL (1.6-8.6); Neutrophils % (auto) 66.9 % (37.0-80.0); Nucleated Red Blood Cells % 0.1 %; Red Blood Cells 2.94 10^6/uL (4.0-5.20); Red Cell Distribution Width 19.4 % (11.8-14.3); White Blood Cell 8.2 10^3/uL (4.4-10.8)
[2024-01-07 04:09] LABS: Chloride 107 mmol/L (98-107); Potassium 5.3 mmol/L (3.5-5.1); Sodium 138 mmol/L (136-145)
[2024-01-07 04:10] LABS: Anion Gap 7 (5-15); Carbon Dioxide 24 mmol/L (20-30)
[2024-01-07 04:16] LABS: BUN/Creatinine Ratio 32.7 (10.0-20.0); Blood Urea Nitrogen 17 mg/dL (9-23); Glucose 108 mg/dL (74-106)
[2024-01-07] MEDS: SODIUM ZIRCONIUM CYCL 10 GM PAK PO ONE (08:08)
[2024-01-07 08:19] LABS: Base Excess -2.6 mmol/L (-2.0-2.0)
[2024-01-07] MEDS ORDERED: Jevity 1.2 Cal/Fiber 1 Liter GT SCH (09:15)
[2024-01-07] MEDS: MICAFUNGIN SODIUM 100 MG in SODIUM CHL 0.9% 100 ML IV SCH (11:01)
[2024-01-07] MEDS: fentaNYL Drip 2500mCg/250mlNS 250 ML IV SCH (21:00)
[2024-01-07] MEDS: LINEZOLID 600MG/300ML 300 ML IV SCH (22:51)
[2024-01-07] MEDS: MINOCYCLINE HCL 100 MG CAP PO SCH (22:53)
[2024-01-08] VITALS (112 sets, daily range): BP systolic 83–139; BP diastolic 40–88; PULSE 64–106; RESP 14–27; TEMP 97.5–99.5; O2SAT 94–99
[2024-01-08 03:47] LABS: Eosinophils # (auto) 0 10 ^3/uL (0-0.8); Hemoglobin 7.4 g/dL (12.2-16.2); Nucleated Red Blood Cells % 0.1 %; Red Cell Distribution Width 19.3 % (11.8-14.3)
[2024-01-08 03:50] LABS: Basophils # (auto) 0.1 10 ^3/uL (0-0.2); Basophils % (auto) 1.3 % (0.0-2.0); Eosinophils % (auto) 0.3 % (0.0-7.0); Hematocrit 22.8 % (36.0-46.0); Lymphocytes # (auto) 2.4 10 ^3/uL (0.4-5.4); Lymphocytes % (auto) 21.7 % (10.0-50.0); Mean Corpuscular Hemoglobin 28.4 pg (28.0-32.0); Mean Corpuscular Hgb Conc. 32.5 g/dL (32.0-36.0); Mean Corpuscular Volume 87.3 fL (80.0-100.0); Monocytes # (auto) 0.9 10 ^3/uL (0-1.3); Monocytes % (auto) 8.6 % (0.0-12.0); Neutrophils # (auto) 7.4 10 ^3/uL (1.6-8.6); Neutrophils % (auto) 68.1 % (37.0-80.0); Red Blood Cells 2.61 10^6/uL (4.0-5.20); White Blood Cell 10.9 10^3/uL (4.4-10.8)
[2024-01-08 03:59] LABS: Calcium 8.2 mg/dL (8.7-10.4); Chloride 109 mmol/L (98-107); Potassium 3.8 mmol/L (3.5-5.1); Sodium 140 mmol/L (136-145)
[2024-01-08 04:00] LABS: Anion Gap 7 (5-15); Carbon Dioxide 24 mmol/L (20-30)
[2024-01-08 04:05] LABS: BUN/Creatinine Ratio 29.8 (10.0-20.0); Blood Urea Nitrogen 14 mg/dL (9-23); Glucose 143 mg/dL (74-106); Magnesium 1.6 mg/dL (1.6-2.6)
[2024-01-08 04:07] LABS: Phosphorus 3.2 mg/dL (2.4-5.1)
[2024-01-08 07:35] LABS: Base Excess 1.1 mmol/L (-2.0-2.0)
[2024-01-08] MEDS: Ensure Enlive Vanilla 8oz Bottle PO SCH (10:56)
[2024-01-08] MEDS ORDERED: ENOXAPARIN SOD 30 MG/0.3 ML SYRINGE SC ONE (11:15)
[2024-01-08] MEDS: MAGNESIUM SULFATE 1GM/100ML 100 ML IV ONE (11:44)
[2024-01-08] MEDS: ENOXAPARIN SOD 40 MG/0.4 ML SYRINGE SC ONE (11:44)
[2024-01-09] VITALS (106 sets, daily range): BP systolic 87–115; BP diastolic 37–60; PULSE 56–138; RESP 11–46; TEMP 97.2–98.8; O2SAT 95–100
[2024-01-09 04:04] LABS: Basophils # (auto) 0.1 10 ^3/uL (0-0.2); Basophils % (auto) 0.7 % (0.0-2.0); Eosinophils # (auto) 0 10 ^3/uL (0-0.8); Eosinophils % (auto) 0.3 % (0.0-7.0); Hematocrit 23.3 % (36.0-46.0); Hemoglobin 7.7 g/dL (12.2-16.2); Lymphocytes # (auto) 1.5 10 ^3/uL (0.4-5.4); Lymphocytes % (auto) 17.7 % (10.0-50.0); Mean Corpuscular Hemoglobin 28.1 pg (28.0-32.0); Mean Corpuscular Hgb Conc. 32.9 g/dL (32.0-36.0); Mean Corpuscular Volume 85.2 fL (80.0-100.0); Monocytes # (auto) 0.7 10 ^3/uL (0-1.3); Monocytes % (auto) 8.3 % (0.0-12.0); Neutrophils # (auto) 6.2 10 ^3/uL (1.6-8.6); Nucleated Red Blood Cells % 0.1 %; Red Blood Cells 2.73 10^6/uL (4.0-5.20); Red Cell Distribution Width 20.1 % (11.8-14.3); White Blood Cell 8.5 10^3/uL (4.4-10.8)
[2024-01-09 04:30] LABS: Anion Gap 6 (5-15); Calcium 8.5 mg/dL (8.7-10.4); Carbon Dioxide 25 mmol/L (20-30); Chloride 106 mmol/L (98-107); Potassium 3.5 mmol/L (3.5-5.1); Sodium 137 mmol/L (136-145)
[2024-01-09 04:36] LABS: BUN/Creatinine Ratio 28.3 (10.0-20.0); Blood Urea Nitrogen 13 mg/dL (9-23); Glucose 98 mg/dL (74-106)
[2024-01-09 07:27] LABS: Base Excess 0.6 mmol/L (-2.0-2.0)
[2024-01-09] MEDS: ENOXAPARIN SOD 40 MG/0.4 ML SYRINGE SC SCH (07:40)
[2024-01-09] MEDS ORDERED: ENOXAPARIN SOD 30 MG/0.3 ML SYRINGE SC SCH (10:00)
[2024-01-10] VITALS (98 sets, daily range): BP systolic 81–133; BP diastolic 37–73; PULSE 57–141; RESP 11–34; TEMP 96.6–98.6; O2SAT 89–100
[2024-01-10 03:31] LABS: Basophils # (auto) 0.1 10 ^3/uL (0-0.2); Basophils % (auto) 1.3 % (0.0-2.0); Eosinophils # (auto) 0.1 10 ^3/uL (0-0.8); Eosinophils % (auto) 1.3 % (0.0-7.0); Hematocrit 21.4 % (36.0-46.0); Hemoglobin 7.2 g/dL (12.2-16.2); Lymphocytes # (auto) 1.4 10 ^3/uL (0.4-5.4); Lymphocytes % (auto) 25.5 % (10.0-50.0); Mean Corpuscular Hgb Conc. 33.9 g/dL (32.0-36.0); Mean Corpuscular Volume 85.7 fL (80.0-100.0); Monocytes # (auto) 0.6 10 ^3/uL (0-1.3); Monocytes % (auto) 9.9 % (0.0-12.0); Neutrophils # (auto) 3.4 10 ^3/uL (1.6-8.6); Nucleated Red Blood Cells % 0.1 %; Red Cell Distribution Width 19.6 % (11.8-14.3); White Blood Cell 5.6 10^3/uL (4.4-10.8)
[2024-01-10 03:42] LABS: Anion Gap 7 (5-15); Carbon Dioxide 25 mmol/L (20-30); Chloride 107 mmol/L (98-107); Potassium 3.2 mmol/L (3.5-5.1); Sodium 139 mmol/L (136-145)
[2024-01-10 03:43] LABS: Calcium 7.9 mg/dL (8.7-10.4)
[2024-01-10 03:48] LABS: BUN/Creatinine Ratio 27.8 (10.0-20.0); Blood Urea Nitrogen 10 mg/dL (9-23); Glucose 106 mg/dL (74-106)
[2024-01-10] MEDS: POTASSIUM CHL 20MEQ/100ML 100 ML IV ONE (05:08)
[2024-01-10] MEDS: POTASSIUM CHL 20MEQ/100ML 100 ML IV SCH (06:49)
[2024-01-10] MEDS: MAGNESIUM SULFATE 1GM/100ML 100 ML IV ONE ×2 (06:53→09:25)
[2024-01-10 06:59] LABS: Magnesium 1.3 mg/dL (1.6-2.6)
[2024-01-10] MEDS: ENOXAPARIN SOD 30 MG/0.3 ML SYRINGE SC SCH (07:37)
[2024-01-10 07:47] LABS: Base Excess 1.9 mmol/L (-2.0-2.0)
[2024-01-10] MEDS ORDERED: Jevity 1.2 Cal/Fiber 1 Liter GT SCH (08:15)
[2024-01-11] VITALS (97 sets, daily range): BP systolic 68–125; BP diastolic 39–79; PULSE 47–182; RESP 11–41; TEMP 96.9–98.8; O2SAT 86–100
[2024-01-11 03:54] LABS: Basophils # (auto) 0.1 10 ^3/uL (0-0.2); Basophils % (auto) 0.8 % (0.0-2.0); Eosinophils # (auto) 0.1 10 ^3/uL (0-0.8); Eosinophils % (auto) 0.8 % (0.0-7.0); Hematocrit 25.9 % (36.0-46.0); Hemoglobin 8.8 g/dL (12.2-16.2); Lymphocytes % (auto) 22.2 % (10.0-50.0); Mean Corpuscular Hgb Conc. 33.8 g/dL (32.0-36.0); Mean Corpuscular Volume 85.8 fL (80.0-100.0); Monocytes # (auto) 0.8 10 ^3/uL (0-1.3); Monocytes % (auto) 8.9 % (0.0-12.0); Neutrophils # (auto) 6.1 10 ^3/uL (1.6-8.6); Neutrophils % (auto) 67.3 % (37.0-80.0); Nucleated Red Blood Cells % 0.1 %; Red Blood Cells 3.02 10^6/uL (4.0-5.20)
[2024-01-11 03:56] LABS: Red Cell Distribution Width 20.9 % (11.8-14.3)
[2024-01-11 04:03] LABS: Anion Gap 8 (5-15); Carbon Dioxide 23 mmol/L (20-30); Chloride 106 mmol/L (98-107); Potassium 3.5 mmol/L (3.5-5.1); Sodium 137 mmol/L (136-145)
[2024-01-11 04:04] LABS: Calcium 7.8 mg/dL (8.7-10.4)
[2024-01-11 04:09] LABS: BUN/Creatinine Ratio 17.1 (10.0-20.0); Blood Urea Nitrogen 7 mg/dL (9-23); Glucose 113 mg/dL (74-106); Magnesium 1.7 mg/dL (1.6-2.6)
[2024-01-11 04:11] LABS: Phosphorus 3.3 mg/dL (2.4-5.1)
[2024-01-11] MEDS: POTASSIUM CHL 20MEQ/100ML 100 ML IV SCH (07:01)
[2024-01-11] MEDS: MAGNESIUM SULFATE 1GM/100ML 100 ML IV ONE (07:01)
[2024-01-11 10:19] LABS: Base Excess 1.7 mmol/L (-2.0-2.0)
[2024-01-12] VITALS (100 sets, daily range): BP systolic 66–127; BP diastolic 39–71; PULSE 46–83; RESP 10–29; TEMP 97–98.5; O2SAT 85–100
[2024-01-12 04:43] LABS: Eosinophils # (auto) 0.1 10 ^3/uL (0-0.8); Eosinophils % (auto) 1.6 % (0.0-7.0); Hemoglobin 8.2 g/dL (12.2-16.2); Lymphocytes # (auto) 1.8 10 ^3/uL (0.4-5.4); Monocytes # (auto) 0.6 10 ^3/uL (0-1.3); Neutrophils # (auto) 5.4 10 ^3/uL (1.6-8.6); Neutrophils % (auto) 67.8 % (37.0-80.0)
[2024-01-12 04:45] LABS: Basophils # (auto) 0 10 ^3/uL (0-0.2); Basophils % (auto) 0.6 % (0.0-2.0); Hematocrit 24.7 % (36.0-46.0); Lymphocytes % (auto) 22.9 % (10.0-50.0); Mean Corpuscular Hemoglobin 28.5 pg (28.0-32.0); Mean Corpuscular Hgb Conc. 33.1 g/dL (32.0-36.0); Mean Corpuscular Volume 86.2 fL (80.0-100.0); Monocytes % (auto) 7.1 % (0.0-12.0); Nucleated Red Blood Cells % 0.1 %; Red Blood Cells 2.86 10^6/uL (4.0-5.20)
[2024-01-12 04:49] LABS: Anion Gap 7 (5-15); Carbon Dioxide 23 mmol/L (20-30); Chloride 107 mmol/L (98-107); Potassium 3.5 mmol/L (3.5-5.1); Sodium 137 mmol/L (136-145)
[2024-01-12 04:50] LABS: Calcium 7.6 mg/dL (8.7-10.4)
[2024-01-12 04:51] LABS: Red Cell Distribution Width 21.1 % (11.8-14.3)
[2024-01-12 04:55] LABS: BUN/Creatinine Ratio 19.5 (10.0-20.0); Blood Urea Nitrogen 8 mg/dL (9-23); Glucose 100 mg/dL (74-106)
[2024-01-12 04:56] LABS: Magnesium 1.7 mg/dL (1.6-2.6)
[2024-01-12 04:57] LABS: Phosphorus 3.5 mg/dL (2.4-5.1)
[2024-01-12] MEDS: MAGNESIUM SULFATE 1GM/100ML 100 ML IV ONE (08:15)
[2024-01-12] MEDS: POTASSIUM CHL 20MEQ/100ML 100 ML IV SCH (08:15)
[2024-01-13] VITALS (33 sets, daily range): BP systolic 79–132; BP diastolic 45–82; PULSE 49–77; RESP 10–32; TEMP 97.3–98.5; O2SAT 94–100
[2024-01-13] MEDS: POTASSIUM EFFERVESENT TAB 25 MEQ PEG ONE (06:30)
[2024-01-13] MEDS: MAGNESIUM OXIDE 400 MG TAB PEG ONE (06:30)
[2024-01-13] MEDS: MAGNESIUM OXIDE 400 MG TAB PEG SCH (11:44)
[2024-01-13] MEDS: POTASSIUM EFFERVESENT TAB 25 MEQ PEG SCH (11:44)
== END 2024-01-13 15:59 | disposition hospice, home (50) | DRG 3 ==
LOC: ER 03:59 → EDBD 03:59 → EDUNIT# 03:59 → OVERFLOW 09:50 → ER 09:50 → ICU WEST 12-08 09:48 → DOU IN ICU 12-22 22:53 → ICU CENTRL 12-24 18:49 → ICU WEST 12-25 07:11 → DOU IN ICU 12-28 11:41 → TELE-EAST 12-30 09:14 → ICU WEST 12-31 17:15
PROVIDERS: ADMIT Internal Medicine; ATTEND Emergency Medicine
PROC: 02HV33Z Insertion of Infusion Device into Superior Vena Cava, Percutaneous Approach (ICD-10-PCS; 2023-12-07)
PROC: B548ZZA Ultrasonography of Superior Vena Cava, Guidance (ICD-10-PCS; 2023-12-07)
PROC: 0B968ZZ Drainage of Right Lower Lobe Bronchus, Via Natural or Artificial Opening Endoscopic (ICD-10-PCS; 2023-12-18)
PROC: 0B9J8ZX Drainage of Left Lower Lung Lobe, Via Natural or Artificial Opening Endoscopic, Diagnostic (ICD-10-PCS; 2023-12-18)
PROC: 02HV33Z Insertion of Infusion Device into Superior Vena Cava, Percutaneous Approach (ICD-10-PCS; 2023-12-18)
PROC: B548ZZA Ultrasonography of Superior Vena Cava, Guidance (ICD-10-PCS; 2023-12-18)
PROC: 30233N1 Transfusion of Nonautologous Red Blood Cells into Peripheral Vein, Percutaneous Approach (ICD-10-PCS; 2023-12-30)
PROC: 0BCL8ZZ Extirpation of Matter from Left Lung, Via Natural or Artificial Opening Endoscopic (ICD-10-PCS; principal; 2023-12-31)
PROC: 5A1955Z Respiratory Ventilation, Greater than 96 Consecutive Hours (ICD-10-PCS; 2023-12-31)
PROC: 0BH17EZ Insertion of Endotracheal Airway into Trachea, Via Natural or Artificial Opening (ICD-10-PCS; 2023-12-31)
PROC: 4A133B1 Monitoring of Arterial Pressure, Peripheral, Percutaneous Approach (ICD-10-PCS; 2023-12-31)
PROC: 0B110F4 Bypass Trachea to Cutaneous with Tracheostomy Device, Open Approach (ICD-10-PCS; 2024-01-06)
PROC: 0DH63UZ Insertion of Feeding Device into Stomach, Percutaneous Approach (ICD-10-PCS; 2024-01-06 07:32)
DX: A41.2 Sepsis due to unspecified staphylococcus (principal); G93.41 Metabolic encephalopathy; I21.A1 Myocardial infarction type 2; R65.21 Severe sepsis with septic shock; J96.21 Acute and chronic respiratory failure with hypoxia; J96.22 Acute and chronic respiratory failure with hypercapnia; J15.212 Pneumonia due to Methicillin resistant Staphylococcus aureus; J69.0 Pneumonitis due to inhalation of food and vomit; I50.43 Acute on chronic combined systolic (congestive) and diastolic (congestive) heart failure; G93.1 Anoxic brain damage, not elsewhere classified; N39.0 Urinary tract infection, site not specified; E87.0 Hyperosmolality and hypernatremia; J44.0 Chronic obstructive pulmonary disease with (acute) lower respiratory infection; J44.1 Chronic obstructive pulmonary disease with (acute) exacerbation; L03.311 Cellulitis of abdominal wall; E46 Unspecified protein-calorie malnutrition; Z68.1 Body mass index [BMI] 19.9 or less, adult; Z99.11 Dependence on respirator [ventilator] status; G40.209 Localization-related (focal) (partial) symptomatic epilepsy and epileptic syndromes with complex partial seizures, not intractable, without status epilepticus; E87.6 Hypokalemia; F17.200 Nicotine dependence, unspecified, uncomplicated; I48.0 Paroxysmal atrial fibrillation; Z74.01 Bed confinement status; E03.9 Hypothyroidism, unspecified; E78.5 Hyperlipidemia, unspecified; G47.33 Obstructive sleep apnea (adult) (pediatric); I11.0 Hypertensive heart disease with heart failure; B96.5 Pseudomonas (aeruginosa) (mallei) (pseudomallei) as the cause of diseases classified elsewhere; D50.9 Iron deficiency anemia, unspecified; E83.39 Other disorders of phosphorus metabolism; E83.51 Hypocalcemia; K59.00 Constipation, unspecified; K21.9 Gastro-esophageal reflux disease without esophagitis; E66.9 Obesity, unspecified; E86.0 Dehydration; E83.42 Hypomagnesemia; M06.9 Rheumatoid arthritis, unspecified; K29.80 Duodenitis without bleeding; F01.50 Vascular dementia, unspecified severity, without behavioral disturbance, psychotic disturbance, mood disturbance, and anxiety; R13.10 Dysphagia, unspecified; M51.34 Other intervertebral disc degeneration, thoracic region; Z20.822 Contact with and (suspected) exposure to COVID-19; R62.7 Adult failure to thrive; Z88.1 Allergy status to other antibiotic agents; Z79.899 Other long term (current) drug therapy; Z86.73 Personal history of transient ischemic attack (TIA), and cerebral infarction without residual deficits; Z88.0 Allergy status to penicillin; Z81.8 Family history of other mental and behavioral disorders; Z90.710 Acquired absence of both cervix and uterus; Z82.49 Family history of ischemic heart disease and other diseases of the circulatory system; Z87.440 Personal history of urinary (tract) infections; Z87.19 Personal history of other diseases of the digestive system
CPT/HCPCS: 31500; 31645; 31720; 36415; 36569; 36600; 70450; 71045; 71250; 74176; 76705; 78226; 80048; 80053; 80061; 80069; 80202; 81001; 82140; 82270; 82306; 82533; 82550; 82565; 82607; 82728; 82746; 82805; 82962; 83010; 83036; 83540; 83550; 83605; 83615; 83690; 83735; 83880; 83930; 83935; 84100; 84132; 84443; 84478; 84484; 85007; 85014; 85018; 85025; 85027; 85045; 85379; 85610; 85730; 86850; 86860; 86870; 86880; 86900; 86901; 86906; 86922; 87040; 87070; 87076; 87077; 87081; 87086; 87088; 87186; 87205; 87278; 87426; 87804; 92507; 92610; 93005; 93306; 93970; 94002; 94003; 94640; 94667; 94668; 95819; 96365; 96368; 97163; 99291; C9113; C9254; G0378; J0171; J0690; J1100; J1756; J1815; J1885; J1956; J2001; J2185; J2248; J2250; J2405; J2470; J2704; J3480; J3490; J7060; P9047